=== PATIENT | male | born 1960 | race Caucasian/White ===

== ENCOUNTER 2018-06-20 20:18 | Inpatient (IN) | payer OTHER ==
[2018-06-20 21:41] LABS: Basophils % (A) 0 %; Eosinophils % (A) 1 %; HCT 34.5 % (39.0-53.0); HGB 9.7 gm/dL (13.0-17.5); Hypochromasia Marked; Lymphocytes # (A) 0.4 k/uL (1.0-4.8); Lymphocytes % (A) 5 %; MCH 20.9 pg (25.0-35.0); MCV 74.7 fL (80.0-100.0); Mean Platelet Volume 6.5; Microcytosis Slight; Monocytes # (A) 0.8 k/uL (0-1.0); Monocytes % (A) 10 %; Neutrophils # (A) 6.1 k/uL (1.3-7.7); Neutrophils % (A) 82 %; Platelet Count 250 k/uL (150-450); RBC 4.62 m/uL (4.30-5.90); RDW 13.8 % (11.5-15.5); WBC 7.5 k/uL (3.8-10.6)
[2018-06-20] MEDS ORDERED: MORPHINE SULFATE 4 MG/ML SYRINGE IVP STA (21:41)
[2018-06-20 21:50] LABS: ALT 34 U/L (21-72); AST 99 U/L (17-59); Albumin 3.6 g/dL (3.5-5.0); Alkaline Phosphatase 163 U/L (38-126); Anion Gap 10 mmol/L; Blood Urea Nitrogen 20 mg/dL (9-20); Calcium 8.9 mg/dL (8.4-10.2); Carbon Dioxide 26 mmol/L (22-30); Chloride 103 mmol/L (98-107); Glucose 111 mg/dL (74-99); Sodium 139 mmol/L (137-145); Total Bilirubin 1.6 mg/dL (0.2-1.3); Total Protein 6.7 g/dL (6.3-8.2)
--- NOTE | 2018-06-20 21:54 | XR ---
PROCEDURE: XR knee complete LT 3V DATE AND TIME: 06/20/2018 9:15 PM CLINICAL INDICATION: Pain TECHNIQUE: Department protocol. 3V COMPARISON: None FINDINGS: There is no fracture or malalignment. However, there is a joint effusion seen in the suprapatellar bursa. [id number] anterior compartment and moderate medial compartment osteoarthritis changes are appr eciated. IMPRESSION: Joint effusion. Osteoarthritis.
[2018-06-20 22:02] LABS: Potassium 4.2 mmol/L (3.5-5.1)
[2018-06-20] MEDS ORDERED: ACETAMINOPHEN TAB 500 MG TAB PO STA (22:20)
[2018-06-20] MEDS ORDERED: SODIUM CHLORIDE 0.9% 1,000 ML IV ONE (22:25)
[2018-06-20] MEDS ORDERED: VANCOMYCIN IV PER PHARMACY 1 EACH MISC MISCELLANE PRN (22:25)
--- NOTE | 2018-06-20 22:54 | ED ---
Extremity Problem HPI - General Source: patient Mode of arrival: wheelchair Limitations: no limitations <Marine Escalante - Last Filed: 06/21/18 01:36> <Devang Jacob - Last Filed: 06/21/18 02:34> - General Chief complaint: Extremity Problem,Nontraumatic Stated complaint: Knee Swelling Time Seen by Provider: 06/20/18 20:30 - History of Present Illness Initial comments: 57-year-old male patient presents to the emergency department today for evaluation of left knee pain and swelling. Patient states his been having pain to the knee for the last 4 days. Patient states that the pain suddenly increased today so he went to urgent care for evaluation. They sent him here for ultrasound to rule out DVT. Patient states he is unable to fully extend the leg but he is able to bend it. Patient denies any calf pain or tenderness. Denies any fevers or chills. Patient states he has been taking Tylenol and ibuprofen for pain but it is not helping. Patient denies any history of similar symptoms. Denies any injury to the knee. 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 Does not currently follow with a primary care physician. Patient denies any recent rash, shortness breath, chest pain, abdominal pain, nausea, vomiting, diarrhea, constipation, back pain, numbness, tingling, dizziness, weakness, hematuria, dysuria, urinary urgency, urinary frequency, headache, visual changes, or any other complaints. (Marine Escalante) - Related Data Home Medications Medication Instructions Recorded Confirmed Ferrous Sulfate [Iron] 325 mg PO DAILY 06/20/18 06/20/18 Allergies Allergy/AdvReac Type Severity Reaction Status Date / Time No Known Allergies Allergy Verified 06/20/18 20:25 Review of Systems ROS Other: All systems not noted in ROS Statement are negative. <Marine Escalante - Last Filed: 06/21/18 01:36> ROS Other: All systems not noted in ROS Statement are negative. <Devang Jacob - Last Filed: 06/21/18 02:34> ROS Statement: Those systems with pertinent positive or pertinent negative responses have been documented in the HPI. Past Medical History Past Medical History: No Reported History History of Any Multi-Drug Resistant Organisms: None Reported Past Surgical History: Orthopedic Surgery Past Psychological History: No Psychological Hx Reported Smoking Status: Never smoker Past Alcohol Use History: Occasional Past Drug Use History: None Reported <Marine Escalante M - Last Filed: 06/21/18 01:36> General Exam Limitations: no limitations General appearance: alert, in no apparent distress, other (This is a well- developed, well-nourished adult male patient in no acute distress. Vital signs upon presentation are temperature 98.9F, pulse 100, respirations 16, blood pressure 138/72, pulse ox 98% on room air.) Eye exam: Present: normal appearance, PERRL, EOMI. Absent: scleral icterus, conjunctival injection, periorbital swelling ENT exam: Present: normal exam, normal oropharynx, mucous membranes moist Respiratory exam: Present: normal lung sounds bilaterally. Absent: respiratory distress, wheezes, rales, rhonchi, stridor Cardiovascular Exam: Present: regular rate, normal rhythm, normal heart sounds. Absent: systolic murmur, diastolic murmur, rubs, gallop, clicks GI/Abdominal exam: Present: soft, normal bowel sounds. Absent: distended, tenderness, guarding, rebound, rigid Extremities exam: Present: tenderness (Left anterior knee tenderness), normal capillary refill, joint swelling (Left knee swelling and erythema), other (Left knee swelling, medial knee erythema). Absent: normal inspection, full ROM ( Patient unable to fully extend the left knee), pedal edema, calf tenderness Neurological exam: Present: alert, oriented X3, CN II-XII intact Psychiatric exam: Present: normal affect, normal mood Skin exam: Present: warm, dry, intact, normal color. Absent: rash <Marine Escalante M - Last Filed: 06/21/18 01:36> Vital Signs 06/20/18 06/20/18 06/20/18 20:23 22:09 22:27 Temperature 98.9 F 101.4 F H Pulse Rate 100 92 Pulse Rate [ Pulse Oximetery ] Respiratory 18 18 Rate Blood Pressure 138/72 140/83 Blood Pressure [Left Arm] O2 Sat by Pulse 98 99 Oximetry 06/21/18 06/21/18 06/21/18 00:33 01:13 01:20 Temperature 96.9 F L 98.8 F 99.0 F Pulse Rate 90 84 Pulse Rate [ 81 Pulse Oximetery ] Respiratory 18 16 16 Rate Blood Pressure 135/65 131/64 Blood Pressure 142/81 [Left Arm] O2 Sat by Pulse 97 96 97 Oximetry Procedures - Joint Aspiration/Injection Consent Obtained: verbal consent Time Out Performed: Yes Indications: R/O septic arthritis Side of Body: left Joint Aspirated: knee Skin Prep: Povidone-Iodine1% Local Anesthesia Used: Lidocaine 1% Needle Size Used: 20G Syringe Size Used: 20cc Fluid Obtained: turbid Patient Tolerated Procedure: well Complications: none <Devang Jacob - Last Filed: 06/21/18 02:34> Medical Decision Making - Lab Data Result diagrams: 06/20/18 21:30 06/20/18 21:30 - Radiology Data Radiology results: report reviewed, image reviewed <Marine Escalante - Last Filed: 06/21/18 01:36> - Lab Data Result diagrams: 06/20/18 21:30 06/20/18 21:30 <Devang Jacob - Last Filed: 06/21/18 02:34> - Medical Decision Making 57-year-old male patient with past medical history significant for age Ht presents to the emergency department today for evaluation of left knee pain and swelling. Physical examination did reveal small area of cellulitis to the medial aspect of the knee. Left is significantly more swollen and hot to touch than the right. Patient had good neurovascular status, distal pulses are intact. X-ray of the left knee did show evidence of effusion but no osseous abnormalities. I visited with my attending Dr. Austin to perform left knee joint aspiration, we did obtain only 2 mL of synovial fluid that did appear cloudy, we did send this for culture but did not have enough fluid for cell count or synovial crystal evaluation. Patient did have temperature in the emergency department of 101.4F, we did start vancomycin for septic arthritis. Patient will be admitted to the hospital for observation and evaluation by orthopedic specialty. Dr. Diaz accepted admission. (Marine Escalante) I saw this patient in conjunction with the physician assistant professor of education. I performed independent history and physical exam. Agree with case management. (Devang Jacob) - Lab Data Lab Results 06/20/18 06/20/18 Range/Units 21:30 21:30 WBC 7.5 (3.8-10.6) k/uL RBC 4.62 (4.30-5.90) m/uL Hgb 9.7 L (13.0-17.5) gm/dL Hct 34.5 L (39.0-53.0) % MCV 74.7 L (80.0-100.0) fL MCH 20.9 L (25.0-35.0) pg MCHC 28.0 L (31.0-37.0) g/dL RDW 13.8 (11.5-15.5) % Plt Count 250 (150-450) k/uL Neutrophils % 82 % Lymphocytes % 5 % Monocytes % 10 % Eosinophils % 1 % Basophils % 0 % Neutrophils # 6.1 (1.3-7.7) k/uL Lymphocytes # 0.4 L (1.0-4.8) k/uL Monocytes # 0.8 (0-1.0) k/uL Eosinophils # 0.0 (0-0.7) k/uL Basophils # 0.0 (0-0.2) k/uL Hypochromasia Marked Microcytosis Slight Sodium 139 (137-145) mmol/L Potassium 4.2 (3.5-5.1) mmol/L Chloride 103 (98-107) mmol/L Carbon Dioxide 26 (22-30) mmol/L Anion Gap 10 mmol/L BUN 20 (9-20) mg/dL Creatinine 0.59 L (0.66-1.25) mg/dL Est GFR (CKD-EPI)AfAm >90 (>60 ml/min/1.73 sqM) Est GFR (CKD-EPI)NonAf >90 (>60 ml/min/1.73 sqM) Glucose 111 H (74-99) mg/dL Calcium 8.9 (8.4-10.2) mg/dL Total Bilirubin 1.6 H (0.2-1.3) mg/dL AST 99 H (17-59) U/L ALT 34 (21-72) U/L Alkaline Phosphatase 163 H (38-126) U/L Total Protein 6.7 (6.3-8.2) g/dL Albumin 3.6 (3.5-5.0) g/dL - Radiology Data Three-view x-ray of the left knee is obtained. There is no fracture or malalignment. There is joint effusion seen in the suprapatellar bursa. Mild to moderate anterior compartment moderate medial compartment osteoarthritis changes are appreciated. Impression by Dr. Isra Queen shows joint effusion and osteoarthritis. (Marine Escalante) Disposition Decision to Admit Reason: Admit from EC Decision Date: 06/21/18 Decision Time: 00:41 <Marine Escalante - Last Filed: 06/21/18 01:36> <Devang Jacob - Last Filed: 06/21/18 02:34> Clinical Impression: Septic arthritis of knee, left Disposition: ADMITTED IP TO THIS HOSP Condition: Serious
[2018-06-20] MEDS ORDERED: VANCOMYCIN 1,750 MG in SODIUM CHLORIDE 0.9% 500 ML IVPB ONE (23:00)
[2018-06-20] MEDS ORDERED: LIDOCAINE 1% INJ 10MG/ML (20 ML MDV) SQ ONE (23:30)
[2018-06-21] MEDS ORDERED: NALOXONE 0.4 MG/ML 1 ML VIAL IV PRN (00:38)
[2018-06-21] MEDS: SODIUM CHLORIDE 0.9% 1,000 ML IV SCH (01:22)
--- NOTE | 2018-06-21 01:23 | P.HPIM ---
History of Present Illness H&P Date: 06/21/18 Chief Complaint: Left knee pain 57-year-old male patient presents to the emergency department via private vehicle today for evaluation of left knee pain and swelling. Patient complains his left knee over the last 4 days, that was initially mild and begun spontaneously at approximately 3 AM in the morning in the left medial patellar area, the patient denies any history of trauma, denies any redness, or subjective fevers chills or night sweats at home. The patient has been taking [id number] Tylenol for his pain and attempted to use copper fit knee brace which seems to have worsened the swelling. Patient states that the pain suddenly increased today so he went to urgent care for evaluation. They sent him here for ultrasound to rule out DVT. Patient states he is unable to fully extend the leg but he is able to bend it. Patient denies any calf pain or tenderness. Denies any fevers or chills. Patient states he has been taking Tylenol and ibuprofen for pain but it is not helping. Patient denies any history of similar symptoms. Denies any injury to the knee. 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 Does not currently follow with a primary care physician. Patient denies any recent rash, shortness breath, chest pain, abdominal pain, nausea, vomiting, diarrhea, constipation, back pain, numbness, tingling, dizziness, weakness, hematuria, dysuria, urinary urgency, urinary frequency, headache, visual changes, or any other complaints. The patient denies any other arthralgias. In the ER the patient had a conference of workup his labs are pretty unremarkable, no leukocytosis noted but was noted to be febrile [id number] Review of Systems Pertinent positives per HPI, all other review of systems are otherwise negative Past Medical History Past Medical History: No Reported History History of Any Multi-Drug Resistant Organisms: None Reported Past Surgical History: Orthopedic Surgery Past Psychological History: No Psychological Hx Reported Smoking Status: Never smoker Past Alcohol Use History: Occasional Past Drug Use History: None Reported Medications and Allergies Home Medications Medication Instructions Recorded Confirmed Type Ferrous Sulfate [Iron] 325 mg PO DAILY 06/20/18 06/20/18 History Allergies Allergy/AdvReac Type Severity Reaction Status Date / Time No Known Allergies Allergy Verified 06/20/18 20:25 Physical Exam Vitals: Vital Signs Temp Pulse Resp BP Pulse Ox 06/21/18 00:33 96.9 F L 90 18 135/65 97 06/20/18 22:27 92 99 06/20/18 22:09 101.4 F H 18 140/83 06/20/18 20:23 98.9 F 100 18 138/72 98 Intake and Output 06/20/18 06/20/18 06/21/18 14:59 22:59 06:59 Other: Weight 92.986 kg Constitutional: No acute distress, conversant, pleasant Eyes: Anicteric sclerae, moist conjunctiva, no lid-lag, PERRLA ENMT: NC/AT,Oropharynx clear, no erythema, exudates Neck:Supple, FROM, no masses, or JVD, No carotid bruits; No thyromegaly Lungs: Clear to auscultation, Clear to percussion, Normal respiratory effort, no accessory muscle use Cardiovascular: Heart regular in rate and rhythm, No murmurs, gallops, or rubs no peripheral edema Abdominal: Soft Nontender, nom distended, no guarding, no rebound or rigidity, Normoactive bowel sounds No hepatomegaly, No splenomegaly, No palpable mass No abdominal wall hernia noted Skin: Normal temperature, tone, texture, turgor, No induration No subcutaneous nodules, No rash, lesions, No ulcers Extremities:Present: tenderness (Left anterior knee tenderness), normal capillary refill, joint swelling (Left knee swelling and erythema), other (Left knee swelling, medial knee erythema). Absent: normal inspection, full ROM ( Patient unable to fully extend the left knee), pedal edema, calf tenderness Psychiatric: Alert and oriented to person, place and time, Appropriate affect Intact judgement Neuro: Muscles Strength 5/5 in all 4 extremities, Sensation to light touch grossly present throughout, Cranial nerves II-XII grossly intact. No focal sensory deficits Results CBC & Chem 7: 06/20/18 21:30 06/20/18 21:30 Labs: Abnormal Lab Results - Last 24 Hours (Table) 06/20/18 06/20/18 Range/Units 21:30 21:30 Hgb 9.7 L (13.0-17.5) gm/dL Hct 34.5 L (39.0-53.0) % MCV 74.7 L (80.0-100.0) fL MCH 20.9 L (25.0-35.0) pg MCHC 28.0 L (31.0-37.0) g/dL Lymphocytes # 0.4 L (1.0-4.8) k/uL Creatinine 0.59 L (0.66-1.25) mg/dL Glucose 111 H (74-99) mg/dL Total Bilirubin 1.6 H (0.2-1.3) mg/dL AST 99 H (17-59) U/L Alkaline Phosphatase 163 H (38-126) U/L Assessment and Plan (1) Left knee pain Current Visit: Yes Status: Acute Code(s): M25.562 - PAIN IN LEFT KNEE SNOMED Code(s): 37075237 (2) Fever Current Visit: Yes Status: Acute Code(s): R50.9 - FEVER, UNSPECIFIED SNOMED Code(s): 488563697 (3) Patellar bursitis of left knee Current Visit: Yes Status: Acute Code(s): M70.52 - OTHER BURSITIS OF KNEE, LEFT KNEE SNOMED Code(s): 0422466404664203 (4) Iron deficiency anemia Current Visit: Yes Status: Acute Code(s): D50.9 - IRON DEFICIENCY ANEMIA, UNSPECIFIED SNOMED Code(s): 42486508 (5) Osteoarthritis of left knee Current Visit: Yes Status: Acute Code(s): M17.12 - UNILATERAL PRIMARY OSTEOARTHRITIS, LEFT KNEE SNOMED Code(s): 286872930929840 Plan: The patient is patient observation anticipate a less than 2 midnight stay after presenting with left knee pain likely has patellar bursitis there is a concern for septic arthritis/bursitis given the patient being febrile in the ER, the patient has no leukocytosis or left shift, he ED physician attempted to aspirate the joint to obtain synovial fluid analysis but did not get much fluid , labs are pending. Started on empiric IV antibiotics with vancomycin and Rocephin, obtain left lower extremity venous Doppler to rule out DVT. orthopedic services been consulted for further recommendations. Continue with supportive management, Tylenol for fever, Zofran when necessary nausea and IV fluids. I will place patient on DVT prophylaxis and continue to follow his clinical course CODE STATUS full code Discussed plan of care with : Patient Anticipated discharge in 1-2 days
[2018-06-21 02:17] VITALS: BMI 26.3
[2018-06-21] MEDS: MORPHINE SULFATE 4 MG/ML SYRINGE IV PRN ×5 (02:20→21:52)
[2018-06-21] MEDS: VANCOMYCIN 1,500 MG in SODIUM CHLORIDE 0.9% 250 ML IVPB SCH ×3 (07:27→22:55)
[2018-06-21] MEDS ORDERED: LIDOCAINE 1% INJ 10MG/ML (20 ML MDV) SQ ONE (08:30)
--- NOTE | 2018-06-21 09:06 | US ---
EXAMINATION TYPE: US venous doppler duplex LE LT DATE OF EXAM: 06/21/2018 8:16 AM COMPARISON: NONE CLINICAL HISTORY: LEft leg pain. Leg started hurting about 4 days ago in middle of the night. No inj ury. Swollen leg. No redness. Pain. SIDE PERFORMED: Left TECHNIQUE: The lower extremity deep venous system is examined utilizing real time linear array sonog arely with graded compression, doppler sonography and color-flow sonography. VESSELS IMAGED: External Iliac Vein (EIV) Common Femoral Vein Deep Femoral Vein Greater Saphenous Vein * Femoral Vein Popliteal Vein Small Saphenous Vein * Proximal Calf Veins (* superficial vessels) There is normal flow, compressibility, vascular waveforms. Left Leg: Negative for DVT. Posterior knee, fluid collection seen with some internal echoes inferio rly= 5.4 x 3.3 x 1.7 cm IMPRESSION: No evident deep venous thrombosis at or above the left knee. 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
[2018-06-21] MEDS: ENOXAPARIN 40 MG/0.4 ML SYRINGE SQ SCH (09:49)
[2018-06-21 12:16] LABS: Appearance,BF Cloudy; Color,BF Yellow; Nucleated Cells, Body Fluid 6200 /uL; RBC, Body Fluid 19300 /uL
[2018-06-21 12:22] LABS: Mononuclear WBC,Body Fluid 17 %; Polynuclear WBC,Body Fluid 83 %; Total Cells Counted,Body Fluid 100
--- NOTE | 2018-06-21 13:26 | P.CNOR ---
History of Present Illness - HPI Consult date: 06/21/18 History of present illness: This is a 57-year-old male admitted for left knee pain 4 days. Patient presented to the emergency room because his pain significantly worsened yesterday. Patient denies any injury. Patient denies any history of left knee pain or gout. Patient states that he had a fever yesterday in the hospital, but otherwise he has felt fine. 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 Patient denies any numbness, weakness, tingling, abdominal pain, shortness of breath or chest pain. Review of Systems See HPI. Past Medical History Past Medical History: No Reported History History of Any Multi-Drug Resistant Organisms: None Reported Past Surgical History: Orthopedic Surgery Past Anesthesia/Blood Transfusion Reactions: No Reported Reaction Past Psychological History: No Psychological Hx Reported Smoking Status: Never smoker Past Alcohol Use History: Occasional Past Drug Use History: None Reported - Past Family History Father Additional Family Medical History / Comment(s): Nessa Garigs disease Brother(s) History Unknown: Yes Additional Family Medical History / Comment(s): hemorrhagic Telangietasia Medications and Allergies Home Medications Medication Instructions Recorded Confirmed Type Ferrous Sulfate [Iron] 325 mg PO DAILY 06/20/18 06/20/18 History Allergies Allergy/AdvReac Type Severity Reaction Status Date / Time No Known Allergies Allergy Verified 06/20/18 20:25 Physical Examination On exam patient is lying comfortably in bed in no acute distress. There is mild effusion on exam of the left knee. There is swelling and tenderness palpation over the distal quadriceps tendon. There is no erythema. Skin is intact. There is also swelling over the left patella. No fluctuance. Calf is soft and nontender to palpation. Patient has limited range of motion of the left knee due to pain and swelling. Sensation is intact. Neurovascular status and circulatory status are intact. Results X-rays of the left knee are negative for any fracture or dislocation. There is a joint effusion noted. A venous Doppler ultrasound of the left lower extremity is negative for DVT. 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 - Labs Labs: Abnormal Lab Results - Last 24 Hours (Table) 06/20/18 06/20/18 Range/Units 21:30 21:30 Hgb 9.7 L (13.0-17.5) gm/dL Hct 34.5 L (39.0-53.0) % MCV 74.7 L (80.0-100.0) fL MCH 20.9 L (25.0-35.0) pg MCHC 28.0 L (31.0-37.0) g/dL Lymphocytes # 0.4 L (1.0-4.8) k/uL Creatinine 0.59 L (0.66-1.25) mg/dL Glucose 111 H (74-99) mg/dL Total Bilirubin 1.6 H (0.2-1.3) mg/dL AST 99 H (17-59) U/L Alkaline Phosphatase 163 H (38-126) U/L H & H 06/20/18 Range/Units 21:30 Hgb 9.7 L (13.0-17.5) gm/dL Hct 34.5 L (39.0-53.0) % Result Diagrams: 06/20/18 21:30 06/20/18 21:30 Assessment and Plan (1) Effusion, left knee Current Visit: Yes Status: Acute Code(s): M25.462 - EFFUSION, LEFT KNEE SNOMED Code(s): 855735436 (2) Left knee pain Current Visit: Yes Status: Acute Code(s): M25.562 - PAIN IN LEFT KNEE SNOMED Code(s): 58964197 (3) Osteoarthritis of left knee Current Visit: Yes Status: Acute Code(s): M17.12 - UNILATERAL PRIMARY OSTEOARTHRITIS, LEFT KNEE SNOMED Code(s): 966465197485421 (4) Patellar bursitis of left knee Current Visit: Yes Status: Acute Code(s): M70.52 - OTHER BURSITIS OF KNEE, LEFT KNEE SNOMED Code(s): 1573223822644568 Plan: 1. Left knee is aspirated under sterile conditions, 1% lidocaine was used to anesthetize the area. 2 mL of blood tinged cloudy fluid is obtained. Fluid is sent to the lab. Patient tolerated the procedure well. 2. Compressive Kobe wrap to the left knee along with ice. 3. Appreciate input from medicine. 4. Further recommendations pending synovial fluid analysis and MRI. No surgical intervention planned. Will continue to follow the patient closely.
[2018-06-21] MEDS: ACETAMINOPHEN TAB 325 MG TAB PO PRN (16:04)
--- NOTE | 2018-06-21 17:42 | MR ---
EXAMINATION TYPE: MR knee LT wo/w con DATE OF EXAM: 06/21/2018 COMPARISON: None HISTORY: Pain and swelling on top of knee, rule out infection TECHNIQUE: Multiplanar, multisequence images of the knee is performed with 9.5 mL intravenous Gadavis t gadolinium contrast. FINDINGS: There is narrowing of the medial joint space. There is increased signal in the medial tibial condyle on the proton density images. There are small areas of increased signal in the subchondral medial fem oral condyle. The collateral ligaments appear intact. Anterior and posterior cruciate ligaments are i ntact. There is extensive increased signal in the posterior horn medial meniscus. There is horizontal defect through the anterior horn medial meniscus. The lateral meniscus appears fairly normal. The contrast images show diffuse synovial enhancement. There is popliteal cyst also with synovial enh ancement. There is subcutaneous edema around the knee and more anteriorly. Popliteal cyst measures 4. 5 x 1.2 cm. IMPRESSION: There is complex tear of the posterior horn medial meniscus. There is a horizontal tear anterior horn medial meniscus. There is edema on the medial aspect of the knee joint space and involving mainly th e tibial condyle and consistent with bone bruise. No fracture line seen. Knee joint effusion with extensive synovial enhancement consistent with inflammatory process. This co uld be septic arthritis. Subcutaneous edema consistent with cellulitis.
[2018-06-22] MEDS: ACETAMINOPHEN TAB 325 MG TAB PO PRN ×3 (00:07→21:00)
[2018-06-22] MEDS: SODIUM CHLORIDE 0.9% 1,000 ML IV SCH ×3 (00:08→21:43)
[2018-06-22] MEDS: MORPHINE SULFATE 4 MG/ML SYRINGE IV PRN ×3 (05:22→21:00)
[2018-06-22] MEDS ORDERED: VANCOMYCIN TROUGH DUE 1 EACH MISC MISCELLANE ONE (06:00)
[2018-06-22 06:30] LABS: Basophils % (A) 0 %; Eosinophils % (A) 1 %; Hypochromasia Marked; Lymphocytes # (A) 0.3 k/uL (1.0-4.8); Lymphocytes % (A) 6 %; MCHC 27.8 g/dL (31.0-37.0); MCV 71.9 fL (80.0-100.0); Mean Platelet Volume 6.8; Microcytosis Slight; Monocytes # (A) 0.5 k/uL (0-1.0); Monocytes % (A) 9 %; Neutrophils # (A) 4.5 k/uL (1.3-7.7); Neutrophils % (A) 83 %; Platelet Count 197 k/uL (150-450); RBC 4.03 m/uL (4.30-5.90); WBC 5.5 k/uL (3.8-10.6)
[2018-06-22 06:34] LABS: HGB 8.1 gm/dL (13.0-17.5)
[2018-06-22 07:14] LABS: Anion Gap 10 mmol/L; Blood Urea Nitrogen 16 mg/dL (9-20); Calcium 8.4 mg/dL (8.4-10.2); Carbon Dioxide 24 mmol/L (22-30); Chloride 103 mmol/L (98-107); Glucose 113 mg/dL (74-99); Potassium 3.9 mmol/L (3.5-5.1); Sodium 137 mmol/L (137-145)
[2018-06-22] MEDS: VANCOMYCIN 1,500 MG in SODIUM CHLORIDE 0.9% 250 ML IVPB SCH (08:20)
[2018-06-22] MEDS: ENOXAPARIN 40 MG/0.4 ML SYRINGE SQ SCH (08:25)
--- NOTE | 2018-06-22 10:06 | P.PN ---
Subjective Progress Note Date: 06/22/18 This is a 57-year-old male who was admitted for left knee pain to rule out septic arthritis. Patient states that his pain has not improved at all today. Patient reports pain with any movement. Patient denies any fever/chills, numbness, weakness, tingling, abdominal pain, shortness of breath or chest pain. Objective - Vital Signs Vital signs: Vital Signs Temp 99 F 06/22/18 07:00 Pulse 93 06/22/18 07:00 Resp 16 06/22/18 07:00 BP 138/80 06/22/18 07:00 Pulse Ox 97 06/22/18 07:00 Intake & Output 06/21/18 06/22/18 06/22/18 18:59 06:59 18:59 Intake Total 1250 1330 180 Output Total 950 Balance 1250 380 180 Intake: Intake, IV Titration 850 370 Amount Sodium Chloride 0.9% 1, 600 320 000 ml @ 20 mls/hr IV . Q24H ANA Rx#:[id number] Vancomycin 1,500 mg In 250 Sodium Chloride 0.9% 250 ml @ 125 mls/hr IVPB Q8H ANA Rx#:[id number] cefTRIAXone 1,000 mg In 50 Sodium Chloride 0.9% 50 ml @ 100 mls/hr IVPB Q24H ANA Rx#:[id number] Oral 400 960 180 Output: Urine 950 - Exam On exam patient is lying comfortably in bed in no acute distress. Patient is alert and oriented 3. Swelling about the left knee. There is no erythema. Patient has pain with any range of movement of the left lower extremity. Calf is soft and nontender to palpation. Sensation is intact. Skin is intact. Neurovascular status and circulatory status are intact. - Labs CBC & Chem 7: 06/22/18 06:05 06/22/18 06:05 Labs: Abnormal Lab Results - Last 24 Hours (Table) 06/22/18 06/22/18 Range/Units 06:05 06:05 RBC 4.03 L (4.30-5.90) m/uL Hgb 8.1 L D (13.0-17.5) gm/dL Hct 29.0 L (39.0-53.0) % MCV 71.9 L (80.0-100.0) fL MCH 20.0 L (25.0-35.0) pg MCHC 27.8 L (31.0-37.0) g/dL Lymphocytes # 0.3 L (1.0-4.8) k/uL Creatinine 0.50 L (0.66-1.25) mg/dL Glucose 113 H (74-99) mg/dL Microbiology - Last 24 Hours (Table) 06/21/18 09:45 Gram Stain - Preliminary Knee - Left Body Fluid Culture - Preliminary 06/20/18 21:30 Blood Culture - Preliminary Blood No Growth after 24 hours 06/21/18 00:33 Gram Stain - Preliminary Knee - Left Body Fluid Culture - Preliminary Assessment and Plan (1) Effusion, left knee Current Visit: Yes Status: Acute Code(s): M25.462 - EFFUSION, LEFT KNEE SNOMED Code(s): 724529391 (2) Left knee pain Current Visit: Yes Status: Acute Code(s): M25.562 - PAIN IN LEFT KNEE SNOMED Code(s): 00986921 (3) Osteoarthritis of left knee Current Visit: Yes Status: Acute Code(s): M17.12 - UNILATERAL PRIMARY OSTEOARTHRITIS, LEFT KNEE SNOMED Code(s): 884992317965981 (4) Patellar bursitis of left knee Current Visit: Yes Status: Acute Code(s): M70.52 - OTHER BURSITIS OF KNEE, LEFT KNEE SNOMED Code(s): 5962071221263439 (5) Septic arthritis of knee, left Current Visit: Yes Status: Acute Code(s): M00.9 - PYOGENIC ARTHRITIS, UNSPECIFIED SNOMED Code(s): 844937807 Plan: An MRI of the left knee dated 06/21/2018 shows: There is a complex tear posterior horn medial meniscus. There is a horizontal tear anterior horn medial meniscus. There is edema on the medial aspect of the knee joint space and involving mainly the tibial condyle and consistent with bone bruise. No fracture line seen. Knee joint effusion with extensive synovial enhancement consistent with inflammatory process. This could be septic arthritis. Subcutaneous edema consistent with cellulitis. 1. Preliminary Gram stain of left knee aspirate shows rare gram-positive cocci. Cultures are pending. 2. Continue ice and Kobe wrap to the left knee. 3. NPO after midnight. 4. Appreciate input from infectious disease. 5. Arthroscopic irrigation and debridement scheduled for 06/23/2018 pending medical clearance and consent.
--- NOTE | 2018-06-22 13:20 | P.PN ---
Subjective Progress Note Date: 06/22/18 The patient was seen and examined at the bedside. He noted that the pain is unchanged from the day prior and that he has intermittent sweats and 2 episodes of fever overnight. He otherwise denied dysuria, cough, chest pain, SOB, nausea , vomiting, or diarrhea. Objective - Vital Signs Vital signs: Vital Signs Temp 99 F 06/22/18 07:00 Pulse 93 06/22/18 07:00 Resp 16 06/22/18 07:00 BP 138/80 06/22/18 07:00 Pulse Ox 97 06/22/18 07:00 Intake & Output 06/21/18 06/22/18 06/22/18 18:59 06:59 18:59 Intake Total 1250 1330 180 Output Total 950 Balance 1250 380 180 Intake: Intake, IV Titration 850 370 Amount Sodium Chloride 0.9% 1, 600 320 000 ml @ 20 mls/hr IV . Q24H ANA Rx#:[id number] Vancomycin 1,500 mg In 250 Sodium Chloride 0.9% 250 ml @ 125 mls/hr IVPB Q8H ANA Rx#:[id number] cefTRIAXone 1,000 mg In 50 Sodium Chloride 0.9% 50 ml @ 100 mls/hr IVPB Q24H ANA Rx#:[id number] Oral 400 960 180 Output: Urine 950 - Exam General: Non-toxic, in no acute distress HEENT: NC/AT, anicteric sclerae, moist conjunctiva, no lid-lag, PERRLA, oropharynx clear, no erythema, exudates Cardiovascular: S1/S2 wnl, no murmurs, rubs, or gallops Lungs: Clear to auscultation, normal respiratory effort, no accessory muscle use Abdominal: Soft, nontender, non-distended, no guarding, rebound, or rigidity, normoactive bowel sounds Skin: Warm, dry, small telangiectasis of oral mucosa, lips, and on hands josi Extremities: L knee w/ KIM bandage, w/ edema and tenderness Psychiatric: Alert and oriented to person, place and time, appropriate affect, Intact judgment Neuro: CN II-XII grossly intact, no focal motor deficits - Labs CBC & Chem 7: 06/22/18 06:05 06/22/18 06:05 Labs: Abnormal Lab Results - Last 24 Hours (Table) 06/22/18 06/22/18 Range/Units 06:05 06:05 RBC 4.03 L (4.30-5.90) m/uL Hgb 8.1 L D (13.0-17.5) gm/dL Hct 29.0 L (39.0-53.0) % MCV 71.9 L (80.0-100.0) fL MCH 20.0 L (25.0-35.0) pg MCHC 27.8 L (31.0-37.0) g/dL Lymphocytes # 0.3 L (1.0-4.8) k/uL Creatinine 0.50 L (0.66-1.25) mg/dL Glucose 113 H (74-99) mg/dL Microbiology - Last 24 Hours (Table) 06/21/18 09:45 Gram Stain - Preliminary Knee - Left Body Fluid Culture - Preliminary 06/20/18 21:30 Blood Culture - Preliminary Blood No Growth after 24 hours 06/21/18 00:33 Gram Stain - Preliminary Knee - Left Body Fluid Culture - Preliminary Assessment and Plan Plan: L knee pain and swelling, likely septic arthritis - Ortho recs appreciated - Knee MRI: Complex tear of post horn of medial meniscus, horizontal tear ant horn medial meniscus, edema at medial aspect consistent w/ bone bruise, w/ synovial enhancement consistent w/ possible septic arthritis. 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
[2018-06-22] MEDS: VANCOMYCIN 1,750 MG in SODIUM CHLORIDE 0.9% 500 ML IVPB SCH ×2 (15:09→23:28)
[2018-06-22] MEDS: HEPARIN SODIUM,PORCINE 5,000 UNIT/ML 1 ML VIAL SQ SCH (21:01)
--- NOTE | 2018-06-22 21:57 | P.CONS ---
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 He does not have history of prior difficulty with left knee and does not have a known history of gout or other significant joint troubles. 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 The patient noticed that the knee became considerably more painful. It had difficulty with ambulation in counseling presented to the emergency center. Imaging revealed evidence of swelling. He was seen by orthopedics aspiration was obtained and MRI has also been obtained. Evidence of significant synovial swelling to the knee was noted and concerns to a septic arthritis. Apparently will be going to the operating room in the morning for surgical intervention. Patient does not recall significant fevers chills or rigors. Review of Systems HEENT:Denies headache or acute visual change. Denies sinus or mouth discomforts. Denies neck stiffness or pain. Denies significant oral cavity pain. Denies difficulty on swallowing. Lungs: Denies significant shortness of breath, cough, sputum production, or hemoptysis. Cardiovascular: Denies significant shortness of breath, chest pain, chest wall pain, orthopnea, dyspnea on exertion, syncope Gastrointestinal:Denies nausea, vomiting, diarrhea, constipation, hematemesis, melena, hematochezia. No no significant change of bowel habit noticed. Musculoskeletal: As per the HPI increasing pain and swelling to the left knee no other new acute joint difficulties. Skin: Denies new rash or lesions. No new ulcers or wounds are related.. Neuro: Denies headache or visual change. Denies any new onset weakness or difficulty with ambulation. Denies falls or seizures. Psychiatric:Denies anxiety or depression. Endocrine: Denies significant fatigue, denies significant weight loss or weight gain. Past Medical History Past Medical History: No Reported History History of Any Multi-Drug Resistant Organisms: None Reported Past Surgical History: Orthopedic Surgery Past Anesthesia/Blood Transfusion Reactions: No Reported Reaction Past Psychological History: No Psychological Hx Reported Additional Psychological History / Comment(s): lives independently. Adult son can help take care of him after his discharge. 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 No experience. No international travel. No animal exposures. Lifelong nonsmoker. Denies significant current alcohol or recreational drug use Smoking Status: Never smoker Past Alcohol Use History: Occasional Past Drug Use History: None Reported - Past Family History Father Additional Family Medical History / Comment(s): Nessa Garigs disease Brother(s) History Unknown: Yes Additional Family Medical History / Comment(s): hemorrhagic Telangietasia Medications and Allergies Home Medications and Allergies Comment(s): Current Medications Acetaminophen (Tylenol Tab) 650 mg PO Q6HR PRN PRN Reason: Mild Pain or Fever > 100.5 Last Admin: 06/22/18 21:00 Dose: 650 mg Heparin Sodium (Porcine) (Heparin) 5,000 unit SQ Q12HR [facility] Last Admin: 06/22/18 21:01 Dose: 5,000 unit Sodium Chloride (Saline 0.9%) 1,000 mls @ 20 mls/hr IV .Q24H [facility] Last Admin: 06/22/18 00:08 Dose: 20 mls/hr Ceftriaxone Sodium 1,000 mg/ (Sodium Chloride) 50 mls @ 100 mls/hr IVPB Q24H [facility] Last Admin: 06/22/18 21:01 Dose: 100 mls/hr Sodium Chloride (Saline 0.9%) 1,000 mls @ 100 mls/hr IV .Q10H [facility] Last Admin: 06/22/18 21:43 Dose: Not Given Vancomycin HCl 1,750 mg/ (Sodium Chloride) 500 mls @ 167 mls/hr IVPB Q8H [facility] Last Admin: 06/22/18 15:09 Dose: 167 mls/hr Miscellaneous Information (Vancomycin Trough Due) 0 each MISCELLANE DIRECTED ONE Stop: 06/23/18 23:01 Morphine Sulfate (Morphine Sulfate (Inj)) 4 mg IV Q4HR PRN PRN Reason: Severe Pain Last Admin: 06/22/18 21:00 Dose: 4 mg Naloxone HCl (Narcan) 0.2 mg IV Q2M PRN PRN Reason: Opioid Reversal Home Medications Medication Instructions Recorded Confirmed Type Ferrous Sulfate [Iron] 325 mg PO DAILY 06/20/18 06/20/18 History Allergies Allergy/AdvReac Type Severity Reaction Status Date / Time No Known Allergies Allergy Verified 06/20/18 20:25 Physical Exam Vitals: Vital Signs Temp Pulse Resp BP Pulse Ox 06/22/18 14:53 100.5 F H 91 16 142/84 97 06/22/18 07:00 99 F 93 16 138/80 97 06/22/18 06:10 99.3 F 92 18 136/83 96 06/22/18 02:23 99.5 F 06/21/18 23:00 100.6 F H 95 14 145/80 95 Intake and Output 06/22/18 06/22/18 06/22/18 06:59 14:59 22:59 Intake Total 1330 1252 Output Total 950 200 Balance 380 1052 Intake: Intake, IV Titration 370 850 Amount Sodium Chloride 0.9% 1, 600 000 ml @ 100 mls/hr IV . Q10H ANA Rx#:[id number] Sodium Chloride 0.9% 1, 320 000 ml @ 20 mls/hr IV . Q24H ANA Rx#:[id number] Vancomycin 1,500 mg In 250 Sodium Chloride 0.9% 250 ml @ 125 mls/hr IVPB Q8H ANA Rx#:[id number] cefTRIAXone 1,000 mg In 50 Sodium Chloride 0.9% 50 ml @ 100 mls/hr IVPB Q24H ANA Rx#:[id number] Oral 960 402 Output: Urine 950 200 57-year-old male of inappropriate build is not in bryan distress HEENT: Anicteric conjunctiva are pink and moist nasal mucosa grossly intact without significant lesions, there is no thrush. Dentition is somewhat poor for age Neck: The neck is supple without significant lymphadenopathy or thyromegaly. Lungs: Good bilateral air entry without significant crackles or wheezing. There is no significant bronchial sounds. There is no egophony or dullness. Heart: Regular rate and rhythm with an audible S1-S2, no S3 no S4. There is no significant murmur click or rub, PMI was nondisplaced. Abdomen: Positive bowel sounds soft and nontender without palpable masses or organomegaly. There was no guarding or rebound. Extremities: The upper extremities have excellent pulses they are symmetric, no significant petechiae or telangiectasia. The right arm shows evidence of the prior surgical intervention for his fracture, evidence of interossei muscle wasting especially between the thumb and index finger. No splinter hemorrhages were noted. Lower extremities reveal evidence of no significant chronic edema. No significant open wounds are seen. The left knee has evidence of the extensive swelling which is somewhat tender and limited range of motion. It is warm to touch. There is no ascending erythema. There is no severe lymphadenopathy into the left inguinal area. No other abnormal lymph nodes are seen. Neuro: Awake alert oriented to person place and time. There are no acute new gross focal sensory motor deficits. Results CBC & Chem 7: 06/22/18 06:05 06/22/18 06:05 Labs: Abnormal Lab Results - Last 24 Hours (Table) 06/22/18 06/22/18 Range/Units 06:05 06:05 RBC 4.03 L (4.30-5.90) m/uL Hgb 8.1 L D (13.0-17.5) gm/dL Hct 29.0 L (39.0-53.0) % MCV 71.9 L (80.0-100.0) fL MCH 20.0 L (25.0-35.0) pg MCHC 27.8 L (31.0-37.0) g/dL Lymphocytes # 0.3 L (1.0-4.8) k/uL Creatinine 0.50 L (0.66-1.25) mg/dL Glucose 113 H (74-99) mg/dL Microbiology - Last 24 Hours (Table) 06/21/18 19:10 Blood Culture - Preliminary Blood No Growth after 24 hours 06/21/18 18:21 Blood Culture - Preliminary Blood No Growth after 24 hours 06/21/18 09:45 Gram Stain - Preliminary Knee - Left Body Fluid Culture - Preliminary 06/20/18 21:30 Blood Culture - Preliminary Blood No Growth after 24 hours 06/21/18 00:33 Gram Stain - Preliminary Knee - Left Body Fluid Culture - Preliminary Laboratory Results WBC 5.5 k/uL (3.8-10.6) 06/22/18 06:05 RBC 4.03 m/uL (4.30-5.90) L 06/22/18 06:05 Hgb 8.1 gm/dL (13.0-17.5) L D 06/22/18 06:05 Hct 29.0 % (39.0-53.0) L 06/22/18 06:05 MCV 71.9 fL (80.0-100.0) L 06/22/18 06:05 MCH 20.0 pg (25.0-35.0) L 06/22/18 06:05 MCHC 27.8 g/dL (31.0-37.0) L 06/22/18 06:05 RDW 14.0 % (11.5-15.5) 06/22/18 06:05 Plt Count 197 k/uL (150-450) 06/22/18 06:05 Neutrophils % 83 % 06/22/18 06:05 Lymphocytes % 6 % 06/22/18 06:05 Monocytes % 9 % 06/22/18 06:05 Eosinophils % 1 % 06/22/18 06:05 Basophils % 0 % 06/22/18 06:05 Neutrophils # 4.5 k/uL (1.3-7.7) 06/22/18 06:05 Lymphocytes # 0.3 k/uL (1.0-4.8) L 06/22/18 06:05 Monocytes # 0.5 k/uL (0-1.0) 06/22/18 06:05 Eosinophils # 0.0 k/uL (0-0.7) 06/22/18 06:05 Basophils # 0.0 k/uL (0-0.2) 06/22/18 06:05 Hypochromasia Marked 06/22/18 06:05 Microcytosis Slight 06/22/18 06:05 Sodium 137 mmol/L (137-145) 06/22/18 06:05 Potassium 3.9 mmol/L (3.5-5.1) 06/22/18 06:05 Chloride 103 mmol/L (98-107) 06/22/18 06:05 Carbon Dioxide 24 mmol/L (22-30) 06/22/18 06:05 Anion Gap 10 mmol/L 06/22/18 06:05 BUN 16 mg/dL (9-20) 06/22/18 06:05 Creatinine 0.50 mg/dL (0.66-1.25) L 06/22/18 06:05 Est GFR (CKD-EPI)AfAm >90 (>60 ml/min/1.73 sqM) 06/22/18 06:05 Est GFR (CKD-EPI)NonAf >90 (>60 ml/min/1.73 sqM) 06/22/18 06:05 Glucose 113 mg/dL (74-99) H 06/22/18 06:05 Calcium 8.4 mg/dL (8.4-10.2) 06/22/18 06:05 Total Bilirubin 1.6 mg/dL (0.2-1.3) H 06/20/18 21:30 AST 99 U/L (17-59) H 06/20/18 21:30 ALT 34 U/L (21-72) 06/20/18 21:30 Alkaline Phosphatase 163 U/L (38-126) H 06/20/18 21:30 Total Protein 6.7 g/dL (6.3-8.2) 06/20/18 21:30 Albumin 3.6 g/dL (3.5-5.0) 06/20/18 21:30 Fluid Source Synovial 06/21/18 09:45 Fluid Color Yellow 06/21/18 09:45 Fluid Appearance Cloudy 06/21/18 09:45 Fluid RBC 05617 /uL 06/21/18 09:45 Fluid Nucleated Cells 6200 /uL 06/21/18 09:45 Fluid Polynuclear WBCs 83 % 06/21/18 09:45 Fluid Mononuclear WBCs 17 % 06/21/18 09:45 Synovial Source Left Knee 06/21/18 09:45 Synovial Crystals 06/21/18 09:45 Vancomycin Trough 6.8 ug/mL 06/22/18 06:05 Blood Type A Positive 06/22/18 19:56 Blood Type Recheck CABO Indicated 06/22/18 19:56 Antibody Screen NEGATIVE 06/22/18 19:56 Spec Expiration Date 06/25/2018 - 0874 06/22/18 19:56 Microbiology 06/21/18 19:10 Blood Blood Culture - Preliminary No Growth after 24 hours 06/21/18 18:21 Blood Blood Culture - Preliminary No Growth after 24 hours 06/21/18 09:45 Knee - Left Gram Stain - Preliminary 06/21/18 09:45 Knee - Left Body Fluid Culture - Preliminary 06/20/18 21:30 Blood Blood Culture - Preliminary No Growth after 24 hours 06/21/18 00:33 Knee - Left Gram Stain - Preliminary 06/21/18 00:33 Knee - Left Body Fluid Culture - Preliminary Assessment and Plan (1) Septic arthritis of knee, left Narrative/Plan: Pleasant 57-year-old male presents to hospital with increasing pain and swelling to his left knee. 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 No specific recent falls or penetrating injuries have occurred to the knee. The patient has been seeing orthopedics and aspiration showing evidence of the fluid from the knee with gram-positive cocci. Antibiotic therapy with vancomycin is being utilized currently and is appropriate we'll add in Ancef also pending further culture results. Plans for operative care in the morning have been noted. Multivitamin with zinc is added to the regimen to help with healing Will likely need an outpatient course of intravenous antibiotic therapy after discharge for a septic arthritis, final plans can be made once further culture results are available. Social work consult. Current Visit: Yes Status: Acute Code(s): M00.9 - PYOGENIC ARTHRITIS, UNSPECIFIED SNOMED Code(s): 662517753
[2018-06-23] MEDS: ceFAZolin IN SWFI 2 GM/20 ML SYRINGE IVP SCH ×4 (01:31→23:05)
[2018-06-23] MEDS: MORPHINE SULFATE 4 MG/ML SYRINGE IV PRN (02:30)
[2018-06-23] MEDS ORDERED: LACTATED RINGERS 1,000 ML IV ONE (07:35)
[2018-06-23] MEDS ORDERED: ACETAMINOPHEN TAB 325 MG TAB PO ONE (07:36)
[2018-06-23] MEDS ORDERED: ONDANSETRON 4 MG/2 ML VIAL IVP ONE (07:36)
[2018-06-23] MEDS ORDERED: DEXAMETHASONE SOD PHOSPHATE 10 MG/ML 1 ML VIAL IV ONE (07:37)
[2018-06-23 08:11] LABS: Anion Gap 10 mmol/L; Blood Urea Nitrogen 16 mg/dL (9-20); Calcium 8.1 mg/dL (8.4-10.2); Carbon Dioxide 25 mmol/L (22-30); Chloride 104 mmol/L (98-107); Glucose 104 mg/dL (74-99); Sodium 139 mmol/L (137-145)
[2018-06-23 08:19] LABS: Potassium 4.7 mmol/L (3.5-5.1)
[2018-06-23] MEDS ORDERED: LABETALOL 5 MG/ML VIAL MDV ONE (08:22)
[2018-06-23] MEDS ORDERED: SUCCINYLCHOLINE CHLORIDE 100 MG/5 ML SYR IV ONE (08:22)
[2018-06-23] MEDS ORDERED: fentaNYL (PF) 50 MCG/ML 2 ML AMP ONE (08:22)
[2018-06-23] MEDS ORDERED: LIDOCAINE 1% INJ 10MG/ML (20 ML MDV) ONE (08:22)
[2018-06-23] MEDS ORDERED: PROPOFOL 10 MG/ML 20 ML VIAL IV ONE (08:22)
[2018-06-23] MEDS ORDERED: MIDAZOLAM 2 MG/2 ML VIAL ONE (08:22)
[2018-06-23] MEDS ORDERED: HYDROmorphone (PF) 1 MG/ML ONE (08:22)
[2018-06-23] MEDS ORDERED: CEFAZOLIN IRRIGATION ONE (08:42)
[2018-06-23] MEDS ORDERED: SODIUM CHLORIDE 0.9% IRRIGATION ONE (08:42)
--- NOTE | 2018-06-23 08:55 | P.OP ---
Date of Procedure: 06/23/18 Preoperative Diagnosis: Septic arthritis left knee Postoperative Diagnosis: Septic arthritis left knee Procedure(s) Performed: Arthroscopic irrigation and debridement left knee Anesthesia: GLENN Surgeon: Eligio Rollins Twister Tender #1: Tameka Aldridge Estimated Blood Loss (ml): 5 Pathology: other (cultures x 1) Condition: stable Disposition: PACU Indications for Procedure: This is a 57-year-old gentleman that presented to Hospital with new onset pain and swelling in his left knee. An aspiration of his left knee revealed gram- positive bacteria. After discussing the surgical nonsurgical treatment options with him at length, I recommended arthroscopic irrigation debridement of his left knee, and informed consent was obtained. Operative Findings: The operative findings are consistent with septic arthritis of the left knee Description of Procedure: Patient was seen and evaluated in the preoperative area, the operative site was marked with a skin marker. The patient was then brought to the operating room. A general anesthetic was administered by the anesthesia department. Tourniquet was placed on the left upper thigh and the left lower extremity was then prepped and draped in usual sterile fashion. A universal timeout was then performed confirming the patient's name, surgical site, ALLERGIES, and consent. The limb was then exsanguinated and tourniquet insufflated to 250 mmHg. Standard inferior medial and inferior lateral portals were established in the knee. The trochar was inserted in the inferolateral portal. Examination began at the patellofemoral joint. There is noted to be a large amount of synovitis. Examination of the rest the knee revealed evidence of septic arthritis. Next, using an arthroscopic shaver thorough irrigation debridement was performed.. A partial synovectomy is performed the medial femoral, lateral femoral, patellofemoral compartments. Knee was then copiously irrigated, instruments removed, incisions were closed with 4-0 nylon. A sterile dressing was then applied, and the tourniquet was released. Patient was then transferred to recovery room in stable condition. The resident programs assistant IDRIS Rios was required due the complexity of surgery the need for skilled sales assistant entertainment and media.
[2018-06-23] MEDS ORDERED: HYDROmorphone 1 MG/ML 1 ML SYRINGE IVP ONE ×2 (09:50→09:58)
[2018-06-23] MEDS ORDERED: HYDROmorphone 0.5 MG/0.5 ML SYRINGE IVP ONE (09:50)
[2018-06-23] MEDS: SODIUM CHLORIDE 0.9% 1,000 ML IV SCH ×4 (10:12→22:33)
[2018-06-23] MEDS ORDERED: SODIUM CHLORIDE 0.9% 1,000 ML IV ONE (10:25)
[2018-06-23] MEDS: VANCOMYCIN 1,750 MG in SODIUM CHLORIDE 0.9% 500 ML IVPB SCH ×2 (11:16→21:07)
[2018-06-23] MEDS: HEPARIN SODIUM,PORCINE 5,000 UNIT/ML 1 ML VIAL SQ SCH (13:51)
[2018-06-23] MEDS: MULTIVITAMINS, THERA 1 EACH TAB PO SCH (14:04)
--- NOTE | 2018-06-23 19:12 | P.PN ---
Subjective Progress Note Date: 06/23/18 The patient seen and examined at the bedside. Notes that after undergoing the arthroscopy, his pain has improved significantly. Otherwise denied fever, chills , nausea, vomiting, diarrhea, chest pain, or SOB. Patient had an episode of epistaxis overnight w/ resolved spontaneously. Objective - Vital Signs Vital signs: Vital Signs Temp 98.1 F 06/23/18 15:24 Pulse 77 06/23/18 15:24 Resp 17 06/23/18 15:24 BP 139/79 06/23/18 15:24 Pulse Ox 99 06/23/18 15:24 Intake & Output 06/23/18 06/23/18 06/24/18 06:59 18:59 06:59 Intake Total 800 1965 Output Total 150 201 Balance 650 1764 Intake: IV 1001 Intake, IV Titration 800 484 Amount Sodium Chloride 0.9% 1, 300 000 ml @ 100 mls/hr IV . Q10H ANA Rx#:[id number] Sodium Chloride 0.9% 1, 140 000 ml @ 70 mls/hr IV . [id number] ANA Rx#:[id number] Vancomycin 1,750 mg In 500 Sodium Chloride 0.9% 500 ml @ 167 mls/hr IVPB Q8H ANA Rx#:[id number] Vancomycin 1,750 mg In 344 Sodium Chloride 0.9% 500 ml @ 167 mls/hr IVPB Q8H ANA Rx#:[id number] Oral 480 Output: Urine 150 200 Estimated Blood Loss 1 Other: # Voids 1 - Exam General: Non-toxic, in no acute distress HEENT: NC/AT, anicteric sclerae, moist conjunctiva, no lid-lag, PERRLA, oropharynx clear, no erythema, exudates Cardiovascular: S1/S2 wnl, no murmurs, rubs, or gallops Lungs: Clear to auscultation, normal respiratory effort, no accessory muscle use Abdominal: Soft, nontender, non-distended, no guarding, rebound, or rigidity, normoactive bowel sounds Skin: Warm, dry, small telangiectasis of oral mucosa, lips, and on hands josi Extremities: L knee w/ KIM bandage, w/ ice pack in place Psychiatric: Alert and oriented to person, place and time, appropriate affect, Intact judgment Neuro: CN II-XII grossly intact, no focal motor deficits - Labs CBC & Chem 7: 06/22/18 06:05 06/23/18 06:27 Labs: Abnormal Lab Results - Last 24 Hours (Table) 06/23/18 Range/Units 06:27 Creatinine 0.46 L (0.66-1.25) mg/dL Glucose 104 H (74-99) mg/dL Calcium 8.1 L (8.4-10.2) mg/dL Microbiology - Last 24 Hours (Table) 06/23/18 09:02 Wound Culture - Preliminary Knee - Left 06/23/18 09:02 Anaerobic Culture - Preliminary Knee - Left 06/21/18 09:45 Gram Stain - Preliminary Knee - Left Body Fluid Culture - Preliminary Presumptive Staph aureus 06/21/18 00:33 Gram Stain - Preliminary Knee - Left Body Fluid Culture - Preliminary Presumptive Staph aureus 06/20/18 21:30 Blood Culture - Preliminary Blood No Growth after 48 hours 06/21/18 19:10 Blood Culture - Preliminary Blood No Growth after 24 hours 06/21/18 18:21 Blood Culture - Preliminary Blood No Growth after 24 hours Assessment and Plan Plan: L knee pain and swelling, likely septic arthritis - S/p arthroscopic irrigation and debridement - Knee MRI: Complex tear of post horn of medial meniscus, horizontal tear ant horn medial meniscus, edema at medial aspect consistent w/ bone bruise, w/ synovial enhancement consistent w/ possible septic arthritis. 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
[2018-06-23] MEDS: ACETAMINOPHEN TAB 325 MG TAB PO PRN (22:19)
--- NOTE | 2018-06-23 23:48 | P.PN ---
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 He does not have history of prior difficulty with left knee and does not have a known history of gout or other significant joint troubles. 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 The patient noticed that the knee became considerably more painful. It had difficulty with ambulation in counseling presented to the emergency center. Imaging revealed evidence of swelling. He was seen by orthopedics aspiration was obtained and MRI has also been obtained. Evidence of significant synovial swelling to the knee was noted and concerns to a septic arthritis. Apparently will be going to the operating room in the morning for surgical intervention. Patient does not recall significant fevers chills or rigors. 06/23/2018 the patient is now status post the arthroscopic evaluation and debridement of the left knee. Aspirate from the knee is starting to show evidence of a staphylococcal infection. Patient is aware of his diagnosis of septic arthritis. Objective - Vital Signs Vital signs: Vital Signs Temp 98.1 F 06/23/18 15:24 Pulse 77 06/23/18 15:24 Resp 17 06/23/18 15:24 BP 139/79 06/23/18 15:24 Pulse Ox 99 06/23/18 15:24 Intake & Output 06/23/18 06/23/18 06/24/18 06:59 18:59 06:59 Intake Total 800 1965 Output Total 150 201 Balance 650 1764 Intake: IV 1001 Intake, IV Titration 800 484 Amount Sodium Chloride 0.9% 1, 300 000 ml @ 100 mls/hr IV . Q10H ANA Rx#:[id number] Sodium Chloride 0.9% 1, 140 000 ml @ 70 mls/hr IV . [id number] ANA Rx#:[id number] Vancomycin 1,750 mg In 500 Sodium Chloride 0.9% 500 ml @ 167 mls/hr IVPB Q8H ANA Rx#:[id number] Vancomycin 1,750 mg In 344 Sodium Chloride 0.9% 500 ml @ 167 mls/hr IVPB Q8H ANA Rx#:[id number] Oral 480 Output: Urine 150 200 Estimated Blood Loss 1 Other: # Voids 1 1 - Exam 57-year-old male of appropriate build is not in bryan distress HEENT: Anicteric conjunctiva are pink and moist nasal mucosa grossly intact without significant lesions, there is no thrush. Dentition is somewhat poor for age Neck: The neck is supple without significant lymphadenopathy or thyromegaly. Lungs: Good bilateral air entry without significant crackles or wheezing. There is no significant bronchial sounds. There is no egophony or dullness. Heart: Regular rate and rhythm with an audible S1-S2, no S3 no S4. There is no significant murmur click or rub, PMI was nondisplaced. Abdomen: Positive bowel sounds soft and nontender without palpable masses or organomegaly. There was no guarding or rebound. Extremities: The upper extremities have excellent pulses they are symmetric, no significant petechiae or telangiectasia. The right arm shows evidence of the prior surgical intervention for his fracture, evidence of interossei muscle wasting especially between the thumb and index finger. No splinter hemorrhages were noted. Lower extremities reveal evidence of no significant chronic edema. No significant open wounds are seen. The left knee has evidence of the surgical dressing in place. There is no ascending erythema. There is no severe lymphadenopathy into the left inguinal area. No other abnormal lymph nodes are seen. Neuro: Awake alert oriented to person place and time. There are no acute new gross focal sensory motor deficits. - Labs CBC & Chem 7: 06/22/18 06:05 06/23/18 06:27 Labs: Abnormal Lab Results - Last 24 Hours (Table) 06/23/18 Range/Units 06:27 Creatinine 0.46 L (0.66-1.25) mg/dL Glucose 104 H (74-99) mg/dL Calcium 8.1 L (8.4-10.2) mg/dL Microbiology - Last 24 Hours (Table) 06/20/18 21:30 Blood Culture - Preliminary Blood No Growth after 72 hours 06/21/18 19:10 Blood Culture - Preliminary Blood No Growth after 48 hours 06/21/18 18:21 Blood Culture - Preliminary Blood No Growth after 48 hours 06/23/18 09:02 Wound Culture - Preliminary Knee - Left 06/23/18 09:02 Anaerobic Culture - Preliminary Knee - Left 06/21/18 09:45 Gram Stain - Preliminary Knee - Left Body Fluid Culture - Preliminary Presumptive Staph aureus 06/21/18 00:33 Gram Stain - Preliminary Knee - Left Body Fluid Culture - Preliminary Presumptive Staph aureus Laboratory Results WBC 5.5 k/uL (3.8-10.6) 06/22/18 06:05 RBC 4.03 m/uL (4.30-5.90) L 06/22/18 06:05 Hgb 8.1 gm/dL (13.0-17.5) L D 06/22/18 06:05 Hct 29.0 % (39.0-53.0) L 06/22/18 06:05 MCV 71.9 fL (80.0-100.0) L 06/22/18 06:05 MCH 20.0 pg (25.0-35.0) L 06/22/18 06:05 MCHC 27.8 g/dL (31.0-37.0) L 06/22/18 06:05 RDW 14.0 % (11.5-15.5) 06/22/18 06:05 Plt Count 197 k/uL (150-450) 06/22/18 06:05 Neutrophils % 83 % 06/22/18 06:05 Lymphocytes % 6 % 06/22/18 06:05 Monocytes % 9 % 06/22/18 06:05 Eosinophils % 1 % 06/22/18 06:05 Basophils % 0 % 06/22/18 06:05 Neutrophils # 4.5 k/uL (1.3-7.7) 06/22/18 06:05 Lymphocytes # 0.3 k/uL (1.0-4.8) L 06/22/18 06:05 Monocytes # 0.5 k/uL (0-1.0) 06/22/18 06:05 Eosinophils # 0.0 k/uL (0-0.7) 06/22/18 06:05 Basophils # 0.0 k/uL (0-0.2) 06/22/18 06:05 Hypochromasia Marked 06/22/18 06:05 Microcytosis Slight 06/22/18 06:05 Sodium 139 mmol/L (137-145) 06/23/18 06:27 Potassium 4.7 mmol/L (3.5-5.1) 06/23/18 06:27 Chloride 104 mmol/L (98-107) 06/23/18 06:27 Carbon Dioxide 25 mmol/L (22-30) 06/23/18 06:27 Anion Gap 10 mmol/L 06/23/18 06:27 BUN 16 mg/dL (9-20) 06/23/18 06:27 Creatinine 0.46 mg/dL (0.66-1.25) L 06/23/18 06:27 Est GFR (CKD-EPI)AfAm >90 (>60 ml/min/1.73 sqM) 06/23/18 06:27 Est GFR (CKD-EPI)NonAf >90 (>60 ml/min/1.73 sqM) 06/23/18 06:27 Glucose 104 mg/dL (74-99) H 06/23/18 06:27 Calcium 8.1 mg/dL (8.4-10.2) L 06/23/18 06:27 Total Bilirubin 1.6 mg/dL (0.2-1.3) H 06/20/18 21:30 AST 99 U/L (17-59) H 06/20/18 21:30 ALT 34 U/L (21-72) 06/20/18 21:30 Alkaline Phosphatase 163 U/L (38-126) H 06/20/18 21:30 Total Protein 6.7 g/dL (6.3-8.2) 06/20/18 21:30 Albumin 3.6 g/dL (3.5-5.0) 06/20/18 21:30 Fluid Source Synovial 06/21/18 09:45 Fluid Color Yellow 06/21/18 09:45 Fluid Appearance Cloudy 06/21/18 09:45 Fluid RBC 93188 /uL 06/21/18 09:45 Fluid Nucleated Cells 6200 /uL 06/21/18 09:45 Fluid Polynuclear WBCs 83 % 06/21/18 09:45 Fluid Mononuclear WBCs 17 % 06/21/18 09:45 Synovial Source Left Knee 06/21/18 09:45 Synovial Crystals 06/21/18 09:45 Vancomycin Trough 7.9 ug/mL 06/22/18 23:34 Blood Type A Positive 06/22/18 19:56 Blood Type Confirm A Positive 06/22/18 23:34 Blood Type Recheck CABO Indicated 06/22/18 19:56 Antibody Screen NEGATIVE 06/22/18 19:56 Spec Expiration Date 06/25/2018 - 2356 06/22/18 19:56 Microbiology 06/20/18 21:30 Blood Blood Culture - Preliminary No Growth after 72 hours 06/21/18 19:10 Blood Blood Culture - Preliminary No Growth after 48 hours 06/21/18 18:21 Blood Blood Culture - Preliminary No Growth after 48 hours 06/23/18 09:02 Knee - Left Wound Culture - Preliminary 06/23/18 09:02 Knee - Left Anaerobic Culture - Preliminary 06/21/18 09:45 Knee - Left Gram Stain - Preliminary 06/21/18 09:45 Knee - Left Body Fluid Culture - Preliminary Presumptive Staph aureus 06/21/18 00:33 Knee - Left Gram Stain - Preliminary 06/21/18 00:33 Knee - Left Body Fluid Culture - Preliminary Presumptive Staph aureus Assessment and Plan (1) Septic arthritis of knee, left Narrative/Plan: Pleasant 57-year-old male presents to hospital with increasing pain and swelling to his left knee. 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 No specific recent falls or penetrating injuries have occurred to the knee. The patient has been seeing orthopedics and aspiration showing evidence of the fluid from the knee with gram-positive cocci. Antibiotic therapy with vancomycin is being utilized currently and is appropriate we'll add in Ancef also pending further culture results. Plans for operative care in the morning have been noted. Multivitamin with zinc is added to the regimen to help with healing Will likely need an outpatient course of intravenous antibiotic therapy after discharge for a septic arthritis, final plans can be made once further culture results are available. Social work consult. 06/23/2018 reveals herber gentleman status post knee arthroscopic debridement of his left knee. Cultures revealing evidence of staph aureus only final culture results. If the stent is likely the patient will require IV access placement and outpatient intravenous antibiotic therapy via the [facility] for 42 days regarding his septic arthritis. Pain control is adequate at this point in time continue multivitamin with zinc. Ambulation is as per the orthopedic service. Current Visit: Yes Status: Acute Code(s): M00.9 - PYOGENIC ARTHRITIS, UNSPECIFIED SNOMED Code(s): 624402117
[2018-06-24] MEDS ORDERED: VANCOMYCIN TROUGH DUE 1 EACH MISC MISCELLANE ONE (02:00)
[2018-06-24] MEDS: VANCOMYCIN 1,750 MG in SODIUM CHLORIDE 0.9% 500 ML IVPB SCH ×3 (02:52→19:02)
[2018-06-24] MEDS: SODIUM CHLORIDE 0.9% 1,000 ML IV SCH ×3 (02:54→14:52)
[2018-06-24] MEDS: ACETAMINOPHEN TAB 325 MG TAB PO PRN ×2 (04:09→14:51)
[2018-06-24 07:15] LABS: HCT 25.6 % (39.0-53.0); HGB 7.7 gm/dL (13.0-17.5); Hypochromasia Marked; MCH 21.6 pg (25.0-35.0); MCHC 30.2 g/dL (31.0-37.0); MCV 71.4 fL (80.0-100.0); Mean Platelet Volume 6.5; Microcytosis Slight; Platelet Count 229 k/uL (150-450); RBC 3.59 m/uL (4.30-5.90); RDW 13.8 % (11.5-15.5); WBC 5.2 k/uL (3.8-10.6)
[2018-06-24 07:48] LABS: Anion Gap 5 mmol/L; Blood Urea Nitrogen 15 mg/dL (9-20); Calcium 8.5 mg/dL (8.4-10.2); Carbon Dioxide 30 mmol/L (22-30); Chloride 105 mmol/L (98-107); Glucose 127 mg/dL (74-99); Potassium 4.1 mmol/L (3.5-5.1); Sodium 140 mmol/L (137-145)
[2018-06-24 08:06] LABS: C Reactive Protein 175.4 mg/L (<10.0)
[2018-06-24 11:12] LABS: Erythrocyte Sedimentation Rate 79 mm/hr (0-15)
[2018-06-24] MEDS: MULTIVITAMINS, THERA 1 EACH TAB PO SCH (11:16)
--- NOTE | 2018-06-24 13:18 | P.PN ---
Progress Note - Text Progress Note Date: 06/24/18 Patient is a pleasant 57-year-old male who is examined at bedside after undergoing left knee irrigation and debridement performed by Dr. Eligio Rollins yesterday, 06/23/2018. Postoperatively he has had significant improvement of his symptoms. He is not currently. Sitting pain in the left knee. He does continue to have some swelling of the knee. His pain has been controlled with ice. He has been able to ambulate without significant difficulty. He is not taking any narcotic pain medications. He is currently being seen and examined by Dr. Ulrich in infectious disease. Patient will most likely need PICC line placement with outpatient antibiotic therapy. Physical Exam: Patient is awake, alert, and oriented 3 Vital signs stable Good chest excursion with deep inspiration and expiration Abdomen soft nontender No signs or symptoms of DVT; no calf pain Dressing over the left knee is clean, dry, intact No active drainage or evidence of infection over the left knee Ice pack currently attacked her left knee Active range of motion left lower extremity including dorsiflexion and plantar flexion without significant difficulty Neurovascularly intact left lower extremity No significant pain with palpation over the left knee Pertinent studies: Preliminary Gram stain and culture of the left knee resulted on 06/23/2018: Presumptive staph aureus Anaerobic wound culture resulted on 06/23/2018: Culture and progress Assessment: Status post arthroscopic irrigation and debridement of left knee Septic arthritis left knee Left knee pain As her arthritis left knee History of hemorrhagic telangiectasia Plan: 1. Patient has had significant improvement of his left knee pain postoperatively after undergoing arthroscopic irrigation debridement of the left knee for septic joint arthritis yesterday, 06/23/2018. We'll continue conservative treatment at this time. Patient may continue to ambulate on the left lower extremity to tolerance. He is encouraged to continue with elevation and ice over the left knee for comfort support as needed. Patient is clear for discharge from an orthopedic standpoint. He will continue be followed by Dr. Ulrich in infectious disease who is most likely landing for PICC line placement for outpatient antibiotics prior to discharge. 2. Patient will continue to be followed by medicine; continue with IV antibiotics as prescribed 3. Patient will continue be followed by Dr. Ulrich in infectious disease who will most likely plan for PICC line placement prior to discharge 4. We'll continue follow patient closely 5. Patient will plan to follow-up with Dr. Eligio Rollins in the outpatient setting for further treatment and evaluation approximate 7-10 days
--- NOTE | 2018-06-24 13:26 | P.PN ---
Subjective Progress Note Date: 06/24/18 57 yo M with past medical history of Bmutf-Zufha-Uxeqt syndrome presented to the ED w/ c/o gradually worsening L knee pain and swelling for 4 days, which started spontaneously. Patient denied any history of trauma, fever, chills, or night sweats. The patient further denied any rashes, dysuria, chest pain, shortness of breath, abdominal pain, diarrhea, hematuria, urinary urgency, headache, visual changes, or any other complaints. The patient was admitted to the inpatient unit for further management of suspected septic arthritis in the setting of fever of 101.4. Multiple arthrocentesis or attempted in the ED but were unsuccessful. The patient was started on IV antibiotics and the following morning had a successful arthrocentesis by orthopedic surgery service. The patient underwent a left knee MRI which showed complex tear of the posterior horn of medial meniscus and a horizontal tear of the anterior horn of medial meniscus with edema on the medial aspect of the knee joint space consistent with old bruise. It also showed knee joint effusion and extensive synovial enhancement suspicious for septic arthritis. The patient underwent an arthroscopic irrigation the following morning. Aspirate from the knee grew staphylococcal aureus. Infectious disease was consulted and recommended 42 days of outpatient IV antibiotics. Patient was seen and examined at the bedside. He was seated in chair comfortably. He notes that his left knee pain has improved significantly though he continues to have difficulty with ambulation. He otherwise denied any fever, chills, nausea, vomiting, chest pain, or shortness of breath. Objective - Vital Signs Vital signs: Vital Signs Temp 98.8 F 06/24/18 00:11 Pulse 68 06/24/18 00:11 Resp 16 06/24/18 00:11 BP 126/73 06/24/18 00:11 Pulse Ox 97 06/24/18 00:11 Intake & Output 06/23/18 06/24/18 06/24/18 18:59 06:59 18:59 Intake Total 1965 240 Output Total 201 200 Balance 1764 -200 240 Intake: IV 1001 Intake, IV Titration 484 Amount Sodium Chloride 0.9% 1, 140 000 ml @ 70 mls/hr IV . [id number] ANA Rx#:[id number] Vancomycin 1,750 mg In 344 Sodium Chloride 0.9% 500 ml @ 167 mls/hr IVPB Q8H ANA Rx#:[id number] Oral 480 240 Output: Urine 200 200 Estimated Blood Loss 1 Other: # Voids 1 - Exam General: Non-toxic, in no acute distress HEENT: NC/AT, anicteric sclerae, moist conjunctiva, no lid-lag, PERRLA, oropharynx clear, no erythema, exudates Cardiovascular: S1/S2 wnl, no murmurs, rubs, or gallops Lungs: Clear to auscultation, normal respiratory effort, no accessory muscle use Abdominal: Soft, nontender, non-distended, no guarding, rebound, or rigidity, normoactive bowel sounds Skin: Warm, dry, small telangiectasis of oral mucosa, lips, and on hands josi Extremities: L knee w/ KIM bandage, clean and dry dressing Psychiatric: Alert and oriented to person, place and time, appropriate affect, Intact judgment Neuro: CN II-XII grossly intact, no focal motor deficits - Labs CBC & Chem 7: 06/24/18 06:39 06/24/18 06:39 Labs: Abnormal Lab Results - Last 24 Hours (Table) 06/24/18 06/24/18 06/24/18 Range/Units 06:39 06:39 06:39 RBC 3.59 L (4.30-5.90) m/uL Hgb 7.7 L (13.0-17.5) gm/dL Hct 25.6 L (39.0-53.0) % MCV 71.4 L (80.0-100.0) fL MCH 21.6 L (25.0-35.0) pg MCHC 30.2 L (31.0-37.0) g/dL ESR 79 H (0-15) mm/hr Creatinine 0.51 L (0.66-1.25) mg/dL Glucose 127 H (74-99) mg/dL C-Reactive Protein 175.4 H (<10.0) mg/L Prealbumin <5.0 L (18.0-42.0) mg/dL Microbiology - Last 24 Hours (Table) 06/23/18 09:02 Gram Stain - Preliminary Knee - Left Wound Culture - Preliminary Presumptive Staph aureus 06/20/18 21:30 Blood Culture - Preliminary Blood No Growth after 72 hours 06/21/18 19:10 Blood Culture - Preliminary Blood No Growth after 48 hours 06/21/18 18:21 Blood Culture - Preliminary Blood No Growth after 48 hours 06/23/18 09:02 Anaerobic Culture - Preliminary Knee - Left 06/21/18 09:45 Gram Stain - Preliminary Knee - Left Body Fluid Culture - Preliminary Presumptive Staph aureus 06/21/18 00:33 Gram Stain - Preliminary Knee - Left Body Fluid Culture - Preliminary Presumptive Staph aureus Assessment and Plan Plan: L knee septic arthritis - S/p arthroscopic irrigation and debridement - Knee MRI: Complex tear of post horn of medial meniscus, horizontal tear ant horn medial meniscus, edema at medial aspect consistent w/ bone bruise, w/ synovial enhancement consistent w/ possible septic arthritis. - C/w Vancomycin 1750 mg q8h for now. Cultures positive for staph aureus - ID and Ortho recs appreciated - Pt will need outpatient IV abxs Hereditary Hemorrhagic Telangiectasias (Bgyfu-Inras-Ngncm Syndrome) - Patient was diagnosed by outpatient physician - Pt has the characteristic small telangiectasias of oral mucosa, lips, and on hands - He has chronic multiple episodes of epistaxis and mild blood loss anemia for which he takes Iron supplementation as outpatient - Will hold Heparin for now due to Epistaxis Microcytic anemia - Likely due to chronic bleeding from HHT - Will resume Ferrous sulfate PO DVT//GI proph - IPCDs - No indication for GI prophy.
[2018-06-24] MEDS: KETOROLAC 30 MG/ML 1 ML VIAL IVP SCH ×2 (18:20→23:35)
[2018-06-24 19:45] VITALS: RESP 16
--- NOTE | 2018-06-25 00:59 | P.PN ---
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 He does not have history of prior difficulty with left knee and does not have a known history of gout or other significant joint troubles. 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 The patient noticed that the knee became considerably more painful. It had difficulty with ambulation in counseling presented to the emergency center. Imaging revealed evidence of swelling. He was seen by orthopedics aspiration was obtained and MRI has also been obtained. Evidence of significant synovial swelling to the knee was noted and concerns to a septic arthritis. Apparently will be going to the operating room in the morning for surgical intervention. Patient does not recall significant fevers chills or rigors. 06/23/2018 the patient is now status post the arthroscopic evaluation and debridement of the left knee. Aspirate from the knee is starting to show evidence of a staphylococcal infection. Patient is aware of his diagnosis of septic arthritis. 06/24/2018 the patient is having further improvement of his status. He's been able to get up with therapist and ambulate. Pain is improving. Objective - Vital Signs Vital signs: Vital Signs Temp 98.4 F 06/24/18 23:26 Pulse 67 06/24/18 23:26 Resp 16 06/24/18 23:26 BP 145/84 06/24/18 23:26 Pulse Ox 97 06/24/18 23:26 Intake & Output 06/24/18 06/24/18 06/25/18 06:59 18:59 06:59 Intake Total 2920 Output Total 200 Balance -200 2920 Intake: Intake, IV Titration 1060 Amount Sodium Chloride 0.9% 1, 560 000 ml @ 70 mls/hr IV . [id number] ANA Rx#:[id number] Vancomycin 1,750 mg In 500 Sodium Chloride 0.9% 500 ml @ 167 mls/hr IVPB Q8H ANA Rx#:[id number] Oral 1860 Output: Urine 200 Other: # Voids 1 - Exam 57-year-old male of appropriate build is not in bryan distress HEENT: Anicteric conjunctiva are pink and moist nasal mucosa grossly intact without significant lesions, there is no thrush. Dentition is somewhat poor for age Neck: The neck is supple without significant lymphadenopathy or thyromegaly. Lungs: Good bilateral air entry without significant crackles or wheezing. There is no significant bronchial sounds. There is no egophony or dullness. Heart: Regular rate and rhythm with an audible S1-S2, no S3 no S4. There is no significant murmur click or rub, PMI was nondisplaced. Abdomen: Positive bowel sounds soft and nontender without palpable masses or organomegaly. There was no guarding or rebound. Extremities: The upper extremities have excellent pulses they are symmetric, no significant petechiae or telangiectasia. The right arm shows evidence of the prior surgical intervention for his fracture, evidence of interossei muscle wasting especially between the thumb and index finger. No splinter hemorrhages were noted. Lower extremities reveal evidence of no significant chronic edema. No significant open wounds are seen. The left knee has evidence of the surgical dressing in place. There is no ascending erythema. There is no severe lymphadenopathy into the left inguinal area. No other abnormal lymph nodes are seen. Neuro: Awake alert oriented to person place and time. There are no acute new gross focal sensory motor deficits. - Labs CBC & Chem 7: 06/24/18 06:39 06/24/18 06:39 Labs: Abnormal Lab Results - Last 24 Hours (Table) 06/24/18 06/24/18 06/24/18 Range/Units 06:39 06:39 06:39 RBC 3.59 L (4.30-5.90) m/uL Hgb 7.7 L (13.0-17.5) gm/dL Hct 25.6 L (39.0-53.0) % MCV 71.4 L (80.0-100.0) fL MCH 21.6 L (25.0-35.0) pg MCHC 30.2 L (31.0-37.0) g/dL ESR 79 H (0-15) mm/hr Creatinine 0.51 L (0.66-1.25) mg/dL Glucose 127 H (74-99) mg/dL C-Reactive Protein 175.4 H (<10.0) mg/L Prealbumin <5.0 L (18.0-42.0) mg/dL Microbiology - Last 24 Hours (Table) 06/20/18 21:30 Blood Culture - Preliminary Blood No Growth after 96 hours 06/21/18 19:10 Blood Culture - Preliminary Blood No Growth after 72 hours 06/21/18 18:21 Blood Culture - Preliminary Blood No Growth after 72 hours 06/21/18 09:45 Gram Stain - Final Knee - Left Body Fluid Culture - Final Staph aureus 06/21/18 00:33 Gram Stain - Final Knee - Left Body Fluid Culture - Final Staph aureus 06/23/18 09:02 Gram Stain - Preliminary Knee - Left Wound Culture - Preliminary Presumptive Staph aureus Laboratory Results WBC 5.2 k/uL (3.8-10.6) 06/24/18 06:39 RBC 3.59 m/uL (4.30-5.90) L 06/24/18 06:39 Hgb 7.7 gm/dL (13.0-17.5) L 06/24/18 06:39 Hct 25.6 % (39.0-53.0) L 06/24/18 06:39 MCV 71.4 fL (80.0-100.0) L 06/24/18 06:39 MCH 21.6 pg (25.0-35.0) L 06/24/18 06:39 MCHC 30.2 g/dL (31.0-37.0) L 06/24/18 06:39 RDW 13.8 % (11.5-15.5) 06/24/18 06:39 Plt Count 229 k/uL (150-450) 06/24/18 06:39 Neutrophils % 83 % 06/22/18 06:05 Lymphocytes % 6 % 06/22/18 06:05 Monocytes % 9 % 06/22/18 06:05 Eosinophils % 1 % 06/22/18 06:05 Basophils % 0 % 06/22/18 06:05 Neutrophils # 4.5 k/uL (1.3-7.7) 06/22/18 06:05 Lymphocytes # 0.3 k/uL (1.0-4.8) L 06/22/18 06:05 Monocytes # 0.5 k/uL (0-1.0) 06/22/18 06:05 Eosinophils # 0.0 k/uL (0-0.7) 06/22/18 06:05 Basophils # 0.0 k/uL (0-0.2) 06/22/18 06:05 Hypochromasia Marked 06/24/18 06:39 Microcytosis Slight 06/24/18 06:39 ESR 79 mm/hr (0-15) H 06/24/18 06:39 Sodium 140 mmol/L (137-145) 06/24/18 06:39 Potassium 4.1 mmol/L (3.5-5.1) 06/24/18 06:39 Chloride 105 mmol/L (98-107) 06/24/18 06:39 Carbon Dioxide 30 mmol/L (22-30) 06/24/18 06:39 Anion Gap 5 mmol/L 06/24/18 06:39 BUN 15 mg/dL (9-20) 06/24/18 06:39 Creatinine 0.51 mg/dL (0.66-1.25) L 06/24/18 06:39 Est GFR (CKD-EPI)AfAm >90 (>60 ml/min/1.73 sqM) 06/24/18 06:39 Est GFR (CKD-EPI)NonAf >90 (>60 ml/min/1.73 sqM) 06/24/18 06:39 Glucose 127 mg/dL (74-99) H 06/24/18 06:39 Calcium 8.5 mg/dL (8.4-10.2) 06/24/18 06:39 Total Bilirubin 1.6 mg/dL (0.2-1.3) H 06/20/18 21:30 AST 99 U/L (17-59) H 06/20/18 21:30 ALT 34 U/L (21-72) 06/20/18 21:30 Alkaline Phosphatase 163 U/L (38-126) H 06/20/18 21:30 C-Reactive Protein 175.4 mg/L (<10.0) H 06/24/18 06:39 Total Protein 6.7 g/dL (6.3-8.2) 06/20/18 21:30 Albumin 3.6 g/dL (3.5-5.0) 06/20/18 21:30 Prealbumin <5.0 mg/dL (18.0-42.0) L 06/24/18 06:39 Fluid Source Synovial 06/21/18 09:45 Fluid Color Yellow 06/21/18 09:45 Fluid Appearance Cloudy 06/21/18 09:45 Fluid RBC 31820 /uL 06/21/18 09:45 Fluid Nucleated Cells 6200 /uL 06/21/18 09:45 Fluid Polynuclear WBCs 83 % 06/21/18 09:45 Fluid Mononuclear WBCs 17 % 06/21/18 09:45 Synovial Source Left Knee 06/21/18 09:45 Synovial Crystals 06/21/18 09:45 Vancomycin Trough 15.7 ug/mL 06/24/18 01:29 Blood Type A Positive 06/22/18 19:56 Blood Type Confirm A Positive 06/22/18 23:34 Blood Type Recheck CABO Indicated 06/22/18 19:56 Antibody Screen NEGATIVE 06/22/18 19:56 Spec Expiration Date 06/25/2018 - 5707 06/22/18 19:56 Microbiology 06/20/18 21:30 Blood Blood Culture - Preliminary No Growth after 96 hours 06/21/18 19:10 Blood Blood Culture - Preliminary No Growth after 72 hours 06/21/18 18:21 Blood Blood Culture - Preliminary No Growth after 72 hours 06/21/18 09:45 Knee - Left Gram Stain - Final 06/21/18 09:45 Knee - Left Body Fluid Culture - Final Staph aureus 06/21/18 00:33 Knee - Left Gram Stain - Final 06/21/18 00:33 Knee - Left Body Fluid Culture - Final Staph aureus 06/23/18 09:02 Knee - Left Gram Stain - Preliminary 06/23/18 09:02 Knee - Left Wound Culture - Preliminary Presumptive Staph aureus 06/23/18 09:02 Knee - Left Anaerobic Culture - Preliminary Assessment and Plan (1) Septic arthritis of knee, left Narrative/Plan: Pleasant 57-year-old male presents to hospital with increasing pain and swelling to his left knee. 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 No specific recent falls or penetrating injuries have occurred to the knee. The patient has been seeing orthopedics and aspiration showing evidence of the fluid from the knee with gram-positive cocci. Antibiotic therapy with vancomycin is being utilized currently and is appropriate we'll add in Ancef also pending further culture results. Plans for operative care in the morning have been noted. Multivitamin with zinc is added to the regimen to help with healing Will likely need an outpatient course of intravenous antibiotic therapy after discharge for a septic arthritis, final plans can be made once further culture results are available. Social work consult. 06/23/2018 reveals pleasant gentleman status post knee arthroscopic debridement of his left knee. Cultures revealing evidence of staph aureus only final culture results. If the blood cultures are negative the patient will require IV access placement and outpatient intravenous antibiotic therapy via the [facility] for 42 days regarding his septic arthritis. Pain control is adequate at this point in time continue multivitamin with zinc. Ambulation is as per the orthopedic service. 06/24/2018 the patient is aware of the significant infection to his knee and the need for intravenous antibiotic therapy. As the patient is starting to improve plans will be made once his blood cultures are negative. PICC line can be placed in the outpatient intravenous antibiotic therapy at the [facility] can be arranged. Current Visit: Yes Status: Acute Code(s): M00.9 - PYOGENIC ARTHRITIS, UNSPECIFIED SNOMED Code(s): 481310393
[2018-06-25] MEDS: SODIUM CHLORIDE 0.9% 1,000 ML IV SCH ×5 (02:11→22:16)
[2018-06-25] MEDS: KETOROLAC 30 MG/ML 1 ML VIAL IVP SCH ×4 (06:06→23:39)
[2018-06-25] MEDS: MULTIVITAMINS, THERA 1 EACH TAB PO SCH (07:21)
[2018-06-25 08:54] LABS: Anion Gap 4 mmol/L; Blood Urea Nitrogen 19 mg/dL (9-20); Calcium 8.1 mg/dL (8.4-10.2); Carbon Dioxide 30 mmol/L (22-30); Chloride 105 mmol/L (98-107); Glucose 104 mg/dL (74-99); Potassium 3.7 mmol/L (3.5-5.1); Sodium 139 mmol/L (137-145)
[2018-06-25] MEDS: ceFAZolin IN SWFI 2 GM/20 ML SYRINGE IVP SCH ×3 (10:34→23:39)
--- NOTE | 2018-06-25 11:11 | P.PN ---
Progress Note - Text Progress Note Date: 06/25/18 Patient is a pleasant 57-year-old male who is examined at bedside after undergoing left knee irrigation and debridement performed by Dr. Eligio Rollins 06/23/2018. Postoperatively he has had significant improvement of his symptoms. He is not currently experiencing any significant pain in the left knee. He does continue to have some swelling of the knee. His pain has been controlled with ice. He has been able to ambulate without significant difficulty. He is not taking any narcotic pain medications. He is currently being seen and examined by Dr. Ulrich in infectious disease. Blood cultures continued to be negative, patient we'll plan for PICC line placement with outpatient antibiotic therapy. Physical Exam: Patient is awake, alert, and oriented 3 Vital signs stable Good chest excursion with deep inspiration and expiration Abdomen soft nontender No signs or symptoms of DVT; no calf pain Incision over the left knee is clean, dry, intact No active drainage or evidence of infection over the left knee Evidence of swelling over the left knee Active range of motion left lower extremity including dorsiflexion and plantar flexion without significant difficulty Neurovascularly intact left lower extremity No significant pain with palpation over the left knee Pertinent studies: Preliminary Gram stain and culture of the left knee resulted on 06/23/2018: Presumptive staph aureus Anaerobic wound culture resulted on 06/23/2018: Culture and progress Blood culture: Preliminary results negative for growth over 72 hours Assessment: Status post arthroscopic irrigation and debridement of left knee Septic arthritis left knee Left knee pain As her arthritis left knee History of hemorrhagic telangiectasia Plan: 1. Patient has had significant improvement of his left knee pain postoperatively after undergoing arthroscopic irrigation debridement of the left knee for septic joint arthritis 06/23/2018. We'll continue conservative treatment at this time. Patient may continue to ambulate on the left lower extremity to tolerance. He is encouraged to continue with elevation and ice over the left knee for comfort support as needed. Patient is clear for discharge from an orthopedic standpoint. He will continue be followed by Dr. Ulrich in infectious disease who is planning for PICC line placement for outpatient antibiotics for 42 days if blood cultures are negative. Preliminary blood cultures have been negative for growth over 72 hours. 2. Patient will continue to be followed by medicine; continue with IV antibiotics as prescribed 3. Patient will continue be followed by Dr. Ulrich in infectious disease who will plan for PICC line placement prior to discharge 4. We'll continue follow patient closely 5. Patient will plan to follow-up with Dr. Eligio Rollins in the outpatient setting for further treatment and evaluation approximate 7-10 days
--- NOTE | 2018-06-25 13:17 | P.PN ---
Subjective 57 yo M with past medical history of Vphba-Kaski-Emqmu syndrome presented to the ED w/ c/o gradually worsening L knee pain and swelling for 4 days, which started spontaneously. Patient denied any history of trauma, fever, chills, or night sweats. The patient further denied any rashes, dysuria, chest pain, shortness of breath, abdominal pain, diarrhea, hematuria, urinary urgency, headache, visual changes, or any other complaints. The patient was admitted to the inpatient unit for further management of suspected septic arthritis in the setting of fever of 101.4. Multiple arthrocentesis or attempted in the ED but were unsuccessful. The patient was started on IV antibiotics and the following morning had a successful arthrocentesis by orthopedic surgery service. The patient underwent a left knee MRI which showed complex tear of the posterior horn of medial meniscus and a horizontal tear of the anterior horn of medial meniscus with edema on the medial aspect of the knee joint space consistent with old bruise. It also showed knee joint effusion and extensive synovial enhancement suspicious for septic arthritis. The patient underwent an arthroscopic irrigation the following morning. Aspirate from the knee grew staphylococcal aureus. Infectious disease was consulted and recommended 42 days of outpatient IV antibiotics. Patient was seen and examined at the bedside. The patient notes continued improvement in his pain. He is ambulating with walker. He denied any further episodes of fever, chills, nausea, vomiting, chest pain, or shortness of breath. He also denied any further episodes of epistaxis or GI bleeding. Objective - Vital Signs Vital signs: Vital Signs Temp 98.4 F 06/24/18 23:26 Pulse 67 06/24/18 23:26 Resp 16 06/24/18 23:26 BP 145/84 06/24/18 23:26 Pulse Ox 97 06/24/18 23:26 Intake & Output 06/24/18 06/25/18 06/25/18 18:59 06:59 18:59 Intake Total 2920 140 220 Output Total 400 Balance 2920 140 -180 Intake: Intake, IV Titration 1060 140 Amount Sodium Chloride 0.9% 1, 560 140 000 ml @ 70 mls/hr IV . [id number] ANA Rx#:[id number] Vancomycin 1,750 mg In 500 Sodium Chloride 0.9% 500 ml @ 167 mls/hr IVPB Q8H ANA Rx#:[id number] Oral 1860 220 Output: Urine 400 Other: # Voids 1 - Exam General: Non-toxic, in no acute distress HEENT: NC/AT, anicteric sclerae, moist conjunctiva, no lid-lag, PERRLA, oropharynx clear, no erythema, exudates Cardiovascular: S1/S2 wnl, no murmurs, rubs, or gallops Lungs: Clear to auscultation, normal respiratory effort, no accessory muscle use Abdominal: Soft, nontender, non-distended, no guarding, rebound, or rigidity, normoactive bowel sounds Skin: Warm, dry, small telangiectasis of oral mucosa, lips, and on hands josi Extremities: L knee with 2 2-3 cm incisions, clean and healing, mild swelling of left lower extremity with no erythema or warmth, minimal tenderness of left knee Psychiatric: Alert and oriented to person, place and time, appropriate affect, Intact judgment Neuro: CN II-XII grossly intact, no focal motor deficits - Labs CBC & Chem 7: 06/24/18 06:39 06/25/18 07:52 Labs: Abnormal Lab Results - Last 24 Hours (Table) 06/25/18 Range/Units 07:52 Creatinine 0.53 L (0.66-1.25) mg/dL Glucose 104 H (74-99) mg/dL Calcium 8.1 L (8.4-10.2) mg/dL Microbiology - Last 24 Hours (Table) 06/23/18 09:02 Gram Stain - Final Knee - Left Wound Culture - Final Staphylococcus aureus 06/23/18 09:02 Anaerobic Culture - Preliminary Knee - Left 06/20/18 21:30 Blood Culture - Preliminary Blood No Growth after 96 hours 06/21/18 19:10 Blood Culture - Preliminary Blood No Growth after 72 hours 06/21/18 18:21 Blood Culture - Preliminary Blood No Growth after 72 hours 06/21/18 09:45 Gram Stain - Final Knee - Left Body Fluid Culture - Final Staph aureus 06/21/18 00:33 Gram Stain - Final Knee - Left Body Fluid Culture - Final Staph aureus Assessment and Plan Plan: L knee septic arthritis - S/p arthroscopic irrigation and debridement - Knee MRI: Complex tear of post horn of medial meniscus, horizontal tear ant horn medial meniscus, edema at medial aspect consistent w/ bone bruise, w/ synovial enhancement consistent w/ possible septic arthritis. - Continue with cefazolin IV for now. 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
[2018-06-26] MEDS: KETOROLAC 30 MG/ML 1 ML VIAL IVP SCH ×2 (05:28→13:56)
[2018-06-26] MEDS: SODIUM CHLORIDE 0.9% 1,000 ML IV SCH ×3 (05:42→13:56)
[2018-06-26 07:08] VITALS: PULSE 61
[2018-06-26 07:09] LABS: HCT 25.3 % (39.0-53.0); HGB 7.2 gm/dL (13.0-17.5); Hypochromasia Marked; MCH 20.2 pg (25.0-35.0); MCHC 28.5 g/dL (31.0-37.0); Mean Platelet Volume 7.1; Microcytosis Moderate; Platelet Count 250 k/uL (150-450); RBC 3.57 m/uL (4.30-5.90); RDW 14.3 % (11.5-15.5); WBC 3.2 k/uL (3.8-10.6)
[2018-06-26 07:28] LABS: Anion Gap 4 mmol/L; Blood Urea Nitrogen 13 mg/dL (9-20); Calcium 8.2 mg/dL (8.4-10.2); Carbon Dioxide 29 mmol/L (22-30); Chloride 106 mmol/L (98-107); Glucose 96 mg/dL (74-99); Potassium 3.8 mmol/L (3.5-5.1); Sodium 139 mmol/L (137-145)
--- NOTE | 2018-06-26 09:13 | P.PN ---
Subjective Progress Note Date: 06/26/18 This is a 57-year-old male who is status post left knee arthroscopic irrigation and debridement. This is postoperative day #3. Patient states that his pain is much improved. Patient states that he continues to ice the left knee. Patient denies any new complaints today. Patient denies any fever/chills, numbness, weakness, tingling, abdominal pain, shortness of breath or chest pain. Objective - Vital Signs Vital signs: Vital Signs Temp 98.7 F 06/26/18 07:07 Pulse 61 06/26/18 07:07 Resp 16 06/26/18 07:07 BP 148/84 06/26/18 07:07 Pulse Ox 99 06/26/18 07:07 Intake & Output 06/25/18 06/26/18 06/26/18 18:59 06:59 18:59 Intake Total 220 3040 Output Total 400 Balance -180 3040 Intake: Intake, IV Titration 2040 Amount Sodium Chloride 0.9% 1, 1540 000 ml @ 70 mls/hr IV . [id number] ANA Rx#:[id number] Vancomycin 1,750 mg In 500 Sodium Chloride 0.9% 500 ml @ 167 mls/hr IVPB Q8H ANA Rx#:[id number] Oral 220 1000 Output: Urine 400 Other: # Voids 2 1 - Exam On exam patient is lying comfortably in bed in no acute distress. Patient is alert and oriented 3. There is minimal swelling of the left knee. Patient has good range of motion of the left knee. Calf is soft and nontender to palpation. Sensation is intact. Skin is intact. Neurovascular status and circulatory status are intact. - Labs CBC & Chem 7: 06/26/18 06:46 06/26/18 06:46 Labs: Abnormal Lab Results - Last 24 Hours (Table) 06/26/18 06/26/18 Range/Units 06:46 06:46 WBC 3.2 L (3.8-10.6) k/uL RBC 3.57 L (4.30-5.90) m/uL Hgb 7.2 L (13.0-17.5) gm/dL Hct 25.3 L (39.0-53.0) % MCV 71.0 L (80.0-100.0) fL MCH 20.2 L (25.0-35.0) pg MCHC 28.5 L (31.0-37.0) g/dL Creatinine 0.48 L (0.66-1.25) mg/dL Calcium 8.2 L (8.4-10.2) mg/dL Microbiology - Last 24 Hours (Table) 06/20/18 21:30 Blood Culture - Preliminary Blood No Growth after 120 hours 06/21/18 19:10 Blood Culture - Preliminary Blood No Growth after 96 hours 06/21/18 18:21 Blood Culture - Preliminary Blood No Growth after 96 hours 06/23/18 09:02 Gram Stain - Final Knee - Left Wound Culture - Final Staphylococcus aureus 06/23/18 09:02 Anaerobic Culture - Preliminary Knee - Left Assessment and Plan (1) Effusion, left knee Current Visit: Yes Status: Acute Code(s): M25.462 - EFFUSION, LEFT KNEE SNOMED Code(s): 014809282 (2) Left knee pain Current Visit: Yes Status: Acute Code(s): M25.562 - PAIN IN LEFT KNEE SNOMED Code(s): 87606588 (3) Osteoarthritis of left knee Current Visit: Yes Status: Acute Code(s): M17.12 - UNILATERAL PRIMARY OSTEOARTHRITIS, LEFT KNEE SNOMED Code(s): 597447784498395 (4) Patellar bursitis of left knee Current Visit: Yes Status: Acute Code(s): M70.52 - OTHER BURSITIS OF KNEE, LEFT KNEE SNOMED Code(s): 7051410533448967 (5) Septic arthritis of knee, left Current Visit: Yes Status: Acute Code(s): M00.9 - PYOGENIC ARTHRITIS, UNSPECIFIED SNOMED Code(s): 924436604 Plan: An MRI of the left knee dated 06/21/2018 shows: There is a complex tear posterior horn medial meniscus. There is a horizontal tear anterior horn medial meniscus. There is edema on the medial aspect of the knee joint space and involving mainly the tibial condyle and consistent with bone bruise. No fracture line seen. Knee joint effusion with extensive synovial enhancement consistent with inflammatory process. This could be septic arthritis. Subcutaneous edema consistent with cellulitis. 1. Weightbearing as tolerated to the left lower extremity. 2. Continue to rest, ice and elevate the left knee. 3. Appreciate input from internal medicine. 4. IV antibiotics per infectious disease. 5. Patient to receive a PICC line today pending negative blood cultures. 6. Patient may follow up as an outpatient. Otherwise, will continue to follow during inpatient stay.
[2018-06-26] MEDS ORDERED: cefTRIAXone 2,000 MG in SODIUM CHLORIDE 0.9% 100 ML IVPB SCH (09:45)
[2018-06-26] MEDS: ceFAZolin IN SWFI 2 GM/20 ML SYRINGE IVP SCH (10:28)
--- NOTE | 2018-06-26 13:13 | P.DS ---
Providers Date of admission: 06/22/18 11:08 Expected date of discharge: 06/26/18 Attending physician: Caden Diaz MD Consults: 06/21/18 00:39 Consult Physician Routine Consulting Provider: Eligio Rollins Consult Reason/Comments: Septic Arthritis Do you want consulting provider notified?: Yes 06/21/18 16:44 Consult Physician Urgent Consulting Provider: Huey Ulrich Consult Reason/Comments: Septic arthritis Do you want consulting provider notified?: Yes Primary care physician: Stated None Hospital Course: 57 yo M with past medical history of Xbhqu-Ezxuu-Fiqox syndrome presented to the ED w/ c/o gradually worsening L knee pain and swelling for 4 days, which started spontaneously. Patient denied any history of trauma, fever, chills, or night sweats. The patient further denied any rashes, dysuria, chest pain, shortness of breath, abdominal pain, diarrhea, hematuria, urinary urgency, headache, visual changes, or any other complaints. The patient was admitted to the inpatient unit for further management of suspected septic arthritis in the setting of fever of 101.4. Multiple arthrocentesis or attempted in the ED but were unsuccessful. The patient was started on IV antibiotics and the following morning had a successful arthrocentesis by orthopedic surgery service. The patient underwent a left knee MRI which showed complex tear of the posterior horn of medial meniscus and a horizontal tear of the anterior horn of medial meniscus with edema on the medial aspect of the knee joint space consistent with bone bruise. It also showed knee joint effusion and extensive synovial enhancement suspicious for septic arthritis. The patient underwent an arthroscopic irrigation the following morning. Aspirate from the knee grew staphylococcal aureus. Infectious disease was consulted and recommended continued course of outpatient IV antibiotics. The patient underwent PICC line placement and was scheduled to f/u at [facility] to undergo IV abx therapy w / Ceftriaxone for 42 days. While inpatient, he was able to ambulate with walker. He is presently stable, and ready for discharge to home. Physical Examination General: Non-toxic, in no acute distress HEENT: NC/AT, anicteric sclerae, moist conjunctiva, no lid-lag, PERRLA, oropharynx clear, no erythema, exudates Cardiovascular: S1/S2 wnl, no murmurs, rubs, or gallops Lungs: Clear to auscultation, normal respiratory effort, no accessory muscle use Abdominal: Soft, nontender, non-distended, no guarding, rebound, or rigidity, normoactive bowel sounds Skin: Warm, dry, small telangiectasis of oral mucosa, lips, and on hands josi Extremities: L knee with 2 2-3 cm incisions, clean and healing, minimal swelling of left lower extremity with no erythema or warmth, minimal tenderness of left knee Psychiatric: Alert and oriented to person, place and time, appropriate affect, Intact judgment Neuro: CN II-XII grossly intact, no focal motor deficits Discharge diagnosis: L knee septic arthritis due to staph aureus, Hereditary Hemorrhagic telangiectasias, Microcytic anemia due to chronic blood loss A total of 60 minutes of time were spent preparing this complex discharge summary. Pertinent Studies: Left knee MRI: Complex tear of posterior horn of medial meniscus, edema at the medial aspect consistent with bone bruise, with synovial enhancement consistent with possible septic arthritis Procedures: Arthroscopic irrigation of L knee for septic arthritis Patient Condition at Discharge: Stable Plan - Discharge Summary Discharge Rx Participant: Yes New Discharge Prescriptions: New cefTRIAXone [Rocephin] 2,000 mg IVPB Q24HR #42 vial Continue Ferrous Sulfate [Iron] 325 mg PO DAILY Discharge Medication List Ferrous Sulfate [Iron] 325 mg PO DAILY 06/20/18 [History] cefTRIAXone [Rocephin] 2,000 mg IVPB Q24HR #42 vial 06/26/18 [Rx] Follow up Appointment(s)/Referral(s): Huey Ulrich MD [STAFF PHYSICIAN] - 3 Weeks None,Stated [Primary Care Provider] - 1-2 days Eligio Rollins DO [Doctor of Osteopathic Medicine] - 10 Days Ambulatory/Diagnostic Orders: Basic Metabolic Panel [LAB.AMB] Location: None Selected Complete Blood Count w/diff [LAB.AMB] Location: None Selected C Reactive Protein [LAB.AMB] Location: None Selected Erythrocyte Sedimentation Rate [LAB.AMB] Location: None Selected Activity/Diet/Wound Care/Special Instructions: Weightbearing as tolerated left lower extremity. Rest ice, compression and elevation. Sutures to be removed in 7-10 days. Please follow up with [facility]. Please call with any questions or concerns. [phone]. [facility]: 3rd floor - outpatient IV antibiotics - 06/27/18 at 9:45 a.m. - [phone] Discharge Disposition: HOME SELF-CARE
--- NOTE | 2018-06-26 13:25 | IR ---
EXAMINATION TYPE: IR cvc insert >=5 years DATE OF EXAM: 06/26/2018 COMPARISON: NONE CLINICAL HISTORY: Infection Needs long-term intravenous access for antibiotics. PROCEDURE: After informed consent, the skin overlying the left brachial vein was localized with ultrasound and n oted to be compressible and patent. An ultrasound image was obtained and submitted on the patient's chart. The overlying skin was prepped and draped and Lidocaine was used for local anesthesia. A ski n rajendra was made with a scalpel. Access was gained to the vein under ultrasound guidance with a 21 ga uge needle and a 0.018 inch wire was advanced. Access site was dilated with Peel-Away sheath and cat heter tailored to the appropriate length and advanced such that the distal tip is at the cavoatrial j unction. Spot image was obtained verifying placement. Catheter was fixed to the skin and a sterile dressing was placed following hemostasis. Catheter was aspirated and flushed with saline. Patient w as discharged in stable condition without complication. Maximal barrier technique is utilized. Ultra sound image is documented on the chart. Ultrasound used with sterile technique. Fluoro time and fluoroscopic images submitted to document procedure: 0.2 minutes fluoroscopy time, 49 intraoperative C-arm images document the procedure IMPRESSION: STATUS POST ULTRASOUND AND FLUOROSCOPIC GUIDED PICC LINE PLACEMENT, READY FOR USE. THIS PROCEDURE WAS PERFORMED BY THE UNDERSIGNED.
[2018-06-26] MEDS: MULTIVITAMINS, THERA 1 EACH TAB PO SCH (13:56)
[2018-06-26 14:09] VITALS: BP 149/77; TEMP 98.4
--- NOTE | 2018-06-26 23:09 | P.PN ---
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 He does not have history of prior difficulty with left knee and does not have a known history of gout or other significant joint troubles. 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 The patient noticed that the knee became considerably more painful. It had difficulty with ambulation in counseling presented to the emergency center. Imaging revealed evidence of swelling. He was seen by orthopedics aspiration was obtained and MRI has also been obtained. Evidence of significant synovial swelling to the knee was noted and concerns to a septic arthritis. Apparently will be going to the operating room in the morning for surgical intervention. Patient does not recall significant fevers chills or rigors. 06/23/2018 the patient is now status post the arthroscopic evaluation and debridement of the left knee. Aspirate from the knee is starting to show evidence of a staphylococcal infection. Patient is aware of his diagnosis of septic arthritis. 06/24/2018 the patient is having further improvement of his status. He's been able to get up with therapist and ambulate. Pain is improving. 06/26/2018 patient continues to improve status post arthroscopic debridement of the knee. MSSA has been isolated and plans for outpatient infusion are in process. Objective - Vital Signs Vital signs: Vital Signs Temp 98.4 F 06/26/18 14:08 Pulse 61 06/26/18 07:07 Resp 16 06/26/18 14:08 BP 149/77 06/26/18 14:08 Pulse Ox 97 06/26/18 14:08 Intake & Output 06/26/18 06/26/18 06/27/18 06:59 18:59 06:59 Intake Total 3040 Balance 3040 Intake: Intake, IV Titration 2040 Amount Sodium Chloride 0.9% 1, 1540 000 ml @ 70 mls/hr IV . [id number] ANA Rx#:[id number] Vancomycin 1,750 mg In 500 Sodium Chloride 0.9% 500 ml @ 167 mls/hr IVPB Q8H ANA Rx#:[id number] Oral 1000 Other: # Voids 1 1 - Exam 57-year-old male of appropriate build is not in bryan distress HEENT: Anicteric conjunctiva are pink and moist nasal mucosa grossly intact without significant lesions, there is no thrush. Dentition is somewhat poor for age Neck: The neck is supple without significant lymphadenopathy or thyromegaly. Lungs: Good bilateral air entry without significant crackles or wheezing. There is no significant bronchial sounds. There is no egophony or dullness. Heart: Regular rate and rhythm with an audible S1-S2, no S3 no S4. There is no significant murmur click or rub, PMI was nondisplaced. Abdomen: Positive bowel sounds soft and nontender without palpable masses or organomegaly. There was no guarding or rebound. Extremities: The upper extremities have excellent pulses they are symmetric, no significant petechiae or telangiectasia. The right arm shows evidence of the prior surgical intervention for his fracture, evidence of interossei muscle wasting especially between the thumb and index finger. No splinter hemorrhages were noted. Lower extremities reveal evidence of no significant chronic edema. No significant open wounds are seen. The left knee has evidence further improvement since last evaluation, no erythema no expressible drainage is up with walker and crutches. There is no ascending erythema. There is no severe lymphadenopathy into the left inguinal area. No other abnormal lymph nodes are seen. Neuro: Awake alert oriented to person place and time. There are no acute new gross focal sensory motor deficits. - Labs CBC & Chem 7: 06/26/18 06:46 06/26/18 06:46 Labs: Abnormal Lab Results - Last 24 Hours (Table) 06/26/18 06/26/18 Range/Units 06:46 06:46 WBC 3.2 L (3.8-10.6) k/uL RBC 3.57 L (4.30-5.90) m/uL Hgb 7.2 L (13.0-17.5) gm/dL Hct 25.3 L (39.0-53.0) % MCV 71.0 L (80.0-100.0) fL MCH 20.2 L (25.0-35.0) pg MCHC 28.5 L (31.0-37.0) g/dL Creatinine 0.48 L (0.66-1.25) mg/dL Calcium 8.2 L (8.4-10.2) mg/dL Microbiology - Last 24 Hours (Table) 06/21/18 19:10 Blood Culture - Preliminary Blood No Growth after 120 hours 06/21/18 18:21 Blood Culture - Preliminary Blood No Growth after 120 hours 06/21/18 09:45 Gram Stain - Final Knee - Left Body Fluid Culture - Final Staph aureus 06/20/18 21:30 Blood Culture - Preliminary Blood No Growth after 120 hours Laboratory Results WBC 3.2 k/uL (3.8-10.6) L 06/26/18 06:46 RBC 3.57 m/uL (4.30-5.90) L 06/26/18 06:46 Hgb 7.2 gm/dL (13.0-17.5) L 06/26/18 06:46 Hct 25.3 % (39.0-53.0) L 06/26/18 06:46 MCV 71.0 fL (80.0-100.0) L 06/26/18 06:46 MCH 20.2 pg (25.0-35.0) L 06/26/18 06:46 MCHC 28.5 g/dL (31.0-37.0) L 06/26/18 06:46 RDW 14.3 % (11.5-15.5) 06/26/18 06:46 Plt Count 250 k/uL (150-450) 06/26/18 06:46 Neutrophils % 83 % 06/22/18 06:05 Lymphocytes % 6 % 06/22/18 06:05 Monocytes % 9 % 06/22/18 06:05 Eosinophils % 1 % 06/22/18 06:05 Basophils % 0 % 06/22/18 06:05 Neutrophils # 4.5 k/uL (1.3-7.7) 06/22/18 06:05 Lymphocytes # 0.3 k/uL (1.0-4.8) L 06/22/18 06:05 Monocytes # 0.5 k/uL (0-1.0) 06/22/18 06:05 Eosinophils # 0.0 k/uL (0-0.7) 06/22/18 06:05 Basophils # 0.0 k/uL (0-0.2) 06/22/18 06:05 Hypochromasia Marked 06/26/18 06:46 Microcytosis Moderate 06/26/18 06:46 ESR 79 mm/hr (0-15) H 06/24/18 06:39 Sodium 139 mmol/L (137-145) 06/26/18 06:46 Potassium 3.8 mmol/L (3.5-5.1) 06/26/18 06:46 Chloride 106 mmol/L (98-107) 06/26/18 06:46 Carbon Dioxide 29 mmol/L (22-30) 06/26/18 06:46 Anion Gap 4 mmol/L 06/26/18 06:46 BUN 13 mg/dL (9-20) 06/26/18 06:46 Creatinine 0.48 mg/dL (0.66-1.25) L 06/26/18 06:46 Est GFR (CKD-EPI)AfAm >90 (>60 ml/min/1.73 sqM) 06/26/18 06:46 Est GFR (CKD-EPI)NonAf >90 (>60 ml/min/1.73 sqM) 06/26/18 06:46 Glucose 96 mg/dL (74-99) 06/26/18 06:46 Calcium 8.2 mg/dL (8.4-10.2) L 06/26/18 06:46 Total Bilirubin 1.6 mg/dL (0.2-1.3) H 06/20/18 21:30 AST 99 U/L (17-59) H 06/20/18 21:30 ALT 34 U/L (21-72) 06/20/18 21:30 Alkaline Phosphatase 163 U/L (38-126) H 06/20/18 21:30 C-Reactive Protein 175.4 mg/L (<10.0) H 06/24/18 06:39 Total Protein 6.7 g/dL (6.3-8.2) 06/20/18 21:30 Albumin 3.6 g/dL (3.5-5.0) 06/20/18 21:30 Prealbumin <5.0 mg/dL (18.0-42.0) L 06/24/18 06:39 Fluid Source Synovial 06/21/18 09:45 Fluid Color Yellow 06/21/18 09:45 Fluid Appearance Cloudy 06/21/18 09:45 Fluid RBC 86072 /uL 06/21/18 09:45 Fluid Nucleated Cells 6200 /uL 06/21/18 09:45 Fluid Polynuclear WBCs 83 % 06/21/18 09:45 Fluid Mononuclear WBCs 17 % 06/21/18 09:45 Synovial Source Left Knee 06/21/18 09:45 Synovial Crystals 06/21/18 09:45 Vancomycin Trough 7.2 ug/mL 06/25/18 07:52 Blood Type A Positive 06/22/18 19:56 Blood Type Confirm A Positive 06/22/18 23:34 Blood Type Recheck CABO Indicated 06/22/18 19:56 Antibody Screen NEGATIVE 06/22/18 19:56 Spec Expiration Date 06/25/2018 - 2356 06/22/18 19:56 Microbiology 06/21/18 19:10 Blood Blood Culture - Preliminary No Growth after 120 hours 06/21/18 18:21 Blood Blood Culture - Preliminary No Growth after 120 hours 06/21/18 09:45 Knee - Left Gram Stain - Final 06/21/18 09:45 Knee - Left Body Fluid Culture - Final Staph aureus 06/20/18 21:30 Blood Blood Culture - Preliminary No Growth after 120 hours 06/23/18 09:02 Knee - Left Gram Stain - Final 06/23/18 09:02 Knee - Left Wound Culture - Final Staphylococcus aureus 06/23/18 09:02 Knee - Left Anaerobic Culture - Preliminary 06/21/18 00:33 Knee - Left Gram Stain - Final 06/21/18 00:33 Knee - Left Body Fluid Culture - Final Staph aureus Assessment and Plan (1) Septic arthritis of knee, left Narrative/Plan: Pleasant 57-year-old male presents to hospital with increasing pain and swelling to his left knee. 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 No specific recent falls or penetrating injuries have occurred to the knee. The patient has been seeing orthopedics and aspiration showing evidence of the fluid from the knee with gram-positive cocci. Antibiotic therapy with vancomycin is being utilized currently and is appropriate we'll add in Ancef also pending further culture results. Plans for operative care in the morning have been noted. Multivitamin with zinc is added to the regimen to help with healing Will likely need an outpatient course of intravenous antibiotic therapy after discharge for a septic arthritis, final plans can be made once further culture results are available. Social work consult. 06/23/2018 reveals pleasant gentleman status post knee arthroscopic debridement of his left knee. Cultures revealing evidence of staph aureus only final culture results. If the blood cultures are negative the patient will require IV access placement and outpatient intravenous antibiotic therapy via the [facility] for 42 days regarding his septic arthritis. Pain control is adequate at this point in time continue multivitamin with zinc. Ambulation is as per the orthopedic service. 06/24/2018 the patient is aware of the significant infection to his knee and the need for intravenous antibiotic therapy. As the patient is starting to improve plans will be made once his blood cultures are negative. PICC line can be placed in the outpatient intravenous antibiotic therapy at the [facility] can be arranged. 06/26/2018 the patient is now had marked improvement. He is up with a walker and crutches. Pain control is adequate. He will be going to the [facility] for his outpatient intravenous antibiotic therapy with Rocephin for his MSSA septic arthritis of his knee. Adequate protein intake and a multivitamin are suggested. Following the office and we'll also see orthopedics. Status: Acute Code(s): M00.9 - PYOGENIC ARTHRITIS, UNSPECIFIED SNOMED Code(s ): 090910815
== END 2018-06-26 15:32 | disposition home or self-care (01) | DRG 486 ==
LOC: EC 20:18 → 3SUR 06-21 01:02 → OBSVTOIN 06-22 11:08
PROVIDERS: ADMIT Family Medicine; ATTEND Family Medicine
PROC: 0SBD4ZZ Excision of Left Knee Joint, Percutaneous Endoscopic Approach (ICD-10-PCS; 2018-06-23)
PROC: 3E1U38Z Irrigation of Joints using Irrigating Substance, Percutaneous Approach (ICD-10-PCS; 2018-06-23)
PROC: 02HV33Z Insertion of Infusion Device into Superior Vena Cava, Percutaneous Approach (ICD-10-PCS; principal; 2018-06-26 10:59)
DX: M00.062 Staphylococcal arthritis, left knee (principal); L03.116 Cellulitis of left lower limb; I78.0 Hereditary hemorrhagic telangiectasia; D50.0 Iron deficiency anemia secondary to blood loss (chronic); M17.12 Unilateral primary osteoarthritis, left knee; M70.52 Other bursitis of knee, left knee; R04.0 Epistaxis; M23.212 Derangement of anterior horn of medial meniscus due to old tear or injury, left knee; Z82.0 Family history of epilepsy and other diseases of the nervous system
CPT/HCPCS: 20610; 36415; 36569; 76937; 77001; 80048; 80053; 80202; 84134; 85025; 85027; 85652; 86140; 86850; 86900; 86901; 87040; 87070; 87075; 87077; 87186; 87205; 89050; 89060; 96365; 96366; 96375; 99284

== ENCOUNTER 2019-02-28 14:06 | Emergency (ER) | payer OTHER ==
[2019-02-28 14:40] VITALS: RESP 18
--- NOTE | 2019-02-28 15:13 | XR ---
EXAMINATION TYPE: XR knee complete RT DATE OF EXAM: 02/28/2019 COMPARISON: NONE HISTORY: Pain TECHNIQUE: Four views are submitted. FINDINGS: Narrowing the medial compartment of the knee joint. No erosive changes. Large suprapatellar bursal fl uid collection seen and there is hypertrophic change and narrowing of the patellofemoral joint.. Oss eous structures are intact. No acute fracture seen. IMPRESSION: 1. No acute fracture or dislocation. 2. Large suprapatellar bursal fluid collection. If there is concern for internal derangement of the k nee correlate with MRI 3. Osteoarthritis.
[2019-02-28] MEDS ORDERED: LIDOCAINE 1% INJ 10MG/ML (20 ML MDV) SQ STA (15:36)
[2019-02-28 16:33] LABS: Basophils % (A) 0 %; Eosinophils % (A) 1 %; HCT 28.7 % (39.0-53.0); HGB 8.3 gm/dL (13.0-17.5); Hypochromasia Marked; Lymphocytes # (A) 0.3 k/uL (1.0-4.8); Lymphocytes % (A) 7 %; MCH 21.1 pg (25.0-35.0); MCV 72.7 fL (80.0-100.0); Mean Platelet Volume 9.4; Microcytosis Slight; Monocytes # (A) 0.4 k/uL (0-1.0); Monocytes % (A) 8 %; Neutrophils # (A) 3.7 k/uL (1.3-7.7); Neutrophils % (A) 81 %; Platelet Count 168 k/uL (150-450); Poikilocytosis Moderate; RBC 3.95 m/uL (4.30-5.90); RDW 15.3 % (11.5-15.5); WBC 4.6 k/uL (3.8-10.6)
[2019-02-28 16:40] LABS: ALT 29 U/L (21-72); AST 30 U/L (17-59); African American GFR (CKD) >90 (>60 ml/min/1.73 sqM); Albumin 3.7 g/dL (3.5-5.0); Alkaline Phosphatase 67 U/L (38-126); Anion Gap 6 mmol/L; Blood Urea Nitrogen 16 mg/dL (9-20); Calcium 8.7 mg/dL (8.4-10.2); Carbon Dioxide 26 mmol/L (22-30); Chloride 106 mmol/L (98-107); Glucose 94 mg/dL (74-99); Potassium 4.2 mmol/L (3.5-5.1); Sodium 138 mmol/L (137-145); Total Bilirubin 1.1 mg/dL (0.2-1.3); Total Protein 6.2 g/dL (6.3-8.2)
[2019-02-28 17:01] LABS: C Reactive Protein 73.2 mg/L (<10.0)
[2019-02-28 17:21] LABS: Erythrocyte Sedimentation Rate 25 mm/hr (0-15)
[2019-02-28] MEDS ORDERED: IBUPROFEN 600 MG TAB PO STA (17:37)
--- NOTE | 2019-02-28 19:49 | ED ---
General Adult HPI - General Chief complaint: Extremity Injury, Lower Stated complaint: Knee Pain Time Seen by Provider: 02/28/19 15:12 Source: patient, RN notes reviewed, old records reviewed Mode of arrival: ambulatory Limitations: no limitations - History of Present Illness Initial comments: 58-year-old male patient presents ED with atraumatic right knee swelling and pain. Patient reports that this has been ongoing for approximately 2 days. Patient has a history of septic arthritis in his left knee approximately 7 months ago. Patient states that the pain is primarily at the medial aspect of his knee. Denies any systemic symptoms fevers chills nausea vomiting diarrhea. Denies any chest pain or shortness breath. Patient is still ambulatory, however has some pain with range of motion of knee. Denies any other complaints at this time. Systemic: Pt denies fatigue, fever/chills, rash. Pt denies weakness, night sweats, weight loss. Neuro: Pt denies headache, visual disturbances, syncope or pre-syncope. HEENT: Pt denies ocular discharge or irritation, otalgia, rhinorrhea, pharyngitis or notable lymphadenopathy. Cardiopulmonary: Pt denies chest pain, SOB, heart palpitations, dyspnea on exertion. Abdominal/GI: Pt denies abdominal pain, n/v/d. : Pt denies dysuria, burning w/ urination, frequency/urgency. Denies new onset urinary or bowel incontinence. MSK: Pt denies loss of strength or function in extremities. Neuro: Pt denies new onset weakness, paresthesias. - Related Data Home Medications Medication Instructions Recorded Confirmed Ferrous Sulfate [Iron] 325 mg PO DAILY 06/20/18 02/28/19 Ibuprofen [Motrin Ib] 600 mg PO BID 02/28/19 02/28/19 Previous Rx's Medication Instructions Recorded Ibuprofen [Motrin] 600 mg PO Q6HR PRN #40 day 02/28/19 Allergies Allergy/AdvReac Type Severity Reaction Status Date / Time No Known Allergies Allergy Verified 02/28/19 15:48 Review of Systems ROS Statement: Those systems with pertinent positive or pertinent negative responses have been documented in the HPI. ROS Other: All systems not noted in ROS Statement are negative. 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 History of Any Multi-Drug Resistant Organisms: None Reported Past Surgical History: Orthopedic Surgery, Tonsillectomy Additional Past Surgical History / Comment(s): arm, wrist , and left knee surgeries Past Anesthesia/Blood Transfusion Reactions: No Reported Reaction Past Psychological History: No Psychological Hx Reported Smoking Status: Never smoker Past Alcohol Use History: Occasional Past Drug Use History: None Reported - Past Family History Father Additional Family Medical History / Comment(s): Nessa Garigs disease Brother(s) History Unknown: Yes Additional Family Medical History / Comment(s): hemorrhagic Telangietasia General Exam - General Exam Comments Initial Comments: Constitutional: NAD, AOX3, Pt has pleasant affect. HEENT: NC/AT, trachea midline, neck supple, no lymphadenopathy. Posterior pharynx non erythematous, without exudates. External ears appear normal, without discharge. Mucous membranes moist. Eyes PERRLA, EOM intact. There is no scleral icterus. No pallor noted. Cardiopulmonary: RRR, no murmurs, rubs or gallops, no JVD noted. Lungs CTAB in anterior and posterior duong. No peripheral edema. Abdominal exam: Abdomen soft and non-distended. Abdomen non-tender to palpation in all 4 quadrants. Bowel sounds active in LLQ. No hepatosplenomegaly. No ecchymosis Neuro: CN II-XII grossly intact. No nuchal rigidity. No raccon eyes, no pizarro sign, no hemotympanum. No cervical spinal tenderness. MSK: Right knee mildly erythematous and warm to touch. Active ROM displayed intact flexion, unable to fully extend straight. Moderate pain with extension. Suprapatellar effusion noted. Knee mildly tender to palpation in medial aspect. Joint aspiration was performed in sterile fashion. Revealed 40 mL of straw- colored and then slightly bloody aspirate. No posterior calf tenderness bilaterally, homans sign negative bilaterally. Posterior tibialis and radial pulse +2 bilaterally. Sensation intact in upper and lower extremities. Full active ROM in upper and lower extremities, 5/5 stregnth. Limitations: no limitations Course Vital Signs 02/28/19 02/28/19 02/28/19 14:37 17:45 18:49 Temperature 99.0 F Pulse Rate 72 65 66 Respiratory 18 18 18 Rate Blood Pressure 147/78 145/87 127/81 O2 Sat by Pulse 99 99 98 Oximetry 02/28/19 21:09 Temperature 97.9 F Pulse Rate 68 Respiratory 18 Rate Blood Pressure 152/93 O2 Sat by Pulse 99 Oximetry Procedures - Joint Aspiration/Injection Consent Obtained: verbal consent Indications: R/O septic arthritis Side of Body: right Joint Aspirated: knee Ultrasound Guidance: No Skin Prep: Chlorhexidine Local Anesthesia Used: Lidocaine 1% Amount of Anesthesia Used (mLs): 2 Needle Size Used: 18G Syringe Size Used: 20cc Fluid Obtained: bloody Total Fluid Obtained (mls): 40 Patient Tolerated Procedure: well Complications: none Medical Decision Making - Medical Decision Making 58-year-old male patient presents ED with atraumatic right knee swelling and pain. Patient reports that this has been ongoing for approximately 2 days. Patient has a history of septic arthritis in his left knee approximately 7 months ago. Patient states that the pain is primarily at the medial aspect of his knee. Denies any systemic symptoms fevers chills nausea vomiting diarrhea. Denies any chest pain or shortness breath. Patient is still ambulatory, however has some pain with range of motion of knee. Denies any other complaints at this time. Pt VSS, afebrile. Physical exam displayed: Right knee mildly erythematous and warm to touch. Active ROM displayed intact flexion, unable to fully extend straight. Moderate pain with extension. Suprapatellar effusion noted. Knee mildly tender to palpation in medial aspect. Joint aspiration was performed in sterile fashion. Revealed 40 mL of straw-colored and then slightly bloody aspirate. Left investigations revealed mild anemia which is not baseline for patient. CMP non-impressive. ESR and CRP elevated. Joint aspirate revealed 4-90 red blood cells, 9625 fluid cleared cells, 88 findings related blood cells, 12 mononuclear white blood cells. Plain film of knee displayed no acute fracture or dislocation. Large shoulder bursa fluid collection. Osteoarthritis. Patient discharged with orthopedic follow-up. Patient follow up with orthopedic consult tomorrow. Strict return precautions. On-call orthopedic surgeon was paged but did not return call. Case discussed in depth with Dr. Grider and Dr. Zhu. - Lab Data Result diagrams: 02/28/19 16:19 02/28/19 16:19 Lab Results 02/28/19 02/28/19 02/28/19 Range/Units 16:19 16:19 17:40 WBC 4.6 (3.8-10.6) k/uL RBC 3.95 L (4.30-5.90) m/uL Hgb 8.3 L (13.0-17.5) gm/dL Hct 28.7 L (39.0-53.0) % MCV 72.7 L (80.0-100.0) fL MCH 21.1 L (25.0-35.0) pg MCHC 29.0 L (31.0-37.0) g/dL RDW 15.3 (11.5-15.5) % Plt Count 168 (150-450) k/uL Neutrophils % 81 % Lymphocytes % 7 % Monocytes % 8 % Eosinophils % 1 % Basophils % 0 % Neutrophils # 3.7 (1.3-7.7) k/uL Lymphocytes # 0.3 L (1.0-4.8) k/uL Monocytes # 0.4 (0-1.0) k/uL Eosinophils # 0.0 (0-0.7) k/uL Basophils # 0.0 (0-0.2) k/uL Hypochromasia Marked Poikilocytosis Moderate Microcytosis Slight ESR 25 H (0-15) mm/hr Sodium 138 (137-145) mmol/L Potassium 4.2 (3.5-5.1) mmol/L Chloride 106 (98-107) mmol/L Carbon Dioxide 26 (22-30) mmol/L Anion Gap 6 mmol/L BUN 16 (9-20) mg/dL Creatinine 0.52 L (0.66-1.25) mg/dL Est GFR (CKD-EPI)AfAm >90 (>60 ml/min/1.73 sqM) Est GFR (CKD-EPI)NonAf >90 (>60 ml/min/1.73 sqM) Glucose 94 (74-99) mg/dL Calcium 8.7 (8.4-10.2) mg/dL Total Bilirubin 1.1 (0.2-1.3) mg/dL AST 30 (17-59) U/L ALT 29 (21-72) U/L Alkaline Phosphatase 67 (38-126) U/L C-Reactive Protein 73.2 H (<10.0) mg/L Total Protein 6.2 L (6.3-8.2) g/dL Albumin 3.7 (3.5-5.0) g/dL Fluid Source Synovial Fluid Color Yellow Fluid Appearance Cloudy Fluid RBC 490 /uL Fluid Nucleated Cells 9625 /uL Fluid Polynuclear WBCs 88 % Fluid Mononuclear WBCs 12 % Disposition Clinical Impression: Bursitis Disposition: HOME SELF-CARE Condition: Stable Instructions (If sedation given, give patient instructions): Knee Bursitis (ED), Knee Pain (ED) Additional Instructions: Patient to adhere to previously discussed treatment plan and will take medication(s) as directed. Patient to follow up with PCP in 1-2 days. Patient to return to ED if symptoms do not improve. Follow-up with primary care provider tomorrow. Follow up with orthopedic consult tomorrow. Return immediately to ER if condition worsens. Prescriptions: Ibuprofen [Motrin] 600 mg PO Q6HR PRN #40 day PRN Reason: Pain Is patient prescribed a controlled substance at d/c from ED?: No Referrals: None,Stated [Primary Care Provider] - 1-2 days Eligio Rollins DO [Doctor of Osteopathic Medicine] - 1-2 days Anuj Haines MD [STAFF PHYSICIAN] - 1-2 days
[2019-02-28 19:50] LABS: Color,BF Yellow
[2019-02-28 19:51] LABS: Appearance,BF Cloudy; Nucleated Cells, Body Fluid 9625 /uL; RBC, Body Fluid 490 /uL
[2019-02-28 20:12] LABS: Mononuclear WBC,Body Fluid 12 %; Polynuclear WBC,Body Fluid 88 %; Total Cells Counted,Body Fluid 100
[2019-02-28 21:11] VITALS: BP 152/93; PULSE 68; TEMP 97.9
== END 2019-02-28 21:23 | disposition home or self-care (01) ==
LOC: EC 14:06
DX: M70.51 Other bursitis of knee, right knee (principal)
CPT/HCPCS: 36415; 89060; 80053; 85652; 89050; 85025; 86140; 87070; 87205; 73562; 99284; 20610; J2001

== ENCOUNTER 2019-03-02 05:07 | Emergency (ER) | payer OTHER ==
[2019-03-02 05:20] VITALS: RESP 18; TEMP 98.4
--- NOTE | 2019-03-02 06:22 | ED ---
Lower Extremity Injury HPI - General Chief Complaint: Extremity Injury, Lower Stated Complaint: knee swelling Time Seen by Provider: 03/02/19 06:03 Source: patient Mode of arrival: wheelchair Limitations: no limitations, physical limitation - History of Present Illness Initial Comments: This patient is a 58-year-old man presenting to have evaluation of his right knee. The patient states that he has had swelling and pain of the knee going back 3-4 days now. He was seen here 2 days ago and had arthrocentesis performed and was told that there was no infection. States that he was able to follow with his primary physician who is working on a referral for orthopedics. Patient states that last night when he was getting ready for bed he placed ice o n his knee. The patient states that following this he noticed that the swelling was markedly increased. He states that now he is not able to really put much weight on his right leg due to pain. He states range of motion is decreased. He states that he did have a left knee septic arthritis proximal is 7 years ago. No fever or chills. No chest pain, dyspnea, palpitations. MD Complaint: knee injury -: days(s) Severity: moderate Worsens With: weight bearing, movement Associated Symptoms: able to partially bear weight Treatments Prior to Arrival: cold therapy - Related Data Home Medications Medication Instructions Recorded Confirmed Ferrous Sulfate [Iron] 325 mg PO DAILY 06/20/18 02/28/19 Ibuprofen [Motrin Ib] 600 mg PO BID 02/28/19 02/28/19 Previous Rx's Medication Instructions Recorded Ibuprofen [Motrin] 600 mg PO Q6HR PRN #40 day 02/28/19 Allergies Allergy/AdvReac Type Severity Reaction Status Date / Time No Known Allergies Allergy Verified 03/02/19 05:20 Review of Systems ROS Statement: Those systems with pertinent positive or pertinent negative responses have been documented in the HPI. ROS Other: All systems not noted in ROS Statement are negative. 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 History of Any Multi-Drug Resistant Organisms: None Reported Past Surgical History: Orthopedic Surgery, Tonsillectomy Additional Past Surgical History / Comment(s): arm, wrist , and left knee surgeries Past Anesthesia/Blood Transfusion Reactions: No Reported Reaction Past Psychological History: No Psychological Hx Reported Smoking Status: Never smoker Past Alcohol Use History: Occasional Past Drug Use History: None Reported - Past Family History Father Additional Family Medical History / Comment(s): Nessa Garigs disease Brother(s) History Unknown: Yes Additional Family Medical History / Comment(s): hemorrhagic Telangietasia General Exam Limitations: no limitations, physical limitation General appearance: alert, in no apparent distress Head exam: Present: atraumatic, normocephalic Eye exam: Present: normal appearance. Absent: scleral icterus, conjunctival injection ENT exam: Present: normal oropharynx Neck exam: Present: normal inspection Respiratory exam: Present: normal lung sounds bilaterally. Absent: respiratory distress, wheezes, rales, rhonchi, stridor Cardiovascular Exam: Present: regular rate, normal rhythm, normal heart sounds. Absent: systolic murmur, diastolic murmur, rubs, gallop Extremities exam: Present: tenderness, normal capillary refill, joint swelling, other (Right knee appears to be swollen versus a contralateral. On the exam there is an effusion present. There is mild warmth to touch though no erythema. Range of motion is decreased versus the contralateral. Not able to fully assess for ligamentous laxity due to pain on the exam.). Absent: full ROM, pedal edema Neurological exam: Present: alert. Absent: motor sensory deficit Course Vital Signs 03/02/19 05:15 Temperature 98.4 F Pulse Rate 78 Respiratory 18 Rate Blood Pressure 154/89 O2 Sat by Pulse 98 Oximetry Medical Decision Making - Lab Data Result diagrams: 03/02/19 06:25 03/02/19 06:25 Lab Results 03/02/19 03/02/19 Range/Units 06:25 06:25 WBC 5.9 (3.8-10.6) k/uL RBC 4.02 L (4.30-5.90) m/uL Hgb 8.5 L (13.0-17.5) gm/dL Hct 29.4 L (39.0-53.0) % MCV 73.0 L (80.0-100.0) fL MCH 21.0 L (25.0-35.0) pg MCHC 28.8 L (31.0-37.0) g/dL RDW 15.4 (11.5-15.5) % Plt Count 195 (150-450) k/uL Neutrophils % 82 % Lymphocytes % 6 % Monocytes % 9 % Eosinophils % 1 % Basophils % 0 % Neutrophils # 4.9 (1.3-7.7) k/uL Lymphocytes # 0.4 L (1.0-4.8) k/uL Monocytes # 0.5 (0-1.0) k/uL Eosinophils # 0.0 (0-0.7) k/uL Basophils # 0.0 (0-0.2) k/uL Hypochromasia Marked Poikilocytosis Moderate Microcytosis Slight Sodium 138 (137-145) mmol/L Potassium 4.3 (3.5-5.1) mmol/L Chloride 107 (98-107) mmol/L Carbon Dioxide 26 (22-30) mmol/L Anion Gap 5 mmol/L BUN 15 (9-20) mg/dL Creatinine 0.48 L (0.66-1.25) mg/dL Est GFR (CKD-EPI)AfAm >90 (>60 ml/min/1.73 sqM) Est GFR (CKD-EPI)NonAf >90 (>60 ml/min/1.73 sqM) Glucose 113 H (74-99) mg/dL Calcium 8.6 (8.4-10.2) mg/dL Disposition Clinical Impression: Knee effusion, right, Arthralgia Disposition: HOME SELF-CARE Condition: Fair Instructions (If sedation given, give patient instructions): Swollen Knee Joint (ED), Knee Pain (ED) Is patient prescribed a controlled substance at d/c from ED?: No Referrals: None,Stated [Primary Care Provider] - 1-2 days Eligio Rollins DO [Doctor of Osteopathic Medicine] - 1-2 days
[2019-03-02 06:38] LABS: Basophils % (A) 0 %; Eosinophils % (A) 1 %; HCT 29.4 % (39.0-53.0); HGB 8.5 gm/dL (13.0-17.5); Hypochromasia Marked; Lymphocytes # (A) 0.4 k/uL (1.0-4.8); Lymphocytes % (A) 6 %; MCHC 28.8 g/dL (31.0-37.0); Mean Platelet Volume 8.1; Microcytosis Slight; Monocytes # (A) 0.5 k/uL (0-1.0); Monocytes % (A) 9 %; Neutrophils # (A) 4.9 k/uL (1.3-7.7); Neutrophils % (A) 82 %; Platelet Count 195 k/uL (150-450); Poikilocytosis Moderate; RBC 4.02 m/uL (4.30-5.90); RDW 15.4 % (11.5-15.5); WBC 5.9 k/uL (3.8-10.6)
[2019-03-02 06:46] LABS: African American GFR (CKD) >90 (>60 ml/min/1.73 sqM); Anion Gap 5 mmol/L; Blood Urea Nitrogen 15 mg/dL (9-20); Calcium 8.6 mg/dL (8.4-10.2); Carbon Dioxide 26 mmol/L (22-30); Chloride 107 mmol/L (98-107); Glucose 113 mg/dL (74-99); Potassium 4.3 mmol/L (3.5-5.1); Sodium 138 mmol/L (137-145)
[2019-03-02] MEDS ORDERED: MORPHINE SULFATE 4 MG/ML SYRINGE IVP STA (08:56)
[2019-03-02 09:11] VITALS: BP 138/77; PULSE 73
== END 2019-03-02 09:11 | disposition home or self-care (01) ==
LOC: EC 05:07
DX: M25.461 Effusion, right knee (principal); Z79.1 Long term (current) use of non-steroidal anti-inflammatories (NSAID); Z79.899 Other long term (current) drug therapy
CPT/HCPCS: 36415; 80048; 85652; 85025; 87040; 99283; 96374; J2270

== ENCOUNTER 2019-03-11 11:45 | Emergency (ER) | payer OTHER ==
[2019-03-11 11:57] VITALS: BP 161/98; PULSE 73; RESP 18; TEMP 98.3
--- NOTE | 2019-03-11 12:41 | ED ---
Extremity Problem HPI - General Chief complaint: Extremity Problem,Nontraumatic Stated complaint: Rt knee pain Time Seen by Provider: 03/11/19 11:59 Source: patient Mode of arrival: ambulatory Limitations: no limitations - History of Present Illness Initial comments: Patient is a 58-year-old male presented to the ER with complaints of right knee pain. Patient has been to the ER previously for same issue with previous joint aspirations. Aspiration was negative for infection. Patient went to the orthopedic clinic and ordered a knee MRI. They also tried to aspirate without success. Patient is scheduled for knee surgery on 03/30. Patient is here today because his pain has increased and he is almost out of pain medication. Patient states he spoke to the on-call Ortho[facility] yesterday and was told to come see ER for pain control. Patient denies fever, chills, shortness of breath, cough. No other complaints at this time. - Related Data Home Medications Medication Instructions Recorded Confirmed Ferrous Sulfate [Iron] 325 mg PO DAILY 06/20/18 03/02/19 Previous Rx's Medication Instructions Recorded Ibuprofen [Motrin] 600 mg PO Q6HR PRN #40 day 02/28/19 Hydrocodone/Acetaminophen [Avinger 1 tab PO Q6HR PRN #5 tab 03/11/19 5-325] Allergies Allergy/AdvReac Type Severity Reaction Status Date / Time No Known Allergies Allergy Verified 03/11/19 11:57 Review of Systems ROS Statement: Those systems with pertinent positive or pertinent negative responses have been documented in the HPI. ROS Other: All systems not noted in ROS Statement are negative. 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 History of Any Multi-Drug Resistant Organisms: None Reported Past Surgical History: Orthopedic Surgery, Tonsillectomy Additional Past Surgical History / Comment(s): arm, wrist, and left knee surgeries Past Anesthesia/Blood Transfusion Reactions: No Reported Reaction Past Psychological History: No Psychological Hx Reported Smoking Status: Never smoker Past Alcohol Use History: Occasional Past Drug Use History: None Reported - Past Family History Father Additional Family Medical History / Comment(s): Nessa Garigs disease Brother(s) History Unknown: Yes Additional Family Medical History / Comment(s): hemorrhagic Telangietasia General Exam - General Exam Comments Initial Comments: GENERAL: Well-appearing, well-nourished and in no acute distress. HEAD: Atraumatic, normocephalic. EYES: Pupils equal round and reactive to light, pupils are pinpoint, extraocular movements intact, sclera anicteric, conjunctiva are normal. ENT: TMs normal, nares patent, oropharynx clear without exudates. Moist mucous membranes. NECK: Normal range of motion, supple without lymphadenopathy or JVD. LUNGS: Breath sounds clear to auscultation bilaterally and equal. No wheezes rales or rhonchi. HEART: Regular rate and rhythm without murmurs, rubs or gallops. ABDOMEN: Soft, nontender, normoactive bowel sounds. No guarding, no rebound. No masses appreciated. : Deferred EXTREMITIES: Pain with palpation of the right knee. Mild joint effusion present. Edema of the right lower leg and into the ankle. No pain or erythema of the calf. Neurovascular intact. NEUROLOGICAL: Cranial nerves II through XII grossly intact. Normal speech, normal gait. PSYCH: Normal mood, normal affect. SKIN: Warm, Dry, normal turgor, no rashes or lesions noted. Limitations: no limitations Course Vital Signs 03/11/19 11:50 Temperature 98.3 F Pulse Rate 73 Respiratory 18 Rate Blood Pressure 161/98 O2 Sat by Pulse 98 Oximetry Medical Decision Making - Medical Decision Making Patient is a 58-year-old male presenting with right knee pain. Patient has been in ER for similar issue. Patient has had multiple joint aspirations, negative for infection. Patient recently had knee MRI and is scheduled for knee surgery on 03/30 however he presents today because he is almost out of pain medication as a mail to get around his house. I spoke with the ortho PA on-call today, Juancarlos Lorenzo, who is aware of the patient and was okay letting patient go home and will see him first thing in the morning. Patient will be giving a few tablets of pain medication and instructed to alternate with Motrin 600s. Patient is okay with this plan and wanting to go home. Case is discussed with Dr. Zhu. Disposition Clinical Impression: Right knee pain, Swelling of knee joint, right Disposition: HOME SELF-CARE Condition: Stable Instructions (If sedation given, give patient instructions): Knee Pain (ED) Additional Instructions: Please return to the Emergency Department if symptoms worsen or any other concerns. Follow-up with orthopedics in the morning. Prescriptions: Hydrocodone/Acetaminophen [Avinger 5-325] 1 tab PO Q6HR PRN #5 tab PRN Reason: Pain Is patient prescribed a controlled substance at d/c from ED?: Yes When asked, does pt state using other controlled substances?: No If prescribed controlled substance>3 days was MAPS reviewed?: Prescribed <3 Days If opioid is for acute pain is fill amount 7 days or less?: Yes If Rx opioid, was Start Talking consent form obtained?: Yes Referrals: Joe Mendosa MD [Primary Care Provider] - 1-2 days
== END 2019-03-11 12:58 | disposition home or self-care (01) ==
LOC: EC 11:45
DX: M25.461 Effusion, right knee (principal)
CPT/HCPCS: 99283

== ENCOUNTER 2019-03-13 12:06 | Inpatient (IN) | payer OTHER ==
[~2019-03-13 12:06] MED LIST: Pre Op ABX Message 1 EACH MISC MISCELLANE ONE
[2019-03-13] MEDS ORDERED: LACTATED RINGERS 1,000 ML IV ONE ×3 (12:51→16:35)
[2019-03-13] MEDS ORDERED: ONDANSETRON 4 MG/2 ML VIAL IVP ONE (12:51)
[2019-03-13] MEDS ORDERED: DEXAMETHASONE SOD PHOSPHATE 10 MG/ML 1 ML VIAL IV ONE (12:52)
[2019-03-13 13:29] LABS: Basophils % (A) 0 %; Eosinophils # (A) 0.1 k/uL (0-0.7); Eosinophils % (A) 0 %; HCT 36.9 % (39.0-53.0); HGB 10.3 gm/dL (13.0-17.5); Hypochromasia Marked; Lymphocytes # (A) 0.8 k/uL (1.0-4.8); Lymphocytes % (A) 3 %; MCH 19.7 pg (25.0-35.0); MCHC 27.9 g/dL (31.0-37.0); MCV 70.6 fL (80.0-100.0); Mean Platelet Volume 7.8; Microcytosis Moderate; Monocytes # (A) 1.3 k/uL (0-1.0); Monocytes % (A) 6 %; Neutrophils # (A) 19.4 k/uL (1.3-7.7); Neutrophils % (A) 89 %; Poikilocytosis Moderate; RBC 5.23 m/uL (4.30-5.90); RDW 14.8 % (11.5-15.5); WBC 21.8 k/uL (3.8-10.6)
[2019-03-13 13:33] LABS: Platelet Count 581 k/uL (150-450)
[2019-03-13 13:53] LABS: INR 1.1 (<1.2); Prothrombin Time 11.7 sec (9.0-12.0)
[2019-03-13 14:02] LABS: Polychromasia Present
[2019-03-13] MEDS ORDERED: ceFAZolin IN SWFI 2 GM/20 ML SYRINGE IVP STA (14:37)
[2019-03-13] MEDS ORDERED: fentaNYL (PF) 50 MCG/ML 2 ML AMP ONE (15:08)
[2019-03-13] MEDS ORDERED: PROPOFOL 10 MG/ML 20 ML VIAL IV ONE (15:08)
[2019-03-13] MEDS ORDERED: hydrALAZINE HCL 20 MG/ML 1 ML VIAL ONE (15:08)
[2019-03-13] MEDS ORDERED: LABETALOL 5 MG/ML VIAL MDV ONE (15:08)
[2019-03-13] MEDS ORDERED: LIDOCAINE 1% INJ 10MG/ML (20 ML MDV) ONE (15:08)
[2019-03-13] MEDS ORDERED: MIDAZOLAM 2 MG/2 ML VIAL ONE (15:08)
[2019-03-13] MEDS ORDERED: BUPIVACAINE (PF) 0.5% 30 ML VIAL SQ ONE (15:25)
[2019-03-13] MEDS ORDERED: NALOXONE 0.4 MG/ML 1 ML VIAL IV PRN (15:51)
[2019-03-13] MEDS ORDERED: HYDROmorphone 1 MG/ML 1 ML SYRINGE IVP PRN (15:51)
[2019-03-13] MEDS ORDERED: HYDROcodone/APAP 5-325MG 1 EACH TAB PO PRN (15:51)
[2019-03-13] MEDS ORDERED: NA PHOS,M-B/NA PHOS,DI-BA 133 ML ENEMA RECTAL PRN (15:51)
[2019-03-13] MEDS ORDERED: HYDROmorphone 0.5 MG/0.5 ML SYRINGE IVP PRN ×2 (15:51)
[2019-03-13] MEDS ORDERED: MAGNESIUM HYDROXIDE 2,400 MG/10 ML CUP PO PRN (15:51)
[2019-03-13] MEDS ORDERED: BISACODYL 10 MG SUPP RECTAL PRN (15:51)
[2019-03-13] MEDS ORDERED: ONDANSETRON 4 MG/2 ML VIAL IVP PRN (15:51)
[2019-03-13] MEDS ORDERED: hydrALAZINE HCL 20 MG/ML 1 ML VIAL IVP ONE ×2 (16:10→16:25)
--- NOTE | 2019-03-13 16:10 | P.OP ---
Date of Procedure: 03/13/19 Preoperative Diagnosis: Torn medial meniscus right knee Postoperative Diagnosis: 1. Torn medial meniscus right knee 2. Large effusion 3. Multiple loose bodies 4. Synovitis 5. Infection right knee Procedure(s) Performed: 1. Arthroscopy of the right knee with partial medial meniscectomy(25% of meniscus excised) 2. Removal of loose bodies 3. Partial synovectomy of the medial femoral, lateral femoral, and patellofemoral compartments. 4. Incision and drainage right knee infection Anesthesia: MAC Surgeon: Eligio Rollins Estimated Blood Loss (ml): 25 Pathology: other (Cultures 2) Condition: stable Disposition: PACU Indications for Procedure: This is a 58-year-old gentleman that presented to me with chronic effusion of his right knee. He's had multiple aspirations and injections and also a workup for infection, which was negative. An MRI demonstrated a large effusion with a torn medial meniscus and after discussing the surgical nonsurgical treatment options with her at length, he wishes to proceed with arthroscopic debridement of his knee informed consent was obtained. Operative Findings: The operative findings are consistent with a torn medial meniscus as well as multiple loose bodies and synovitis. Also, there is a large abscess on the medial aspect of the knee which was incised and drained. Description of Procedure: Patient was seen and evaluated in the preoperative area, the operative site was marked with a skin marker. The patient was then brought to the operating room and given 1 g of Ancef intravenously. A general anesthetic was administered by the anesthesia department. Tourniquet was placed on the left upper thigh and the left lower extremity was then prepped and draped in usual sterile fashion. A universal timeout was then performed confirming the patient's name, surgical site, ALLERGIES, and consent. The limb was then exsanguinated and tourniquet insufflated to 250 mmHg. Standard inferior medial and inferior lateral portals were established in the knee. The trochar was inserted in the inferolateral portal. Examination began at the patellofemoral joint. There was a moderate amount of synovitis and loose bodies in the patellofemoral compartment.. Next the medial compartment was visualized. There was a tear of the posterior horn of the medial meniscus. There was a moderate amount of synovitis and loose bodies. The notch area was then visualized and the ACL WAS intact. The Lateral compartment was then visualized and the lateral meniscus was found to be intact, there was no evidence of chondromalacia, but a mild amount of synovitis. Next, using an arthroscopic shaver and a biter, partial medial meniscectomy was performed stable margins. A partial synovectomy is performed the medial femoral, lateral femoral, patellofemoral compartments. Loose bodies were removed. Next, on inspection of the knee, there was a large amount of tense swelling on the medial aspect of the knee. A stab incision was then performed after which a large amount of purulent material was expressed. This was cultured 2. The incision was then opened larger and the area was then irrigated profusely. After all the purulent material was expressed. There area was lightly closed with 5-0 nylon suture. A sterile dressing was then applied, and the tourniquet was released. Patient was then transferred to recovery room in stable condition. The patient will be admitted for an infectious disease workup and antibiotics.
[2019-03-13] MEDS: HYDROmorphone 0.5 MG/0.5 ML SYRINGE IVP ONE ×2 (16:15→16:20)
[2019-03-13] MEDS: SODIUM CHLORIDE 0.9% 1,000 ML IV SCH (17:13)
[2019-03-13 17:43] VITALS: BMI 25.4
--- NOTE | 2019-03-13 18:40 | P.CONS ---
History of Present Illness - Reason for Consult Consult date: 03/13/19 Medical management Requesting physician: Eligio Rollins - Chief Complaint Medical management - History of Present Illness 50-year-old male with past medical history of hereditary hemorrhagic telangiectasia presents to [facility] for arthroscopy with partial medial meniscectomy of the right knee for a torn medial meniscus of the right knee. [facility] has been consulted for medical management of this patient. Patient was seen and examined after his surgery. Aging complaints of 8 out of 10 severity pain in his right knee. Also complains of burning and numbness in that area. He denies any headache, lower extremity edema, nausea or vomiting, fever or chills, chest pain, cough, shortness of breath, palpitations, changes in appetite or weight. He denies any dizziness, weakness/tingling of the extremities. Patient states that he has been able to urinate since the surgery. Patient has not had a bowel movement yet, nor has he passed gas. Review of Systems Pertinent positives and negatives as discussed in HPI, a complete review of systems was performed and all other systems are negative. 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 History of Any Multi-Drug Resistant Organisms: None Reported Past Surgical History: Orthopedic Surgery, Tonsillectomy Additional Past Surgical History / Comment(s): arm, wrist, and left knee surgeries Past Anesthesia/Blood Transfusion Reactions: No Reported Reaction Past Psychological History: No Psychological Hx Reported Additional Psychological History / Comment(s): lives independently. Adult son can help take care of him after his discharge. 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 No experience. No international travel. No animal exposures. Lifelong nonsmoker. Denies significant current alcohol or recreational drug use Smoking Status: Never smoker Past Alcohol Use History: Occasional Past Drug Use History: None Reported - Past Family History Father Additional Family Medical History / Comment(s): Nessa Garigs disease Brother(s) History Unknown: Yes Additional Family Medical History / Comment(s): hemorrhagic Telangietasia Medications and Allergies Home Medications Medication Instructions Recorded Confirmed Type Ferrous Sulfate [Iron] 325 mg PO BID 06/20/18 03/13/19 History Ibuprofen [Motrin] 600 mg PO Q6HR PRN #40 day 02/28/19 03/13/19 Rx Hydrocodone/Acetaminophen [[place] 1 tab PO Q6HR PRN #5 tab 03/11/19 03/13/19 Rx 5-325] Allergies Allergy/AdvReac Type Severity Reaction Status Date / Time No Known Allergies Allergy Verified 03/13/19 08:14 Physical Exam Vitals: Vital Signs Temp Pulse Pulse Resp BP BP Pulse Ox 03/13/19 17:03 98 16 157/87 96 03/13/19 16:54 92 16 160/88 97 03/13/19 16:40 87 16 164/89 100 03/13/19 16:25 86 16 182/94 100 03/13/19 16:15 78 18 187/95 100 03/13/19 16:02 97.4 F L 74 15 188/95 100 03/13/19 12:49 98 F 88 20 177/98 100 Intake and Output 03/13/19 03/13/19 03/13/19 06:59 14:59 22:59 Intake Total 500 800 Output Total 50 25 Balance 450 775 Intake: IV 500 800 Output: Urine 50 Estimated Blood Loss 25 Other: Weight 97.069 kg General: [non toxic], [no distress], [appears at stated age] Derm: [warm], [dry], [telangiectasia of the lip, fingertips] Head: [atraumatic], [normocephalic], [symmetric] Eyes: [EOMI], [no lid lag], [anicteric sclera] Mouth: [no lip lesion], [mucus membranes moist] Cardiovascular: [S1S2 reg], [tachycardia], [positive DP pulse bilateral], Lungs: [CTA bilateral], [no rhonchi, no rales] , [no accessory muscle use] Abdominal: [soft], [ nontender to palpation], [no guarding], [no appreciable organomegaly] Ext: [no gross muscle atrophy], [no edema], [right knee wrapped, dressing clean dry and intact] Neuro: [no focal neuro deficits] Psych: [Alert], [oriented], [appropriate affect] Results CBC & Chem 7: 03/13/19 12:50 Labs: Abnormal Lab Results - Last 24 Hours (Table) 03/13/19 Range/Units 12:50 WBC 21.8 H (3.8-10.6) k/uL Hgb 10.3 L (13.0-17.5) gm/dL Hct 36.9 L (39.0-53.0) % MCV 70.6 L (80.0-100.0) fL MCH 19.7 L (25.0-35.0) pg MCHC 27.9 L (31.0-37.0) g/dL Plt Count 581 H D (150-450) k/uL Neutrophils # 19.4 H (1.3-7.7) k/uL Lymphocytes # 0.8 L (1.0-4.8) k/uL Monocytes # 1.3 H (0-1.0) k/uL Assessment and Plan Assessment: Assessment and Plan Anemia and thrombocytopenia Leukocytosis Tachycardia Hereditary hemorrhagic telangiectasia Hemoglobin 10.3, microcytic. Likely secondary to chronic blood loss from HHT. Plans: Daily CBC. Transfuse if hemoglobin less than 7. Leukocytosis of 21.8 with neutrophils. Patient is afebrile with no signs of infection. Likely reactive. Plans: Daily CBC. Heart rate around 100 bpm during physical exam. Likely secondary to pain. Plans: Monitor vitals. Adequate pain control with [place] and Dilaudid. Plans: Patient needs adequate follow-up in the outpatient setting. He has never been formally diagnosed, but his brother has been diagnosed with HHT. Thank you for involving us in the care of this patient. Please call with any additional questions or concerns.
[2019-03-13] MEDS: SENNOSIDES-DOCUSATE SODIUM 1 EACH TAB PO SCH (19:34)
[2019-03-13] MEDS ORDERED: ASPIRIN 325 MG TAB PO SCH (21:00)
[2019-03-14] MEDS ORDERED: HYDROcodone/APAP 5-325MG 1 EACH TAB ONE (01:10)
[2019-03-14] MEDS: SODIUM CHLORIDE 0.9% 1,000 ML IV SCH ×2 (06:20→20:38)
[2019-03-14] MEDS: ASPIRIN 81 MG PO SCH (08:23)
[2019-03-14] MEDS: HYDROcodone/APAP 5-325MG 1 EACH TAB PO PRN ×3 (08:23→20:40)
[2019-03-14] MEDS ORDERED: MELOXICAM 7.5 MG TAB PO SCH (09:00)
--- NOTE | 2019-03-14 09:21 | P.PN ---
Subjective Progress Note Date: 03/14/19 This is a 58-year-old male who is status post arthroscopy of the right knee with partial medial meniscectomy, removal of loose bodies, partial synovectomy of the medial femoral, lateral femoral and patellofemoral compartments. A large abscess was found in the right knee intraoperatively and incision and drainage of the right knee abscess was performed as well. This is postoperative day #1 and p atient is seen and evaluated at bedside with Dr. Eligio Rollins. 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 Patient states that he does have some soreness in the knee today. Patient denies any fever/chills, numbness, weakness, tingling, abdominal pain, shortness of breath or chest pain. Objective - Vital Signs Vital signs: Vital Signs Temp 100.7 F H 03/14/19 07:14 Pulse 82 03/14/19 07:14 Resp 15 03/14/19 07:14 BP 146/77 03/14/19 07:14 Pulse Ox 97 03/14/19 07:14 Intake & Output 03/13/19 03/14/19 03/14/19 18:59 06:59 18:59 Intake Total 1300 1290 390 Output Total 75 Balance 1225 1290 390 Weight 97.069 kg Intake: IV 1300 Intake, IV Titration 560 Amount Sodium Chloride 0.9% 1, 560 000 ml @ 70 mls/hr IV . [id number] [facility] Rx#:[id number] Oral 730 390 Output: Urine 50 Estimated Blood Loss 25 Other: Voiding Method Urinal # Voids 4 - Exam Vital signs are stable. Patient is in no acute distress and is alert and oriented 3. Calf is soft and nontender to palpation. Dressing is clean, dry, and intact. Patient has full foot and ankle motion without pain or difficulty. Neurovascular status and circulatory status are intact. - Labs CBC & Chem 7: 03/13/19 12:50 Labs: Abnormal Lab Results - Last 24 Hours (Table) 03/13/19 Range/Units 12:50 WBC 21.8 H (3.8-10.6) k/uL Hgb 10.3 L (13.0-17.5) gm/dL Hct 36.9 L (39.0-53.0) % MCV 70.6 L (80.0-100.0) fL MCH 19.7 L (25.0-35.0) pg MCHC 27.9 L (31.0-37.0) g/dL Plt Count 581 H D (150-450) k/uL Neutrophils # 19.4 H (1.3-7.7) k/uL Lymphocytes # 0.8 L (1.0-4.8) k/uL Monocytes # 1.3 H (0-1.0) k/uL Microbiology - Last 24 Hours (Table) 03/13/19 15:39 Gram Stain - Preliminary Knee - Right Wound Culture - Preliminary 03/13/19 15:40 Gram Stain - Preliminary Knee - Right Wound Culture - Preliminary 03/13/19 15:39 Anaerobic Culture - Preliminary Knee - Right 03/13/19 15:40 Anaerobic Culture - Preliminary Knee - Right Assessment and Plan (1) Status post arthroscopy of right knee Current Visit: Yes Status: Acute Code(s): Z98.890 - OTHER SPECIFIED POSTPROCEDURAL STATES SNOMED Code(s): 090346917 (2) Abscess of right knee Current Visit: Yes Status: Acute Code(s): L02.415 - CUTANEOUS ABSCESS OF RIGHT LOWER LIMB SNOMED Code(s): 34731743 (3) Hereditary hemorrhagic telangiectasia Current Visit: Yes Status: Acute Code(s): I78.0 - HEREDITARY HEMORRHAGIC TELANGIECTASIA SNOMED Code(s): 81246366 Plan: 1. Daily dressing changes. 2. Weightbearing as tolerated to the right lower extremity. 3. Aspirin 81 mg once daily for anticoagulation. 4. Continue routine postoperative care and pain control. 5. Appreciate input from infectious disease and internal medicine. 6. Continue IV antibiotics. 7. Cultures are pending. 8. Physical therapy today. 9. Anticipate discharge home in the next 24-48 hours.
[2019-03-14 09:29] LABS: Basophils % (A) 0 %; Eosinophils % (A) 0 %; HCT 30.3 % (39.0-53.0); Hypochromasia Marked; Lymphocytes # (A) 0.6 k/uL (1.0-4.8); Lymphocytes % (A) 3 %; MCH 19.7 pg (25.0-35.0); MCHC 27.8 g/dL (31.0-37.0); MCV 70.9 fL (80.0-100.0); Mean Platelet Volume 7.6; Microcytosis Moderate; Monocytes % (A) 6 %; Neutrophils # (A) 16.4 k/uL (1.3-7.7); Neutrophils % (A) 91 %; Platelet Count 507 k/uL (150-450); Poikilocytosis Slight; RBC 4.27 m/uL (4.30-5.90); RDW 15.1 % (11.5-15.5); WBC 18.1 k/uL (3.8-10.6)
[2019-03-14 09:33] LABS: HGB 8.4 gm/dL (13.0-17.5)
--- NOTE | 2019-03-14 17:16 | P.PN ---
Subjective Progress Note Date: 03/14/19 Principal diagnosis: Right knee pain Patient was seen and examined. No acute events overnight. Patient reports right knee pain, 5 out of 10 in severity. He denies any chest pain, shortness of breath or palpitations. No dizziness. No fever or chills. No nausea or vomiting. Objective - Vital Signs Vital signs: Vital Signs Temp 98.5 F 03/14/19 14:56 Pulse 76 03/14/19 14:56 Resp 16 03/14/19 14:56 BP 126/75 03/14/19 14:56 Pulse Ox 97 03/14/19 14:56 Intake & Output 03/13/19 03/14/19 03/14/19 18:59 06:59 18:59 Intake Total 1300 1290 690 Output Total 75 Balance 1225 1290 690 Weight 97.069 kg Intake: IV 1300 Intake, IV Titration 560 Amount Sodium Chloride 0.9% 1, 560 000 ml @ 70 mls/hr IV . [id number] [facility] Rx#:[id number] Oral 730 690 Output: Urine 50 Estimated Blood Loss 25 Other: Voiding Method Urinal # Voids 4 3 - Exam General: [non toxic], [no distress], [appears at stated age] Derm: [warm], [dry], [telangiectasia of the lip, fingertips] Head: [atraumatic], [normocephalic], [symmetric] Eyes: [EOMI], [no lid lag], [anicteric sclera] Mouth: [no lip lesion], [mucus membranes moist] Cardiovascular: [S1S2 reg], [tachycardia], [positive DP pulse bilateral], Lungs: [CTA bilateral], [no rhonchi, no rales] , [no accessory muscle use] Abdominal: [soft], [ nontender to palpation], [no guarding], [no appreciable organomegaly] Ext: [no gross muscle atrophy], [no edema], [right knee wrapped, dressing clean dry and intact] Neuro: [no focal neuro deficits] Psych: [Alert], [oriented], [appropriate affect] - Labs CBC & Chem 7: 03/14/19 07:49 Labs: Abnormal Lab Results - Last 24 Hours (Table) 03/14/19 Range/Units 07:49 WBC 18.1 H (3.8-10.6) k/uL RBC 4.27 L (4.30-5.90) m/uL Hgb 8.4 L D (13.0-17.5) gm/dL Hct 30.3 L (39.0-53.0) % MCV 70.9 L (80.0-100.0) fL MCH 19.7 L (25.0-35.0) pg MCHC 27.8 L (31.0-37.0) g/dL Plt Count 507 H (150-450) k/uL Neutrophils # 16.4 H (1.3-7.7) k/uL Lymphocytes # 0.6 L (1.0-4.8) k/uL Microbiology - Last 24 Hours (Table) 03/13/19 15:39 Gram Stain - Preliminary Knee - Right Wound Culture - Preliminary 03/13/19 15:40 Gram Stain - Preliminary Knee - Right Wound Culture - Preliminary 03/13/19 15:39 Anaerobic Culture - Preliminary Knee - Right 03/13/19 15:40 Anaerobic Culture - Preliminary Knee - Right Assessment and Plan Assessment: Assessment and Plan Right knee abscess Anemia and thrombocytopenia, acute blood loss Leukocytosis Tachycardia Hereditary hemorrhagic telangiectasia Patient has low-grade fever with T-max 100.7 Fahrenheit, leukocytosis of 21.8 with neutrophils and is improved today 18.1. Right knee abscess drained by orthopedic surgery. Plans: Continue cefazolin for coverage of gram-positive organisms. Follow wound cultures. Follow ID consultation. Hemoglobin 10.3-8.4, microcytic. Likely secondary to chronic and acute blood lo ss from HHT. Plans: Daily CBC. Transfuse if hemoglobin less than 7. Leukocytosis of 21.8-18.1 with neutrophils. Patient is afebrile with no signs of infection. Likely reactive. Plans: Daily CBC. Heart rate around 100 bpm during physical exam. Likely secondary to pain. Plans: Monitor vitals. Adequate pain control with [place] and Dilaudid. Resolved. Plans: Patient needs adequate follow-up in the outpatient setting. He has never been formally diagnosed, but his brother has been diagnosed with HHT. Thank you for involving us in the care of this patient. Please call with any additional questions or concerns.
[2019-03-14] MEDS: SENNOSIDES-DOCUSATE SODIUM 1 EACH TAB PO SCH (20:39)
[2019-03-14] MEDS: ceFAZolin IN SWFI 2 GM/20 ML SYRINGE IVP SCH (23:43)
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
[2019-03-15] MEDS: HYDROcodone/APAP 5-325MG 1 EACH TAB PO PRN ×4 (03:24→22:12)
--- NOTE | 2019-03-15 08:03 | P.PN ---
Subjective Progress Note Date: 03/15/19 This is a 58-year-old male who is status post arthroscopy of the right knee with partial medial meniscectomy, removal of loose bodies, partial synovectomy of the medial femoral, lateral femoral and patellofemoral compartments. A large abscess was found in the right knee intraoperatively and incision and drainage of the right knee abscess was performed as well. This is postoperative day #2 and p atient is seen and evaluated at bedside. 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 Patient states that his pain is well controlled and he has been up and walking. Patient denies any fever/chills, numbness, weakness, tingling, abdominal pain, shortness of breath or chest pain. Objective - Vital Signs Vital signs: Vital Signs Temp 98.5 F 03/15/19 07:00 Pulse 70 03/15/19 07:00 Resp 16 03/15/19 07:00 BP 124/75 03/15/19 07:00 Pulse Ox 99 03/15/19 07:00 Intake & Output 03/14/19 03/15/19 03/15/19 18:59 06:59 18:59 Intake Total 930 840 Output Total 300 Balance 930 540 Intake: Intake, IV Titration 840 Amount Sodium Chloride 0.9% 1, 840 000 ml @ 70 mls/hr IV . [id number] [facility] Rx#:[id number] Oral 930 Output: Urine 300 Other: # Voids 3 1 - Exam Vital signs are stable. Patient is in no acute distress and is alert and oriented 3. Calf is soft and nontender to palpation. Dressing is clean, dry, and intact. Patient has full foot and ankle motion without pain or difficulty. Neurovascular status and circulatory status are intact. - Labs CBC & Chem 7: 03/14/19 07:49 Labs: Abnormal Lab Results - Last 24 Hours (Table) 03/14/19 Range/Units 07:49 WBC 18.1 H (3.8-10.6) k/uL RBC 4.27 L (4.30-5.90) m/uL Hgb 8.4 L D (13.0-17.5) gm/dL Hct 30.3 L (39.0-53.0) % MCV 70.9 L (80.0-100.0) fL MCH 19.7 L (25.0-35.0) pg MCHC 27.8 L (31.0-37.0) g/dL Plt Count 507 H (150-450) k/uL Neutrophils # 16.4 H (1.3-7.7) k/uL Lymphocytes # 0.6 L (1.0-4.8) k/uL Microbiology - Last 24 Hours (Table) 03/13/19 15:40 Gram Stain - Preliminary Knee - Right Wound Culture - Preliminary Presumptive Staph aureus 03/13/19 15:39 Gram Stain - Preliminary Knee - Right Wound Culture - Preliminary Presumptive Staph aureus Assessment and Plan (1) Status post arthroscopy of right knee Current Visit: Yes Status: Acute Code(s): Z98.890 - OTHER SPECIFIED POSTPROCEDURAL STATES SNOMED Code(s): 514333601 (2) Abscess of right knee Current Visit: Yes Status: Acute Code(s): L02.415 - CUTANEOUS ABSCESS OF RIGHT LOWER LIMB SNOMED Code(s): 56689121 (3) Hereditary hemorrhagic telangiectasia Current Visit: Yes Status: Acute Code(s): I78.0 - HEREDITARY HEMORRHAGIC TELANGIECTASIA SNOMED Code(s): 31134753 Plan: 1. Daily dressing changes. 2. Weightbearing as tolerated to the right lower extremity. 3. Aspirin 81 mg once daily for anticoagulation. 4. Continue routine postoperative care and pain control. 5. Appreciate input from infectious disease and internal medicine. 6. Continue IV antibiotics per infectious disease. Patient is awaiting PICC line placement. 7. Preliminary culture shows staph aureus. 8. Physical therapy today. 9. Anticipate discharge home in the next 24-48 hours.
[2019-03-15] MEDS: ceFAZolin IN SWFI 2 GM/20 ML SYRINGE IVP SCH ×3 (09:55→23:15)
[2019-03-15] MEDS: ASPIRIN 81 MG PO SCH (09:55)
[2019-03-15] MEDS: SODIUM CHLORIDE 0.9% 1,000 ML IV SCH (11:07)
[2019-03-15] MEDS ORDERED: DIAZEPAM 5 MG/ML 2 ML INJ IVP PRN (11:58)
[2019-03-15] MEDS ORDERED: LIDOCAINE 1% INJ 10MG/ML (20 ML MDV) ONE (12:34)
[2019-03-15] MEDS ORDERED: LIDOCAINE 1% INJ 10MG/ML (20 ML MDV) SQ ONE (12:56)
--- NOTE | 2019-03-15 17:12 | IR ---
EXAMINATION TYPE: IR cvc insert >=5 years DATE OF EXAM: 03/15/2019 COMPARISON: NONE CLINICAL HISTORY: Infection Needs long-term intravenous access for antibiotics. PROCEDURE: After informed consent, the skin overlying the left basilic vein was localized with ultrasound and no meena to be compressible and patent. An ultrasound image was obtained and submitted on the patient's c villegas. The overlying skin was prepped and draped and Lidocaine was used for local anesthesia. A skin rajendra was made with a scalpel. Access was gained to the vein under ultrasound guidance with a 21 gau ge needle and a 0.018 inch wire was advanced. Access site was dilated with Peel-Away sheath and cath eter tailored to the appropriate length and advanced such that the distal tip is at the cavoatrial ju nction. Spot image was obtained verifying placement. Catheter was fixed to the skin and a sterile d ressing was placed following hemostasis. Catheter was aspirated and flushed with saline. Patient wa s discharged in stable condition without complication. Maximal barrier technique is utilized. Ultras ound image is documented on the chart. Ultrasound used with sterile technique. Fluoro time and fluoroscopic images submitted to document procedure: 18 intraoperative C-arm images, 0.3 minutes fluoroscopy time IMPRESSION: STATUS POST ULTRASOUND AND FLUOROSCOPIC GUIDED PICC LINE PLACEMENT, READY FOR USE. THIS PROCEDURE WAS PERFORMED BY THE UNDERSIGNED.
--- NOTE | 2019-03-15 19:44 | P.PN ---
Subjective Progress Note Date: 03/15/19 Patient seen and examined at bedside recently back from having his PICC line placed, report is been up and ambulatory between the chair and bed but cannot walk much further secondary to pain. Patient afebrile early this morning. The wound cultures, and back positive for staph aureus Objective - Vital Signs Vital signs: Vital Signs Temp 98.4 F 03/15/19 19:04 Pulse 83 03/15/19 19:04 Resp 16 03/15/19 19:04 BP 142/87 03/15/19 19:04 Pulse Ox 83 L 03/15/19 19:04 Intake & Output 03/15/19 03/15/19 03/16/19 06:59 18:59 06:59 Intake Total 840 590 Output Total 300 500 Balance 540 -500 590 Intake: Intake, IV Titration 840 Amount Sodium Chloride 0.9% 1, 840 000 ml @ 70 mls/hr IV . [id number] [facility] Rx#:[id number] Oral 590 Output: Urine 300 500 Other: # Voids 1 - Exam General: [non toxic], [no distress], [appears at stated age] Derm: [warm], [dry], [telangiectasia of the lip, fingertips] Head: [atraumatic], [normocephalic], [symmetric] Eyes: [EOMI], [no lid lag], [anicteric sclera] Mouth: [no lip lesion], [mucus membranes moist] Cardiovascular: [S1S2 reg], [tachycardia], [positive DP pulse bilateral], Lungs: [CTA bilateral], [no rhonchi, no rales] , [no accessory muscle use] Abdominal: [soft], [ nontender to palpation], [no guarding], [no appreciable organomegaly] Ext: [no gross muscle atrophy], [no edema], [right knee wrapped, dressing clean dry and intact] Neuro: [no focal neuro deficits] Psych: [Alert], [oriented], [appropriate affect] - Labs CBC & Chem 7: 03/14/19 07:49 Labs: Abnormal Lab Results - Last 24 Hours (Table) 03/15/19 03/15/19 Range/Units 07:58 07:58 ESR 82 H (0-15) mm/hr C-Reactive Protein 206.7 H (<10.0) mg/L Microbiology - Last 24 Hours (Table) 03/13/19 15:40 Gram Stain - Preliminary Knee - Right Wound Culture - Preliminary Presumptive Staph aureus 03/13/19 15:39 Gram Stain - Preliminary Knee - Right Wound Culture - Preliminary Presumptive Staph aureus Assessment and Plan Assessment: Sepsis Right knee abscess Anemia and thrombocytopenia, acute blood loss Tachycardia Hereditary hemorrhagic telangiectasia Patient has low-grade fever with T-max 100.7 Fahrenheit, leukocytosis of 21.8 with neutrophils and is improved yesterday 18.1. Right knee abscess drained by orthopedic surgery. Plans: Continue cefazolin for coverage of possible MRSA Fo llow wound cultures. Follow ID consultation. Hemoglobin 10.3-8.4, microcytic. Likely secondary to chronic and acute blood loss from HHT. Plans: Daily CBC. Transfuse if hemoglobin less than 7. Leukocytosis of 21.8-18.1 with neutrophils. Patient is afebrile with no signs of infection. Likely reactive. Plans: Daily CBC. Heart rate around 100 bpm during physical exam. Likely secondary to pain. Plans: Monitor vitals. Adequate pain control with [place] and Dilaudid. Resolved. Plans: Patient needs adequate follow-up in the outpatient setting. He has never been formally diagnosed, but his brother has been diagnosed with HHT. Thank you for involving us in the care of this patient. Please call with any additional questions or concerns.
[2019-03-15] MEDS: SENNOSIDES-DOCUSATE SODIUM 1 EACH TAB PO SCH (21:17)
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
[2019-03-16] MEDS: HYDROcodone/APAP 5-325MG 1 EACH TAB PO PRN ×2 (05:14→13:22)
[2019-03-16] MEDS: SODIUM CHLORIDE 0.9% 1,000 ML IV SCH (05:15)
[2019-03-16] MEDS: ceFAZolin IN SWFI 2 GM/20 ML SYRINGE IVP SCH (07:59)
[2019-03-16] MEDS: ASPIRIN 81 MG PO SCH (07:59)
[2019-03-16 08:27] LABS: Basophils % (A) 0 %; Eosinophils # (A) 0.1 k/uL (0-0.7); Eosinophils % (A) 1 %; HCT 29.3 % (39.0-53.0); HGB 8.3 gm/dL (13.0-17.5); Hypochromasia Marked; Lymphocytes # (A) 0.4 k/uL (1.0-4.8); Lymphocytes % (A) 4 %; MCHC 28.3 g/dL (31.0-37.0); MCV 70.9 fL (80.0-100.0); Mean Platelet Volume 7.2; Microcytosis Moderate; Monocytes # (A) 0.6 k/uL (0-1.0); Monocytes % (A) 6 %; Neutrophils # (A) 9.7 k/uL (1.3-7.7); Neutrophils % (A) 88 %; Platelet Count 519 k/uL (150-450); Poikilocytosis Slight; RBC 4.13 m/uL (4.30-5.90); RDW 14.9 % (11.5-15.5)
[2019-03-16 08:35] VITALS: BP 137/81; PULSE 88; RESP 15; TEMP 98.8
--- NOTE | 2019-03-16 09:48 | P.DS ---
Providers Date of admission: 03/14/19 15:31 Expected date of discharge: 03/16/19 Attending physician: Eligio Rollins Consults: 03/13/19 15:51 Consult Physician Routine Consulting Provider: Huey Ulrich Consult Reason/Comments: Abscess of right knee Do you want consulting provider notified?: Yes 03/13/19 15:57 Consult Physician Routine Consulting Provider: Marilynn Goins Consult Reason/Comments: medical management Do you want consulting provider notified?: Yes Primary care physician: Eligio Rollins [place] [facility] Course: This patient is a 58-year-old male with past medical history of hereditary hemorrhagic telangiectasia that presented to Dr. Rollins for a chronic effusion of his right knee. Patient underwent a arthroscopy of the right knee with partial medial meniscectomy, removal of loose bodies, partial synovectomy of the medial femoral, lateral femoral and patellofemoral compartments on 03/13/19. A large abscess on the right knee intraoperatively and incision and drainage of the right knee abscess performed as well. Patient was admitted to [facility] following the procedure. Procedure was performed without complication or sequelae. The patient is doing well postoperatively. Vital signs are stable on the day of discharge. Today is postoperative day #3 the patient is seen and evaluated bedside. Patient states he has been up with therapy walking around his room, but he can't walk much further secondary to pain. He states his pain is well-controlled at rest. Patient had a PICC line placed yesterday, per infectious disease. Patient denies chest pain, shortness of breath, nausea, vomiting, numbness or weakness of the right lower extremity, fevers or chills. On examination, the patient is lying in bed in no apparent distress. The pat ient is alert and oriented 3. On inspection of the right lower extremity, there is a dressing in place on the right knee. Dressing is clean, dry, intact. Patient has full range of motion of his ankle and foot without significant pain or issue. No pain on palpation of the left or right calf. Neurovascular and circulatory status is intact of the right lower extremity. Patient is discharged home in good condition, pending clearance from medicine and infectious disease. Plan - Discharge Summary New Discharge Prescriptions: New Aspirin [Adult Low Dose Aspirin EC] 81 mg PO DAILY 14 Days #14 tablet. HYDROcodone/APAP 5-325MG [[place] 5-325] 1 - 2 tab PO Q6HR PRN #30 tab PRN Reason: Pain Sennosides [Senokot] 1 tab PO BID #60 tablet cefTRIAXone [Rocephin] 2,000 mg IVPB Q24HR #42 vial No Action Ferrous Sulfate [Iron] 325 mg PO BID Ibuprofen [Motrin] 600 mg PO Q6HR PRN #40 day PRN Reason: Pain Hydrocodone/Acetaminophen [[place] 5-325] 1 tab PO Q6HR PRN #5 tab PRN Reason: Pain Discharge Medication List Ferrous Sulfate [Iron] 325 mg PO BID 06/20/18 [History] Ibuprofen [Motrin] 600 mg PO Q6HR PRN #40 day 02/28/19 [Rx] Hydrocodone/Acetaminophen [[place] 5-325] 1 tab PO Q6HR PRN #5 tab 03/11/19 [Rx] Aspirin [Adult Low Dose Aspirin EC] 81 mg PO DAILY 14 Days #14 tablet. 03/14/19 [Rx] HYDROcodone/APAP 5-325MG [[place] 5-325] 1 - 2 tab PO Q6HR PRN #30 tab 03/14/19 [Rx] Sennosides [Senokot] 1 tab PO BID #60 tablet 03/14/19 [Rx] cefTRIAXone [Rocephin] 2,000 mg IVPB Q24HR #42 vial 03/15/19 [Rx] Follow up Appointment(s)/Referral(s): [facility],Infusion [NON-STAFF] - Eligio Rollins DO [Primary Care Provider] - 1 Week Ambulatory/Diagnostic Orders: Basic Metabolic Panel [LAB.AMB] Location: None Selected Complete Blood Count w/diff [LAB.AMB] Location: None Selected Miscellaneous Lab Order [LAB.AMB] Location: None Selected Ambulatory Physical Therapy Order [THER.AMB] Location: None Selected Activity/Diet/Wound Care/Special Instructions: 1. Maintain bandage and keep incisions clean and dry. 2. Weightbearing as tolerated. 3. Please take medications as prescribed. 4. Sutures to be removed in 7-10 days. 5. Please follow up with [facility] and call with any questions or concerns, [phone]. 6. Patient will go to [facility] for IV infusions once at day. First appointment on: (still finalizing IV antibiotics): 7. [facility] is located behind the north side of the hospital at Count includes the [facility], [address]. Discharge Disposition: HOME SELF-CARE
--- NOTE | 2019-03-16 13:52 | P.PN ---
Subjective Progress Note Date: 03/16/19 Patient seen and examined at bedside doing well with his PICC line report is been up and ambulatory between the chair and bed but cannot walk much further secondary to pain. Patient afebrile early this morning. The wound cultures, and back positive for staph aureus resistant to clindamycin Objective - Vital Signs Vital signs: Vital Signs Temp 98.8 F 03/16/19 07:18 Pulse 88 03/16/19 07:18 Resp 15 03/16/19 07:18 BP 137/81 03/16/19 07:18 Pulse Ox 95 03/16/19 07:18 Intake & Output 03/15/19 03/16/19 03/16/19 18:59 06:59 18:59 Intake Total 1270 960 Output Total 500 550 Balance -500 720 960 Intake: Intake, IV Titration 200 Amount Sodium Chloride 0.9% 1, 200 000 ml @ 70 mls/hr IV . [id number] [facility] Rx#:[id number] Oral 1070 960 Output: Urine 500 550 Other: # Voids 1 - Exam General: [non toxic], [no distress], [appears at stated age] Derm: [warm], [dry], [telangiectasia of the lip, fingertips] Head: [atraumatic], [normocephalic], [symmetric] Eyes: [EOMI], [no lid lag], [anicteric sclera] Mouth: [no lip lesion], [mucus membranes moist] Cardiovascular: [S1S2 reg], [tachycardia], [positive DP pulse bilateral], Lungs: [CTA bilateral], [no rhonchi, no rales] , [no accessory muscle use] Abdominal: [soft], [ nontender to palpation], [no guarding], [no appreciable organomegaly] Ext: [no gross muscle atrophy], [no edema], [right knee wrapped, dressing clean dry and intact] Neuro: [no focal neuro deficits] Psych: [Alert], [oriented], [appropriate affect] - Labs CBC & Chem 7: 03/16/19 08:10 Labs: Abnormal Lab Results - Last 24 Hours (Table) 03/16/19 Range/Units 08:10 WBC 11.0 H (3.8-10.6) k/uL RBC 4.13 L (4.30-5.90) m/uL Hgb 8.3 L (13.0-17.5) gm/dL Hct 29.3 L (39.0-53.0) % MCV 70.9 L (80.0-100.0) fL MCH 20.0 L (25.0-35.0) pg MCHC 28.3 L (31.0-37.0) g/dL Plt Count 519 H (150-450) k/uL Neutrophils # 9.7 H (1.3-7.7) k/uL Lymphocytes # 0.4 L (1.0-4.8) k/uL Microbiology - Last 24 Hours (Table) 03/13/19 15:40 Anaerobic Culture - Preliminary Knee - Right 03/13/19 15:39 Anaerobic Culture - Preliminary Knee - Right 03/13/19 15:40 Gram Stain - Final Knee - Right Wound Culture - Final Staphylococcus aureus 03/13/19 15:39 Gram Stain - Final Knee - Right Wound Culture - Final Staphylococcus aureus Assessment and Plan Assessment: Sepsis Right knee abscess Anemia and thrombocytopenia, acute blood loss Tachycardia Hereditary hemorrhagic telangiectasia Patient has low-grade fever with T-max 100.7 Fahrenheit, leukocytosis of 21.8 with neutrophils and is improved yesterday 18.1. Right knee abscess drained by orthopedic surgery. Plans: Continue cefazolin for coverage of staph aureus knee abscess Follow wound cultures. Patient stable for discharge patient has a PICC line and can come for infusions will need a total of 6 weeks of IV Rocephin Hemoglobin 10.3-8.4, microcytic. Likely secondary to chronic and acute blood loss from HHT. Plans: Daily CBC. Transfuse if hemoglobin less than 7. Leukocytosis of 21.8-18.1 now down to 11 on day of discharge. Patient is afebrile with no signs of infection. Heart rate around 100 bpm during physical exam. Likely secondary to pain. Plans: Monitor vitals. Adequate pain control with [place] and Dilaudid. Resolved. Plans: Patient needs adequate follow-up in the outpatient setting. He has never been formally diagnosed, but his brother has been diagnosed with HHT. Thank you for involving us in the care of this patient. Please call with any additional questions or concerns.
--- NOTE | 2019-03-20 15:08 | CDI ---
Documentation Clarification Form Date: 03/20/2019 3:05:00 PM From: Irene Hickman Phone: If you have a question regarding this query, please contact Britt Ramos at [phone] between 8am and 5pm. Admit Date: 03/16/2019 8:55:00 AM Patient Name: Boubacar Turk Visit Number: [id number] Discharge Date: 03/16/2019 2:44:00 PM ATTENTION: The Clinical Documentation Specialists (CDI) and [facility] Coding Staff appreciate your assistance in clarifying documentation. Please respond to the clarification below the line at the bottom and electronically sign. The CDI & [facility] Coding staff will review the response and follow-up if needed. Please note: Queries are made part of the Legal Health Record. If you have any questions, please contact the author of this message via ITS. Dr. Eligio Rollins The patient presented with right knee pain and was found to have a torn medial meniscus, large effusion, mulitlple loose bodies, synovitis and infection. Documentation in Dr. Diaz's 03/15 and 03/16 progress notes states the patient has sepsis. History/Risk Factors: Previous infection of his left knee. Clinical Indicators: Elevated white count, Fever on 03/14, increased pulse rate on 03/13, staph aureus in the knee WBC: 21.8 Lactic acid: Not tested Blood cultures: Blood cultures not done. Vitals signs on admission: T. 98, P. 88, R. 20, BP 177/98. Temp. on 03/14 100.7, P. on 03/13 upt to 104, R. on 03/13 20. Antibiotics: IV Kefzol, IV Ceftriaxone IV Bolus: None In your professional opinion, please clarify if these findings signify one of the following conditions, whether the condition is POA, and cause, if known: Condition Sepsis ruled out SIRS, without underlying infectious process Sepsis Severe Sepsis Other, please specify Unable to determine Present on Admission Yes No Identify the (suspected) organism MTDD
--- NOTE | 2019-03-26 15:38 | CDI ---
Documentation Clarification Form Date: 03/26/19 From: Irene Hickman Phone: If you have a question regarding this query, please contact Britt Ramos at [phone] between 8am and 5pm. Admit Date: 03/16/2019 8:55:00 AM Patient Name: Boubacar Turk Visit Number: [id number] Discharge Date: 03/16/2019 2:44:00 PM ATTENTION: The Clinical Documentation Specialists (CDI) and [facility] Coding Staff appreciate your assistance in clarifying documentation. Please respond to the clarification below the line at the bottom and electronically sign. The CDI & [facility] Coding staff will review the response and follow-up if needed. Please note: Queries are made part of the Legal Health Record. If you have any questions, please contact the author of this message via ITS. Dr. Eligio Rollins Thank you for signing your previous query. Please document a response before signing this query. The patient presented with right knee pain and was found to have a torn medial meniscus, large effusion, multiple loose bodies, synovitis and infection. Documentation in Dr. Diaz's 03/15 and 03/16 progress notes states the patient has sepsis. History/Risk Factors: Previous infection of his left knee. Clinical Indicators: Elevated white count, Fever on 03/14, increased pulse rate on 03/13, staph aureus in the knee WBC: 21.8 Lactic acid: Not tested Blood cultures: Blood cultures not done. Vitals signs on admission: T. 98, P. 88, R. 20, BP 177/98. Temp. on 03/14 100.7, P. on 03/13 upt to 104, R. on 03/13 20. Antibiotics: IV Kefzol, IV Ceftriaxone IV Bolus: None In your professional opinion, please clarify if these findings signify one of the following conditions, whether the condition is POA, and cause, if known: Condition Sepsis ruled out SIRS, without underlying infectious process Sepsis Severe Sepsis Other, please specify Unable to determine Present on Admission Yes No Identify the (suspected) organism MTDD
== END 2019-03-16 14:44 | disposition home or self-care (01) | DRG 486 ==
LOC: OR 12:06 → 4SSUR 16:53 → OR 03-14 15:31 → 4SSUR 03-14 15:31 → OBSVTOIN 03-16 08:55
PROVIDERS: ADMIT Orthopaedic Surgery; ATTEND Orthopaedic Surgery
PROC: 0SBC4ZZ Excision of Right Knee Joint, Percutaneous Endoscopic Approach (ICD-10-PCS; 2019-03-13)
PROC: 0S9C4ZZ Drainage of Right Knee Joint, Percutaneous Endoscopic Approach (ICD-10-PCS; 2019-03-13)
PROC: 0SBC4ZZ Excision of Right Knee Joint, Percutaneous Endoscopic Approach (ICD-10-PCS; principal; 2019-03-13 15:00)
PROC: 02HV33Z Insertion of Infusion Device into Superior Vena Cava, Percutaneous Approach (ICD-10-PCS; 2019-03-15)
DX: M00.061 Staphylococcal arthritis, right knee (principal); L02.415 Cutaneous abscess of right lower limb; D62 Acute posthemorrhagic anemia; B95.61 Methicillin susceptible Staphylococcus aureus infection as the cause of diseases classified elsewhere; I78.0 Hereditary hemorrhagic telangiectasia; D69.6 Thrombocytopenia, unspecified; M65.9 Synovitis and tenosynovitis, unspecified; S83.241A Other tear of medial meniscus, current injury, right knee, initial encounter; Z16.29 Resistance to other single specified antibiotic; Z79.82 Long term (current) use of aspirin; Z82.49 Family history of ischemic heart disease and other diseases of the circulatory system
CPT/HCPCS: 36573; 85025; 85610; 85652; 86140; 86850; 86900; 86901; 87070; 87075; 87077; 87186; 87205

== ENCOUNTER 2019-04-09 18:20 | Inpatient (IN) | payer OTHER ==
--- NOTE | 2019-04-09 19:29 | ED ---
Extremity Problem HPI - General Chief complaint: Skin/Abscess/Foreign Body Stated complaint: picc line/arm swelling Time Seen by Provider: 04/09/19 19:24 Source: patient, RN notes reviewed, old records reviewed Mode of arrival: wheelchair Limitations: no limitations - History of Present Illness Initial comments: This is a 58 male to the ED co Left arm pain and swelling, patient has a asignificantly swollen and edematous and mildly painful LUE. Patient has PICC line in place for IV abx secondary to R knee infection following with Ortho. PAtient denies fever or new trauma MD Complaint: extremity pain, extremity swelling, other (LUE) -: hour(s) Location: left, upper extremity History of Same: No Radiation: none Quality: aching Consistency: constant Improves with: nothing Worsens with: nothing - Related Data Home Medications Medication Instructions Recorded Confirmed Ferrous Sulfate [Iron] 325 mg PO BID 06/20/18 04/09/19 Acetaminophen Tab [Tylenol Tab] 325 mg PO Q6H PRN 04/09/19 04/09/19 predniSONE 10 mg PO DAILY 04/09/19 04/09/19 traMADol HCL [Ultram] 50 mg PO Q6HR PRN 04/09/19 04/09/19 Previous Rx's Medication Instructions Recorded cefTRIAXone [Rocephin] 2,000 mg IVPB Q24HR #42 vial 03/15/19 Allergies Allergy/AdvReac Type Severity Reaction Status Date / Time No Known Allergies Allergy Verified 04/09/19 19:27 Review of Systems ROS Statement: Those systems with pertinent positive or pertinent negative responses have been documented in the HPI. ROS Other: All systems not noted in ROS Statement are negative. Past Medical History Past Medical History: No Reported History Additional Past Medical History / Comment(s): USING WALKER, RT KNEE ARTHROSCOPY 03/13/19 HX Hereditary Hemangiogenic Telangectasis History of Any Multi-Drug Resistant Organisms: None Reported Past Surgical History: Orthopedic Surgery, Tonsillectomy Additional Past Surgical History / Comment(s): arm, wrist, and SONG Knee surgeries Past Anesthesia/Blood Transfusion Reactions: No Reported Reaction Past Psychological History: No Psychological Hx Reported Smoking Status: Never smoker - Past Family History Father Additional Family Medical History / Comment(s): Nessa Garigs disease Brother(s) History Unknown: Yes Additional Family Medical History / Comment(s): hemorrhagic Telangietasia General Exam - General Exam Comments Initial Comments: LUE edema and swelling, pain Limitations: no limitations General appearance: alert, in no apparent distress Head exam: Present: atraumatic, normocephalic, normal inspection Eye exam: Present: normal appearance, PERRL, EOMI. Absent: scleral icterus, conjunctival injection, periorbital swelling ENT exam: Present: normal exam, mucous membranes moist Neck exam: Present: normal inspection. Absent: tenderness, meningismus, lymphadenopathy Respiratory exam: Present: normal lung sounds bilaterally. Absent: respiratory distress, wheezes, rales, rhonchi, stridor Cardiovascular Exam: Present: regular rate, normal rhythm, normal heart sounds. Absent: systolic murmur, diastolic murmur, rubs, gallop, clicks GI/Abdominal exam: Present: soft, normal bowel sounds. Absent: distended, tenderness, guarding, rebound, rigid Extremities exam: Present: normal inspection, full ROM, normal capillary refill. Absent: tenderness, pedal edema, joint swelling, calf tenderness Back exam: Present: normal inspection Neurological exam: Present: alert, oriented X3, CN II-XII intact Psychiatric exam: Present: normal affect, normal mood Skin exam: Present: warm, dry, intact, normal color. Absent: rash Course Vital Signs 04/09/19 04/09/19 19:07 21:57 Temperature 98.8 F Pulse Rate 76 68 Respiratory 18 18 Rate Blood Pressure 163/88 153/89 O2 Sat by Pulse 100 96 Oximetry - Reevaluation(s) Reevaluation #1: 04/09/19 20:52 medical record is reviewed Reevaluation #2: 04/09/19 20:52 patient reExamined with good Ulnar and Radial pulses. Medical Decision Making - Medical Decision Making 58 male to the ED c/o LUE pain and edema, erythema and DVT - Lab Data Result diagrams: 04/10/19 10:40 04/09/19 21:40 Disposition Clinical Impression: Deep vein thrombosis (DVT) of right upper extremity Disposition: ADMITTED IP TO THIS HOSP Condition: Fair Is patient prescribed a controlled substance at d/c from ED?: No
--- NOTE | 2019-04-09 21:05 | US ---
EXAMINATION TYPE: US venous doppler duplex UE LT DATE OF EXAM: 04/09/2019 COMPARISON: No previous ultrasound. CLINICAL HISTORY: Pain. Pain left arm per order. Swelling per patient x 7 hours. PICC line put in bas ilic vein February 2019. No Hx of DVT. Pt not on blood thinners. SIDE PERFORMED: Left Left Arm: There appears to be DVT in the left arm. Limited evaluation of subclavian vein. Subclavian, axillary, basilic, and brachial veins appear non-compressible or to compress incompletely and to lauren w thrombus. IMPRESSION: Evidence of acute superficial and fairly significant acute deep left upper extremity veno us thrombosis as detailed above.
[2019-04-09] MEDS ORDERED: SODIUM CHLORIDE 0.9% 1,000 ML IV ONE (21:10)
[2019-04-09] MEDS ORDERED: HEPARIN SODIUM,PORCINE 10,000 UNIT/ML 1 ML VIAL IV ONE (21:10)
[2019-04-09 21:54] LABS: Anisocytosis Moderate; Basophils % (A) 0 %; Eosinophils % (A) 1 %; HCT 27.1 % (39.0-53.0); HGB 7.3 gm/dL (13.0-17.5); Hypochromasia Marked; Lymphocytes # (A) 0.5 k/uL (1.0-4.8); Lymphocytes % (A) 8 %; MCH 18.9 pg (25.0-35.0); MCV 69.9 fL (80.0-100.0); Mean Platelet Volume 7.7; Microcytosis Marked; Monocytes # (A) 0.4 k/uL (0-1.0); Monocytes % (A) 7 %; Neutrophils % (A) 81 %; Platelet Count 318 k/uL (150-450); Poikilocytosis Marked; RBC 3.88 m/uL (4.30-5.90); RDW 20.7 % (11.5-15.5); WBC 6.1 k/uL (3.8-10.6)
[2019-04-09] MEDS: HEPARIN SOD,PORK IN 0.45% NACL 25,000 UNIT in 0.45% NACL 1 250ML.BAG IV SCH (21:54)
[2019-04-09 21:56] LABS: Appearance,Urine Clear (Clear); Bilirubin,Urine Negative (Negative); Blood,Urine Moderate (Negative); Color,Urine Yellow; Glucose,Urine (UA) Negative (Negative); Ketones,Urine Negative (Negative); Leukocyte Esterase,Urine Negative (Negative); Mucus,Urine Occasional /hpf; Nitrite,Urine Negative (Negative); Protein,Urine 2+ (Negative); RBC,Urine 6 /hpf (0-5); Specific Gravity,Urine 1.025 (1.001-1.035); Urobilinogen,Urine <2.0 mg/dL (<2.0); WBC,Urine 5 /hpf (0-5)
[2019-04-09 22:02] LABS: Prothrombin Time 11.1 sec (9.0-12.0)
[2019-04-09 22:03] LABS: ALT 15 U/L (21-72); AST 23 U/L (17-59); African American GFR (CKD) >90 (>60 ml/min/1.73 sqM); Albumin 3.3 g/dL (3.5-5.0); Alkaline Phosphatase 61 U/L (38-126); Anion Gap 8 mmol/L; Blood Urea Nitrogen 20 mg/dL (9-20); Calcium 8.6 mg/dL (8.4-10.2); Carbon Dioxide 31 mmol/L (22-30); Chloride 99 mmol/L (98-107); Glucose 92 mg/dL (74-99); Sodium 138 mmol/L (137-145); Total Bilirubin 0.9 mg/dL (0.2-1.3); Total Protein 6.3 g/dL (6.3-8.2)
--- NOTE | 2019-04-09 22:32 | XR ---
EXAM: XR Chest, 2 Views CLINICAL HISTORY: Weakness TECHNIQUE: Frontal and lateral views of the chest. COMPARISON: No relevant prior studies available. FINDINGS: Lungs: Unremarkable. No consolidation. Pleural space: Unremarkable. No pneumothorax. Heart: Mild enlargement of the heart. Mediastinum: Unremarkable. Bones/joints: Remote healed fracture of the right clavicle. IMPRESSION: No acute findings.
[2019-04-09 23:32] VITALS: BMI 26.9
[2019-04-09] MEDS: FERROUS SULFATE 325 MG TAB PO SCH (23:39)
[2019-04-09] MEDS: traMADol 50 MG TAB PO PRN (23:40)
[2019-04-09] MEDS: ACETAMINOPHEN TAB 325 MG TAB PO PRN (23:40)
[2019-04-10 03:15] LABS: Anisocytosis Moderate; Basophils % (A) 0 %; Eosinophils % (A) 1 %; HCT 23.8 % (39.0-53.0); Hypochromasia Marked; Lymphocytes # (A) 0.7 k/uL (1.0-4.8); Lymphocytes % (A) 13 %; MCH 19.1 pg (25.0-35.0); MCV 70.6 fL (80.0-100.0); Microcytosis Marked; Monocytes # (A) 0.4 k/uL (0-1.0); Monocytes % (A) 7 %; Neutrophils % (A) 76 %; Platelet Count 242 k/uL (150-450); Poikilocytosis Moderate; RBC 3.37 m/uL (4.30-5.90); RDW 20.7 % (11.5-15.5); WBC 5.2 k/uL (3.8-10.6)
[2019-04-10 03:16] LABS: INR 1.1 (<1.2); Partial Thromboplastin Time 36.1 sec (22.0-30.0); Prothrombin Time 11.9 sec (9.0-12.0)
[2019-04-10 03:25] LABS: HGB 6.4 gm/dL (13.0-17.5)
[2019-04-10] MEDS: HEPARIN SODIUM,PORCINE 5,000 UNIT/ML 1 ML VIAL IV PRN ×2 (04:04→12:56)
[2019-04-10] MEDS: FERROUS SULFATE 325 MG TAB PO SCH ×2 (07:47→20:10)
[2019-04-10] MEDS: predniSONE 10 MG TAB PO SCH (07:47)
[2019-04-10] MEDS ORDERED: NON-FORMULARY DRUG (Ceftriaxone 2,000 MG) IVPB SCH (09:00)
[2019-04-10] MEDS ORDERED: LIDOCAINE 1% INJ 10MG/ML (20 ML MDV) SQ ONE (09:18)
[2019-04-10] MEDS: traMADol 50 MG TAB PO PRN ×2 (10:36→20:10)
[2019-04-10] MEDS: ACETAMINOPHEN TAB 325 MG TAB PO PRN ×2 (10:39→20:19)
[2019-04-10 12:45] LABS: Anisocytosis Moderate; HCT 26.8 % (39.0-53.0); HGB 7.6 gm/dL (13.0-17.5); Hypochromasia Marked; MCH 20.8 pg (25.0-35.0); MCHC 28.2 g/dL (31.0-37.0); MCV 73.8 fL (80.0-100.0); Microcytosis Marked; Platelet Count 227 k/uL (150-450); Poikilocytosis Marked; RBC 3.64 m/uL (4.30-5.90); RDW 21.3 % (11.5-15.5); WBC 5.7 k/uL (3.8-10.6)
[2019-04-10] MEDS: HEPARIN SOD,PORK IN 0.45% NACL 25,000 UNIT in 0.45% NACL 1 250ML.BAG IV SCH ×2 (12:46→23:31)
--- NOTE | 2019-04-10 15:42 | P.CNOR ---
History of Present Illness - HPI Consult date: 04/10/19 History of present illness: This is a 58 year-old male who is admitted for DVT of the left upper extremity. Patient's past medical history is significant for hereditary hemorrhagic telangiectasia. Patient underwent arthroscopy of the right knee with partial medial meniscectomy, removal of loose bodies, partial synovectomy of the medial femoral, bilateral femoral and patellofemoral compartments, and incision and drainage of right knee infection on 03/13/[address] Eligio Rollins. Patient has been on IV antibiotics via PICC line per Dr. Ulrich. Patient states that the right knee continues to be swollen and painful. Patient denies any new injury, numbness, weakness, tingling, fever or chills. Review of Systems See HPI. Past Medical History Past Medical History: No Reported History Additional Past Medical History / Comment(s): USING WALKER, RT KNEE ARTHROSCOPY 03/13/19 HX Hereditary Hemangiogenic Telangectasis History of Any Multi-Drug Resistant Organisms: None Reported Past Surgical History: Orthopedic Surgery, Tonsillectomy Additional Past Surgical History / Comment(s): arm, wrist, and SONG Knee surgeries Past Anesthesia/Blood Transfusion Reactions: No Reported Reaction Past Psychological History: No Psychological Hx Reported Additional Psychological History / Comment(s): lives independently. Adult son can help take care of him after his discharge. Owns a home [place]. No experience. No international travel. No animal exposures. Lifelong nonsmoker. Denies significant current alcohol or recreational drug use Smoking Status: Never smoker Past Alcohol Use History: Occasional Past Drug Use History: None Reported - Past Family History Father Additional Family Medical History / Comment(s): Nessa Gherigs disease --ALS Brother(s) History Unknown: Yes Additional Family Medical History / Comment(s): hemorrhagic Telangietasia Medications and Allergies Home Medications Medication Instructions Recorded Confirmed Type Ferrous Sulfate [Iron] 325 mg PO BID 06/20/18 04/09/19 History cefTRIAXone [Rocephin] 2,000 mg IVPB Q24HR #42 vial 03/15/19 04/09/19 Rx Acetaminophen Tab [Tylenol Tab] 325 mg PO Q6H PRN 04/09/19 04/09/19 History predniSONE 10 mg PO DAILY 07/22/19 07/22/19 History traMADol HCL [Ultram] 50 mg PO Q6HR PRN 04/09/19 04/09/19 History Allergies Allergy/AdvReac Type Severity Reaction Status Date / Time No Known Allergies Allergy Verified 04/09/19 19:27 Physical Examination On exam patient is resting comfortably in bed in no acute distress. There is swelling and mild effusion of the right knee. Surgical incisions are well- healed with no surrounding erythema, drainage or warmth. Patient has limited range of motion of the right knee due to pain and swelling. Calf is soft and nontender to palpation. Sensation is intact. Patient has full range of motion of the right foot and ankle without pain or difficulty. Neurovascular status and circulatory status are intact. Results - Labs Labs: Abnormal Lab Results - Last 24 Hours (Table) 04/09/19 04/09/19 04/09/19 Range/Units 21:40 21:40 21:40 RBC 3.88 L (4.30-5.90) m/uL Hgb 7.3 L (13.0-17.5) gm/dL Hct 27.1 L (39.0-53.0) % MCV 69.9 L (80.0-100.0) fL MCH 18.9 L (25.0-35.0) pg MCHC 27.0 L (31.0-37.0) g/dL RDW 20.7 H (11.5-15.5) % Lymphocytes # 0.5 L (1.0-4.8) k/uL APTT (22.0-30.0) sec Carbon Dioxide 31 H (22-30) mmol/L Creatinine 0.47 L (0.66-1.25) mg/dL ALT 15 L (21-72) U/L Albumin 3.3 L (3.5-5.0) g/dL Urine Protein 2+ H (Negative) Urine Blood Moderate H (Negative) Urine RBC 6 H (0-5) /hpf Urine Mucus Occasional H (None) /hpf Crossmatch 04/09/19 04/10/19 04/10/19 Range/Units 21:40 02:33 02:33 RBC 3.37 L (4.30-5.90) m/uL Hgb 6.4 L* (13.0-17.5) gm/dL Hct 23.8 L (39.0-53.0) % MCV 70.6 L (80.0-100.0) fL MCH 19.1 L (25.0-35.0) pg MCHC 27.0 L (31.0-37.0) g/dL RDW 20.7 H (11.5-15.5) % Lymphocytes # 0.7 L (1.0-4.8) k/uL APTT 36.1 H (22.0-30.0) sec Carbon Dioxide (22-30) mmol/L Creatinine (0.66-1.25) mg/dL ALT (21-72) U/L Albumin (3.5-5.0) g/dL Urine Protein (Negative) Urine Blood (Negative) Urine RBC (0-5) /hpf Urine Mucus (None) /hpf Crossmatch See Detail 04/10/19 Range/Units 10:40 RBC (4.30-5.90) m/uL Hgb (13.0-17.5) gm/dL Hct (39.0-53.0) % MCV (80.0-100.0) fL MCH (25.0-35.0) pg MCHC (31.0-37.0) g/dL RDW (11.5-15.5) % Lymphocytes # (1.0-4.8) k/uL APTT 44.3 H (22.0-30.0) sec Carbon Dioxide (22-30) mmol/L Creatinine (0.66-1.25) mg/dL ALT (21-72) U/L Albumin (3.5-5.0) g/dL Urine Protein (Negative) Urine Blood (Negative) Urine RBC (0-5) /hpf Urine Mucus (None) /hpf Crossmatch H & H 04/09/19 04/10/19 Range/Units 21:40 02:33 Hgb 7.3 L 6.4 L* (13.0-17.5) gm/dL Hct 27.1 L 23.8 L (39.0-53.0) % Coagulation 04/09/19 04/10/19 Range/Units 21:40 02:33 INR 1.0 1.1 (<1.2) Result Diagrams: 04/10/19 10:40 04/09/19 21:40 Assessment and Plan (1) History of arthroscopy of right knee Current Visit: Yes Status: Acute Code(s): Z98.890 - OTHER SPECIFIED POSTPROCEDURAL STATES SNOMED Code(s): 163743307 (2) Deep vein thrombosis (DVT) of left upper extremity Current Visit: Yes Status: Acute Code(s): I82.622 - ACUTE EMBOLISM AND THROMBOSIS OF DEEP VEINS OF L UP EXTREM SNOMED Code(s): 726786814 (3) Effusion, right knee Current Visit: Yes Status: Acute Code(s): M25.461 - EFFUSION, RIGHT KNEE SNOMED Code(s): 527960107 Plan: 1. Procedure: Aspiration of the right knee The skin of the right knee is prepped with ChloraPrep, and anesthetized with 1% lidocaine without epinephrine. The right knee was then aspirated with an 18- gauge needle under sterile technique. 2 mL of bloody fluid was obtained. Patient tolerated the procedure well. Gauze dressing, Kerlix and Kobe wrap was then applied. 2. Right knee aspirate sent for culture and synovial fluid analysis. 3. No surgical intervention planned. Will continue to follow the patient closely.
--- NOTE | 2019-04-10 16:38 | HP ---
HISTORY AND PHYSICAL CHIEF COMPLAINT: Pain and swelling in the left arm. HISTORY OF PRESENT ILLNESS: This is another admission for this 58-year-old white male. About a month ago, he underwent right knee arthroscopy. After that, he apparently developed an infection in that knee. He has been followed by Orthopedics and Infectious Disease and has a PICC line in the left arm. He suddenly noticed extreme swelling in the left arm with generalized pain. He had no fever or chills. He came to the emergency room, where he was found to phlebothrombosis of the left upper extremity. REVIEW OF SYSTEMS: He has had no fever, chills, headaches, neurologic deficits, problems with vision or hearing, chest pain, shortness of breath, cough, hemoptysis, pleurisy, hypertension, heart disease, murmurs, rheumatic fever, orthopnea, PND, abdominal pain, nausea, vomiting, hematemesis, melena, hematochezia, colitis, diverticulosis, diverticulitis, hemorrhoids, jaundice, hepatitis, cirrhosis, hematuria, frequency, urgency, renal failure, diabetes, etc. Past medical history, family history, and personal and social histories are otherwise unremarkable. He did have a brother who at 40 of an MN. There is ALS in the family. He has a family history of HHT. He is a nonsmoker. PHYSICAL EXAMINATION: Blood pressure 126/80, pulse 72, respirations 16, and he is afebrile. In general, he appeared to be well developed, well nourished, in no acute distress. Skin color is normal. Skin is warm and dry. Lymph nodes are not enlarged. Head, ears, eyes, nose, mouth and throat were normal. Neck veins were not distended. Thyroid was not The abdomen was soft and non-tender. Left upper extremity is very edematous and he still has the PICC line in the upper medial left arm. Pulses are good. He is admitted to the hospital with the diagnoses: 1. Acute fluid with thrombosis of the left upper extremity secondary to PICC line. 2. Left knee pyarthrosis. 3. Hereditary teething checked ages. 4. Chronic anemia. PLAN: 1. Bed rest. 2. IV fluids. 3. Consult with Orthopedics and Infectious Disease. 4. Anticoagulate. 5. angiectases. 6. Chronic anemia. PLAN: 1. Bed rest. 2. IV fluids. 3. Consult Orthopedics and Infectious Disease. 4. Anticoagulate. 5. Evaluate anemia and rule out GI blood loss. MMODL / IJN: [id number] /
--- NOTE | 2019-04-10 17:08 | PN ---
PROGRESS NOTE DATE OF SERVICE: 04/10/2019 CHIEF COMPLAINT: DVT, left upper extremity. HISTORY OF PRESENT ILLNESS: This gentleman is still having quite a bit of discomfort in the left upper arm. PHYSICAL EXAMINATION: Chest is clear. Cardiac exam is normal. The left arm is still edematous. Function in the hand is normal. IMPRESSION: 1. Deep venous thrombosis, left upper extremity. 2. Recent pyarthrosis of the right knee. 3. Chronic anemia. PLAN: 1. Await removal of catheter. 2. Wait consult with Orthopedics and Infectious Disease regarding the next phase of management. MMODL / IJN: [id number] /
[2019-04-11 03:15] LABS: Anisocytosis Moderate; Basophils % (A) 0 %; Eosinophils # (A) 0.1 k/uL (0-0.7); Eosinophils % (A) 1 %; HCT 25.4 % (39.0-53.0); Hypochromasia Marked; Lymphocytes # (A) 0.8 k/uL (1.0-4.8); Lymphocytes % (A) 14 %; MCH 19.5 pg (25.0-35.0); MCHC 26.7 g/dL (31.0-37.0); Mean Platelet Volume 7.7; Microcytosis Marked; Monocytes # (A) 0.4 k/uL (0-1.0); Monocytes % (A) 8 %; Neutrophils # (A) 4.1 k/uL (1.3-7.7); Neutrophils % (A) 74 %; Platelet Count 240 k/uL (150-450); Poikilocytosis Marked; RBC 3.48 m/uL (4.30-5.90); RDW 21.5 % (11.5-15.5); WBC 5.5 k/uL (3.8-10.6)
[2019-04-11 03:22] LABS: HGB 6.8 gm/dL (13.0-17.5)
[2019-04-11 03:23] LABS: INR 1.2 (<1.2); Partial Thromboplastin Time 53.5 sec (22.0-30.0); Prothrombin Time 12.1 sec (9.0-12.0)
[2019-04-11] MEDS: FERROUS SULFATE 325 MG TAB PO SCH ×2 (08:18→20:33)
[2019-04-11] MEDS: predniSONE 10 MG TAB PO SCH (08:18)
[2019-04-11] MEDS: HEPARIN SOD,PORK IN 0.45% NACL 25,000 UNIT in 0.45% NACL 1 250ML.BAG IV SCH ×2 (09:16→20:39)
--- NOTE | 2019-04-11 09:37 | P.PN ---
Subjective Progress Note Date: 04/11/19 This is a 58-year-old male who is admitted for DVT of the left upper extremity. The patient's right knee was aspirated at bedside on 04/10/2019. Patient underwent arthroscopy of the right knee with partial medial meniscectomy, removal of loose bodies, partial synovectomy of the medial femoral, bilateral f emoral and patellofemoral compartments, and incision and drainage of right knee infection on 03/13/[address] Eligio Rollins. Patient reports continued discomfort in the right knee. Patient denies any new or worsening symptoms. Objective - Vital Signs Vital signs: Vital Signs Temp 98.7 F 04/11/19 07:53 Pulse 61 04/11/19 07:53 Resp 16 04/11/19 07:53 BP 140/83 04/11/19 07:53 Pulse Ox 97 04/11/19 07:53 Intake & Output 04/10/19 04/11/19 04/11/19 18:59 06:59 18:59 Intake Total 802.737 7545.648 0 Output Total 900 1125 Balance -438.548 -109.352 0 Intake: Intake, IV Titration 151.452 365.648 0 Amount Heparin Sod,Pork in 0.45% 151.452 365.648 0 NaCl 25,000 unit In 0.45 % NaCl 1 250ml.bag @ 18 UNITS/KG/HR 16.656 mls/hr IV .Q15H1M [facility] Rx#: [id number] Oral 340 Blood Product 310 310 Rc As-1 Unit 310 [id number] Rc Irr As3 Unit 310 [id number] Output: Urine 900 1125 Other: Voiding Method Toilet Toilet Urinal Urinal # Voids 3 # Bowel Movements 1 - Exam On exam patient is sitting up comfortably in bed in no acute distress. There is moderate swelling of the right knee. Dressing is clean, dry and intact. Patient has limited range of motion of the right knee due to pain and swelling. Calf is soft and nontender to palpation. Sensation intact. Neurovascular status and circulatory status are intact. - Labs CBC & Chem 7: 04/11/19 02:25 04/09/19 21:40 Labs: Abnormal Lab Results - Last 24 Hours (Table) 04/09/19 04/10/19 04/10/19 Range/Units 21:40 10:40 10:40 RBC 3.64 L (4.30-5.90) m/uL Hgb 7.6 L (13.0-17.5) gm/dL Hct 26.8 L (39.0-53.0) % MCV 73.8 L (80.0-100.0) fL MCH 20.8 L (25.0-35.0) pg MCHC 28.2 L (31.0-37.0) g/dL RDW 21.3 H (11.5-15.5) % Lymphocytes # (1.0-4.8) k/uL PT (9.0-12.0) sec INR (<1.2) APTT 44.3 H (22.0-30.0) sec Crossmatch See Detail 04/10/19 04/11/19 04/11/19 Range/Units 19:38 02:25 02:25 RBC 3.48 L (4.30-5.90) m/uL Hgb 6.8 L* (13.0-17.5) gm/dL Hct 25.4 L (39.0-53.0) % MCV 73.0 L (80.0-100.0) fL MCH 19.5 L (25.0-35.0) pg MCHC 26.7 L (31.0-37.0) g/dL RDW 21.5 H (11.5-15.5) % Lymphocytes # 0.8 L (1.0-4.8) k/uL PT 12.1 H (9.0-12.0) sec INR 1.2 H (<1.2) APTT 46.5 H 53.5 H (22.0-30.0) sec Crossmatch Microbiology - Last 24 Hours (Table) 04/10/19 14:40 Gram Stain - Preliminary Knee - Right Body Fluid Culture - Preliminary Assessment and Plan (1) History of arthroscopy of right knee Current Visit: Yes Status: Acute Code(s): Z98.890 - OTHER SPECIFIED POSTPROCEDURAL STATES SNOMED Code(s): 023755017 (2) Deep vein thrombosis (DVT) of left upper extremity Current Visit: Yes Status: Acute Code(s): I82.622 - ACUTE EMBOLISM AND THROMBOSIS OF DEEP VEINS OF L UP EXTREM SNOMED Code(s): 003978608 (3) Effusion, right knee Current Visit: Yes Status: Acute Code(s): M25.461 - EFFUSION, RIGHT KNEE SNOMED Code(s): 576370563 Plan: 1. Culture of right knee aspirate is pending. Gram stain is negative. 2. Appreciate input from internal medicine. 3. No surgical intervention planned. Will continue to follow the patient closely.
[2019-04-11] MEDS: ACETAMINOPHEN TAB 325 MG TAB PO PRN (10:15)
[2019-04-11] MEDS: traMADol 50 MG TAB PO PRN (10:16)
--- NOTE | 2019-04-11 12:38 | CDI ---
Documentation Clarification Form Date: 04/11/2019 12:29:21 PM From: Darshana Jose RN, CCDS Admit Date: 04/09/2019 9:11:00 PM Patient Name: Boubacar Turk Visit Number: [id number] ATTENTION: The Clinical Documentation Specialists (CDI) and [facility] Coding Staff appreciate your assistance in clarifying documentation. Please respond to the clarification below the line at the bottom and electronically sign. The CDI & [facility] Coding staff will review the response and follow-up if needed. Please note: Queries are made part of the Legal Health Record. If you have any questions, please contact the author of this message via ITS. Dr. Joe Mendosa A diagnosis of anemia lacks specificity to accurately reflect your patients severity of condition and clarification is needed. History/Risk Factors: s/p r knee arhtro on 03/13 Clinical indicators: H&P and Progress Notes: "chronic anemia" Hemoglobin: 7.3/7.6/6.8 Hematocrit: 27.1/26.8/25.4 Treatment: Transfusion 2 units PRBC'S Feosol 325 mg PO BID Iv Heparin per protocol Labs AM Daily In order to capture the severity of condition, please clarify the type of anemia and etiology if known: Chronic blood loss anemia Iron deficiency anemia Nutritional anemia Anemia of chronic disease (please specify) Unable to determine Other, please specify (Last Revision: June 2017) MTDD
--- NOTE | 2019-04-11 13:49 | PN ---
PROGRESS NOTE DATE OF SERVICE: 04/11/2019 CHIEF COMPLAINT: 1. DVT of the left arm. 2. Pyarthrosis, right knee. 3. HHT. HISTORY OF PRESENT ILLNESS: This gentleman dropped his hemoglobin below 7. He is being transfused with 1 unit. Orthopedics saw him history and tried to aspirate fluid from the right knee, apparently without success. The PICC line has been removed. PHYSICAL EXAM: There is slightly less swelling in the left upper extremity. Chest is clear. Cardiac exam is normal. IMPRESSION: 1. Deep venous thrombosis of the left arm. 2. Pyarthrosis of the right knee. 3. HHT. 4. Anemia. PLAN: 1. Transfuse 1 unit of packed cells. 2. Continue to monitor hemoglobin, left upper extremity edema and the right knee. MMODL / IJN: [id number] /
--- NOTE | 2019-04-11 17:18 | PN ---
PROGRESS NOTE DATE OF SERVICE: 04/11/2019. REASON FOR FOLLOWUP: 1. Right knee septic arthritis MSSA. 2. Left arm deep vein thrombosis from the PICC line. INTERVAL HISTORY: The patient did have a low-grade fever earlier this morning of 99.8. The patient afebrile since then. The pain to the right leg is currently controlled. The patient denies having any chest pain. No shortness of breath or cough. No nausea, vomiting, or any diarrhea. The patient did have aspirate of the right knee done by the today. PHYSICAL EXAMINATION: Blood pressure is 143/83 with a pulse of 81, temperature 98.7. He is 97% on room air. General description is a middle-aged male lying in bed in no distress. Respiratory system: Unlabored breathing. Clear to auscultation anteriorly. Heart S1, S2. Regular. Abdomen soft. The right leg is currently dressed up. No obvious drainage on the dressing. LABS: Hemoglobin 6.1, white count 5.1. BUN of 20, creatinine 0.47. DIAGNOSTIC IMPRESSION AND PLAN: Patient with right knee septic arthritis MSSA for which the patient getting Rocephin 2 g in outpatient setting. Now admitted to the hospital with DVT left arm and started PICC line which was discontinued yesterday. The patient currently on Rocephin 2 g daily thru peripheral IV as the patient still needs about 2 weeks of IV antibiotic as the patient may get a midline on discharge to finish course of therapy. Continue supportive care. MMMALACHIL / COREYN: [id number] /
[2019-04-12] MEDS: traMADol 50 MG TAB PO PRN ×2 (00:58→08:07)
[2019-04-12] MEDS: ACETAMINOPHEN TAB 325 MG TAB PO PRN ×2 (00:59→08:07)
[2019-04-12] MEDS: HEPARIN SOD,PORK IN 0.45% NACL 25,000 UNIT in 0.45% NACL 1 250ML.BAG IV SCH (05:55)
[2019-04-12 07:11] LABS: INR 1.2 (<1.2); Partial Thromboplastin Time 94.3 sec (22.0-30.0)
[2019-04-12 07:13] LABS: Anisocytosis Moderate; Basophils % (A) 0 %; Eosinophils # (A) 0.1 k/uL (0-0.7); Eosinophils % (A) 2 %; HCT 25.7 % (39.0-53.0); HGB 7.1 gm/dL (13.0-17.5); Hypochromasia Marked; Lymphocytes # (A) 0.7 k/uL (1.0-4.8); Lymphocytes % (A) 13 %; MCH 20.7 pg (25.0-35.0); MCHC 27.8 g/dL (31.0-37.0); MCV 74.5 fL (80.0-100.0); Mean Platelet Volume 8.5; Microcytosis Moderate; Monocytes # (A) 0.4 k/uL (0-1.0); Monocytes % (A) 8 %; Neutrophils # (A) 3.8 k/uL (1.3-7.7); Neutrophils % (A) 74 %; Platelet Count 220 k/uL (150-450); Poikilocytosis Marked; RBC 3.45 m/uL (4.30-5.90); RDW 20.6 % (11.5-15.5); WBC 5.2 k/uL (3.8-10.6)
[2019-04-12] MEDS: FERROUS SULFATE 325 MG TAB PO SCH ×2 (07:55→20:37)
[2019-04-12] MEDS: predniSONE 10 MG TAB PO SCH (07:55)
--- NOTE | 2019-04-12 08:59 | P.PN ---
Subjective Progress Note Date: 04/12/19 This is a 58-year-old male who is admitted for DVT of the left upper extremity. The patient's right knee was aspirated at bedside on 04/10/2019. Patient underwent arthroscopy of the right knee with partial medial meniscectomy, removal of loose bodies, partial synovectomy of the medial femoral, bilateral f emoral and patellofemoral compartments, and incision and drainage of right knee infection on 03/13/[address] Eligio Rollins. Patient reports continued discomfort in the right knee. Patient localizes the pain to the medial aspect of the left knee this morning. Patient denies any new or worsening symptoms. Objective - Vital Signs Vital signs: Vital Signs Temp 97.8 F 04/12/19 06:00 Pulse 62 04/12/19 06:00 Resp 18 04/12/19 06:00 BP 138/81 04/12/19 06:00 Pulse Ox 97 04/12/19 06:00 Intake & Output 04/11/19 04/12/19 04/12/19 18:59 06:59 18:59 Intake Total 968.943 8158.987 Output Total 0 Balance 527.262 0719.987 Intake: Intake, IV Titration 135.532 412.987 Amount Heparin Sod,Pork in 0.45% 135.532 412.987 NaCl 25,000 unit In 0.45 % NaCl 1 250ml.bag @ 18 UNITS/KG/HR 16.656 mls/hr IV .Q15H1M [facility] Rx#: [id number] Oral 900 Output: Stool 0 Other: Voiding Method Toilet Toilet Urinal Urinal # Voids 2 3 # Bowel Movements 1 - Exam On exam patient is sitting up comfortably in bed in no acute distress. There is moderate swelling of the right knee. Dressing is clean, dry and intact. Patient has limited range of motion of the right knee due to pain and swelling. Calf is soft and nontender to palpation. Sensation intact. Neurovascular status and circulatory status are intact. - Labs CBC & Chem 7: 04/12/19 06:18 04/09/19 21:40 Labs: Abnormal Lab Results - Last 24 Hours (Table) 04/11/19 04/11/19 04/12/19 Range/Units 10:19 18:34 06:18 RBC 3.45 L (4.30-5.90) m/uL Hgb 7.1 L (13.0-17.5) gm/dL Hct 25.7 L (39.0-53.0) % MCV 74.5 L (80.0-100.0) fL MCH 20.7 L (25.0-35.0) pg MCHC 27.8 L (31.0-37.0) g/dL RDW 20.6 H (11.5-15.5) % Lymphocytes # 0.7 L (1.0-4.8) k/uL INR (<1.2) APTT 35.9 H 69.0 H (22.0-30.0) sec 04/12/19 Range/Units 06:18 RBC (4.30-5.90) m/uL Hgb (13.0-17.5) gm/dL Hct (39.0-53.0) % MCV (80.0-100.0) fL MCH (25.0-35.0) pg MCHC (31.0-37.0) g/dL RDW (11.5-15.5) % Lymphocytes # (1.0-4.8) k/uL INR 1.2 H (<1.2) APTT 94.3 H (22.0-30.0) sec Microbiology - Last 24 Hours (Table) 04/10/19 14:40 Gram Stain - Preliminary Knee - Right Body Fluid Culture - Preliminary Assessment and Plan (1) History of arthroscopy of right knee Current Visit: Yes Status: Acute Code(s): Z98.890 - OTHER SPECIFIED POSTPROCEDURAL STATES SNOMED Code(s): 790169691 (2) Deep vein thrombosis (DVT) of left upper extremity Current Visit: Yes Status: Acute Code(s): I82.622 - ACUTE EMBOLISM AND THROMBOSIS OF DEEP VEINS OF L UP EXTREM SNOMED Code(s): 162191548 (3) Effusion, right knee Current Visit: Yes Status: Acute Code(s): M25.461 - EFFUSION, RIGHT KNEE SNOMED Code(s): 949026056 Plan: 1. Culture of right knee aspirate is pending. Gram stain is negative. 2. Appreciate input from internal medicine and infectious disease. 3. No surgical intervention planned. Will continue to follow the patient closely.
[2019-04-12] MEDS ORDERED: OXYMETAZOLINE 0.05% NASL SPRAY 1 SPRAY BOTTLE NASAL STA (16:38)
--- NOTE | 2019-04-12 17:57 | CONS ---
CONSULTATION REASON FOR CONSULTATION: Epistaxis. HISTORY OF PRESENT ILLNESS: This is a 58-year-old white male who was admitted with PICC line thrombosis in the left upper extremity. He has history of HHT and has had epistaxis previously intermittently. He is not anticoagulated. He had epistaxis for about 30 minutes earlier today, but this stopped with local pressure. He needs to continue on heparin apparently for the thrombosis. He previously had a knee arthroscopy with a secondary infection prompting the PICC line. He generally has a few episodes of epistaxis on either side of the nose, usually right worse than the left per week which lasts usually a few minutes at a time and this is nothing particularly new for him. He has had a diagnosis of HHT for at least 15 years and his brother and father have this also. PAST MEDICAL HISTORY: Is as above. PAST SURGICAL HISTORY: Also as above. FAMILY HISTORY: Positive for cardiac disease. SOCIAL HISTORY: Denies smoking or alcohol use. REVIEW OF SYSTEMS: CONSTITUTIONAL: No fever, chills, or headache. HEENT: He denies visual change, nasal airway obstruction, sore throat, or decreased hearing. Chest: Denies chest pain, shortness of breath, cough. CARDIOVASCULAR: Heart: Denies heart disease or murmurs. ABDOMEN: Denies pain, nausea, or vomiting. The kidneys denies frequency. ENDOCRINE: Denies diabetes. PHYSICAL EXAM: GENERAL: He is a well-developed white male in no acute distress. He is a conversant, awake, alert and oriented x3. VITAL SIGNS: Vital signs overall stable. HEENT: Facial exam shows multiple telangiectasias diffusely subcutaneously of the facial skin and lips. EARS: Show canals were clear. Membranes unremarkable. Mobile. NOSE: Shows telangiectasia throughout the nasal cavities, floor of the nose and septum, especially with some minimal fresh blood on the right, however, no active bleeding. Mouth and throat shows telangiectasia of the mucosa, but no bleeding points. NECK: Supple without adenopathy or tenderness. ASSESSMENT: 1. Epistaxis, right-sided recent. 2. Hereditary hemorrhagic telangiectasia. PLAN: The patient has no active bleeding and it would not be uncommon that he would have epistaxis fairly frequently, but even more so under on anticoagulants. Ordered Afrin to be left at bedside. He can use this as needed with compression for epistaxis as well as at home. He would avoid cautery as this may exacerbate epistaxis and does not need any packing in the nose presently. If once an outpatient, he has recurring issues, he can contact our office for further evaluation as an outpatient. These patients sometimes will benefit from a dermal septoplasty , dermal septal grafting although generally he does fairly well with this. He may benefit from topically or orally. If you have any questions, please contact myself or my office. MMODL / IJN: [id number] /
--- NOTE | 2019-04-12 19:36 | PN ---
PROGRESS NOTE CHIEF COMPLAINT: Phlebothrombosis of the left upper extremity and pyarthrosis of the right knee. HISTORY OF PRESENT ILLNESS: This gentleman is starting to have a trouble now with epistaxis. Heparin will be stopped. PHYSICAL EXAM: Chest is clear. Cardiac exam is normal. Abdomen is soft, nontender and he has a right- sided epistaxis. IMPRESSION: 1. Phlebothrombosis of the left upper extremity. 2. Pyarthrosis of the right knee. 3. Right-sided epistaxis. PLAN: 1. Stop heparin. 2. ENT consult. 3. Repeat hemoglobin later this afternoon. MMODL / IJN: [id number] /
[2019-04-12 20:33] LABS: Anisocytosis Moderate; Basophils % (A) 0 %; Eosinophils # (A) 0.1 k/uL (0-0.7); Eosinophils % (A) 1 %; HCT 24.6 % (39.0-53.0); Hypochromasia Marked; Lymphocytes # (A) 0.5 k/uL (1.0-4.8); Lymphocytes % (A) 9 %; MCH 20.5 pg (25.0-35.0); MCHC 27.2 g/dL (31.0-37.0); MCV 75.5 fL (80.0-100.0); Mean Platelet Volume 8.3; Microcytosis Moderate; Monocytes # (A) 0.4 k/uL (0-1.0); Monocytes % (A) 7 %; Neutrophils # (A) 4.9 k/uL (1.3-7.7); Neutrophils % (A) 81 %; Platelet Count 256 k/uL (150-450); Poikilocytosis Marked; RBC 3.26 m/uL (4.30-5.90); RDW 21.1 % (11.5-15.5)
[2019-04-12 20:44] LABS: HGB 6.7 gm/dL (13.0-17.5)
[2019-04-13] MEDS: FERROUS SULFATE 325 MG TAB PO SCH ×2 (08:43→20:57)
[2019-04-13] MEDS: predniSONE 10 MG TAB PO SCH (08:43)
[2019-04-13] MEDS: ACETAMINOPHEN TAB 325 MG TAB PO PRN (08:53)
[2019-04-13] MEDS: traMADol 50 MG TAB PO PRN (08:54)
--- NOTE | 2019-04-13 10:09 | P.PN ---
Subjective Progress Note Date: 04/13/19 This is a 58-year-old male who is admitted for DVT of the left upper extremity. The patient's right knee was aspirated at bedside on 04/10/2019. Patient underwent arthroscopy of the right knee with partial medial meniscectomy, removal of loose bodies, partial synovectomy of the medial femoral, bilateral f emoral and patellofemoral compartments, and incision and drainage of right knee infection on 03/13/[address] Eligio Rollins. Patient states that his pain is well controlled in the left knee and he would like to try walking today. Patient denies any new or worsening symptoms. Objective - Vital Signs Vital signs: Vital Signs Temp 98.2 F 04/13/19 08:05 Pulse 65 04/13/19 08:05 Resp 16 04/13/19 08:05 BP 148/82 04/13/19 08:05 Pulse Ox 97 04/13/19 08:05 Intake & Output 04/12/19 04/13/19 04/13/19 18:59 06:59 18:59 Intake Total 1148.053 550 Output Total 500 1825 Balance 648.053 -1275 Intake: Intake, IV Titration 148.053 Amount Heparin Sod,Pork in 0.45% 148.053 NaCl 25,000 unit In 0.45 % NaCl 1 250ml.bag @ 18 UNITS/KG/HR 16.656 mls/hr IV .Q15H1M [facility] Rx#: [id number] Oral 1000 240 Blood Product 310 Rc As-1 Unit 310 [id number] Output: Urine 500 1825 Stool 0 Other: Voiding Method Toilet Toilet Urinal Urinal # Voids 2 1 # Bowel Movements 1 1 - Exam On exam patient is sitting up comfortably in bed in no acute distress. There is moderate swelling of the right knee. Dressing is clean, dry and intact. Patient has limited range of motion of the right knee due to pain and swelling. Calf is soft and nontender to palpation. Sensation intact. Neurovascular status and circulatory status are intact. - Labs CBC & Chem 7: 04/12/19 20:15 04/09/19 21:40 Labs: Abnormal Lab Results - Last 24 Hours (Table) 04/12/19 04/12/19 Range/Units 20:15 22:52 RBC 3.26 L (4.30-5.90) m/uL Hgb 6.7 L* (13.0-17.5) gm/dL Hct 24.6 L (39.0-53.0) % MCV 75.5 L (80.0-100.0) fL MCH 20.5 L (25.0-35.0) pg MCHC 27.2 L (31.0-37.0) g/dL RDW 21.1 H (11.5-15.5) % Lymphocytes # 0.5 L (1.0-4.8) k/uL Crossmatch See Detail Microbiology - Last 24 Hours (Table) 04/10/19 14:40 Gram Stain - Preliminary Knee - Right Body Fluid Culture - Preliminary Coagulase Negative Staph Assessment and Plan (1) History of arthroscopy of right knee Current Visit: Yes Status: Acute Code(s): Z98.890 - OTHER SPECIFIED POSTPROCEDURAL STATES SNOMED Code(s): 846130761 (2) Deep vein thrombosis (DVT) of left upper extremity Current Visit: Yes Status: Acute Code(s): I82.622 - ACUTE EMBOLISM AND THROMBOSIS OF DEEP VEINS OF L UP EXTREM SNOMED Code(s): 432108339 (3) Effusion, right knee Current Visit: Yes Status: Acute Code(s): M25.461 - EFFUSION, RIGHT KNEE SNOMED Code(s): 666177378 Plan: 1. Cultures showing Coagulase-negative staph. 2. Appreciate input from internal medicine and infectious disease. 3. No surgical intervention planned. Will continue to follow the patient closely.
[2019-04-13 11:11] LABS: Anisocytosis Moderate; Basophils % (A) 0 %; Eosinophils % (A) 1 %; HCT 27.2 % (39.0-53.0); HGB 7.4 gm/dL (13.0-17.5); Hypochromasia Marked; Lymphocytes # (A) 0.3 k/uL (1.0-4.8); Lymphocytes % (A) 5 %; MCH 21.2 pg (25.0-35.0); MCHC 27.3 g/dL (31.0-37.0); MCV 77.7 fL (80.0-100.0); Mean Platelet Volume 6.8; Microcytosis Moderate; Monocytes # (A) 0.4 k/uL (0-1.0); Monocytes % (A) 7 %; Neutrophils # (A) 4.6 k/uL (1.3-7.7); Neutrophils % (A) 85 %; Platelet Count 225 k/uL (150-450); Poikilocytosis Marked; RDW 21.1 % (11.5-15.5); WBC 5.4 k/uL (3.8-10.6)
--- NOTE | 2019-04-13 16:16 | P.CONS ---
History of Present Illness - Reason for Consult Consult date: 04/13/19 DVT Requesting physician: Joe Mendosa - Chief Complaint LIDIA Sweisael - History of Present Illness Boubacar is a pleasant male who apparently underwent Left knee surgery approx 4 weeks ago, unfortunely devloping post operative infection he was requiring IV Antibiotics. He notice left upper extremity swelling and came to Hospital. He was found to have a provoiked LUE DVT, place on AC therapy and hematology consulted. Review of Systems A 14 point review of systems was assessed and completed and are all negative except for HPI Past Medical History Past Medical History: No Reported History Additional Past Medical History / Comment(s): USING WALKER, RT KNEE ARTHROSCOPY 03/13/19 HX Hereditary Hemangiogenic Telangectasis History of Any Multi-Drug Resistant Organisms: None Reported Past Surgical History: Orthopedic Surgery, Tonsillectomy Additional Past Surgical History / Comment(s): arm, wrist, and SONG Knee surgeries Past Anesthesia/Blood Transfusion Reactions: No Reported Reaction Past Psychological History: No Psychological Hx Reported Smoking Status: Never smoker - Past Family History Father Additional Family Medical History / Comment(s): Nessa Garigs disease Brother(s) History Unknown: Yes Additional Family Medical History / Comment(s): hemorrhagic Telangietasia Medications and Allergies Home Medications Medication Instructions Recorded Confirmed Type Ferrous Sulfate [Iron] 325 mg PO BID 06/20/18 04/09/19 History cefTRIAXone [Rocephin] 2,000 mg IVPB Q24HR #42 vial 03/15/19 04/09/19 Rx Acetaminophen Tab [Tylenol Tab] 325 mg PO Q6H PRN 04/09/19 04/09/19 History predniSONE 10 mg PO DAILY 04/09/19 04/09/19 History traMADol HCL [Ultram] 50 mg PO Q6HR PRN 04/09/19 04/09/19 History Allergies Allergy/AdvReac Type Severity Reaction Status Date / Time No Known Allergies Allergy Verified 04/09/19 19:27 Physical Exam Vitals: Vital Signs Temp Pulse Pulse Pulse Resp BP BP 04/13/19 15:18 97.3 F L 64 12 141/66 04/13/19 08:05 98.2 F 65 16 148/82 04/13/19 04:47 99.1 F 66 20 145/81 04/13/19 01:50 98.1 F 73 20 141/74 04/13/19 01:20 97.2 F L 69 20 136/76 04/13/19 01:10 98.0 F 75 20 144/85 04/12/19 23:00 98.5 F 69 17 143/82 Pulse Ox 04/13/19 15:18 96 04/13/19 08:05 97 04/13/19 04:47 04/13/19 01:50 04/13/19 01:20 04/13/19 01:10 95 04/12/19 23:00 97 Intake and Output 04/13/19 04/13/19 04/13/19 06:59 14:59 22:59 Intake Total 550 Output Total 1825 1000 Balance -1275 -1000 Intake: Oral 240 Blood Product 310 Rc As-1 Unit 310 [id number] Output: Urine 1825 1000 Other: Voiding Method Toilet Urinal # Voids 2 Gen: Alert and Oriented, NAD Head: NCNT Neck Supple Heart RRR Lungs No increased effort CTA B Abdomen: S/ND/NT Ext: No Rash, LUE edema Psych: Calm and Coroperative Neuro: No Focal Deficits Noted. Results CBC & Chem 7: 04/13/19 10:55 04/09/19 21:40 Labs: Abnormal Lab Results - Last 24 Hours (Table) 04/12/19 04/12/19 04/13/19 Range/Units 20:15 22:52 10:55 RBC 3.26 L 3.50 L (4.30-5.90) m/uL Hgb 6.7 L* 7.4 L (13.0-17.5) gm/dL Hct 24.6 L 27.2 L (39.0-53.0) % MCV 75.5 L 77.7 L (80.0-100.0) fL MCH 20.5 L 21.2 L (25.0-35.0) pg MCHC 27.2 L 27.3 L (31.0-37.0) g/dL RDW 21.1 H 21.1 H (11.5-15.5) % Lymphocytes # 0.5 L 0.3 L (1.0-4.8) k/uL Crossmatch See Detail Microbiology - Last 24 Hours (Table) 04/10/19 14:40 Gram Stain - Preliminary Knee - Right Body Fluid Culture - Preliminary Coagulase Negative Staph Chest x-ray: report reviewed Venous US: report reviewed Assessment and Plan Plan: Assessment and Recommendations: LIDIA acute Provojked DVT: - Agree with anticoagulation at this time and recommend 3 months. - This appears provoked with history of recent surgery and picc line in same a rm. HHT: - IV Iron - Anemia Iron studies Restart anticoagualation plan 3 months - BLE Doppler - Heparin drip now monitor bleeding 24-48 hours then switch DOAC\\ Physician Attest: I have completed the full hihstory and physical and agree with above dictation, dictated as a scribe
--- NOTE | 2019-04-13 18:39 | PN ---
PROGRESS NOTE DATE OF SERVICE: 04/13/2019. REASON FOR FOLLOWUP: Right knee MSSA and septic arthritis. INTERVAL HISTORY: The patient is currently afebrile. The patient has been breathing comfortably. The patient denies having any chest pain, shortness of breath or cough. No abdominal pain, or any worsening pain to the right knee area. PHYSICAL EXAMINATION: Blood pressure 141/66, pulse of 54, temperature 97.3. He is 96% on room air. General description is a middle-aged male lying in bed in no distress. Respiratory system: Unlabored breathing. Clear to auscultation anteriorly. Heart is S1, S2. Regular rate and rhythm. Abdomen soft. No tenderness. Right knee some swelling. No redness. LABS: Hemoglobin 7.4, white count 5.4. The aspiration of heart knee showing coagulase negative Staph. DIAGNOSTIC IMPRESSION AND PLAN: Patient with right knee septic arthritis. Previous culture positive for MSSA. getting Rocephin 2 g daily in the hospital with left upper extremity DVT from PICC line has been discontinued. The patient has got a new midline. Plan is to continue with Rocephin 2 g daily for 2 weeks to finish a course of therapy. Continue supportive care. MMODL / IJN: [id number] /
[2019-04-13] MEDS: SODIUM FERRIC GLUCONAT-SUCROSE 125 MG in SODIUM CHLORIDE 0.9% 100 ML IVPB SCH (21:16)
--- NOTE | 2019-04-13 21:17 | PN ---
PROGRESS NOTE DATE OF SERVICE: 04/13/2019 CHIEF COMPLAINT: Phlebothrombosis left upper extremity, pyarthrosis of the right knee and epistaxis. HISTORY OF PRESENT ILLNESS: This patient developed fairly brisk epistaxis and heparin and his anticoagulation was stopped. He was seen by ENT and the nasal bleeding is also stopped. The left arm is improving. PHYSICAL EXAMINATION: The edema in the left arm is slowly going down. Chest is clear. Cardiac exam is normal. Right knee seems to be quiet at this time. IMPRESSION: 1. Deep vein thrombosis of the left upper extremity. 2. Infected right knee. 3. Epistaxis. PLAN: 1. Continue with current program and hold off on anticoagulation. 2. Refer to Hematology at the patient's request. MMODL / IJN: [id number] /
[2019-04-13 21:21] LABS: INR 1.1 (<1.2); Partial Thromboplastin Time 24.5 sec (22.0-30.0); Prothrombin Time 11.5 sec (9.0-12.0)
[2019-04-13 21:36] LABS: Anisocytosis Moderate; Basophils % (A) 0 %; Eosinophils # (A) 0.1 k/uL (0-0.7); Eosinophils % (A) 1 %; HCT 23.8 % (39.0-53.0); Hypochromasia Marked; Lymphocytes # (A) 0.6 k/uL (1.0-4.8); Lymphocytes % (A) 14 %; MCH 20.1 pg (25.0-35.0); MCHC 27.5 g/dL (31.0-37.0); MCV 73.1 fL (80.0-100.0); Mean Platelet Volume 7.6; Microcytosis Marked; Monocytes # (A) 0.4 k/uL (0-1.0); Monocytes % (A) 8 %; Neutrophils # (A) 3.5 k/uL (1.3-7.7); Neutrophils % (A) 74 %; Platelet Count 245 k/uL (150-450); Poikilocytosis Marked; RBC 3.26 m/uL (4.30-5.90); RDW 22.3 % (11.5-15.5); WBC 4.7 k/uL (3.8-10.6)
[2019-04-13 21:39] LABS: HGB 6.6 gm/dL (13.0-17.5)
[2019-04-13 21:40] LABS: Reticulocyte % 5.9 % (0.5-2.0)
[2019-04-13] MEDS: HEPARIN SOD,PORK IN 0.45% NACL 25,000 UNIT in 0.45% NACL 1 250ML.BAG IV SCH (22:56)
--- NOTE | 2019-04-13 22:57 | US ---
EXAMINATION TYPE: US venous doppler duplex LE DATE OF EXAM: 04/13/2019 8:32 PM COMPARISON: NONE CLINICAL HISTORY: dvt upper ex. Known left arm DVT. Recent right knee surgery, right knee swelling. SIDE PERFORMED: Bilateral TECHNIQUE: The lower extremity deep venous system is examined utilizing real time linear array sonog arely with graded compression, doppler sonography and color-flow sonography. VESSELS IMAGED: External Iliac Vein (EIV) Common Femoral Vein Deep Femoral Vein Greater Saphenous Vein * Femoral Vein Popliteal Vein Small Saphenous Vein * Proximal Calf Veins (* superficial vessels) FINDINGS: Grayscale, color doppler, spectral doppler imaging performed of the deep veins of the lower extremities. There is normal flow, compressibility, vascular waveforms. IMPRESSION: NEGATIVE FOR DVT, BILATERAL LOWER EXTREMITIES.
[2019-04-14 02:15] LABS: Iron Saturation 2.97 (15.00-50.00)
[2019-04-14] MEDS: traMADol 50 MG TAB PO PRN ×2 (05:14→15:26)
[2019-04-14] MEDS: ACETAMINOPHEN TAB 325 MG TAB PO PRN ×2 (05:17→15:25)
[2019-04-14 05:41] LABS: Anisocytosis Moderate; HCT 26.5 % (39.0-53.0); HGB 7.6 gm/dL (13.0-17.5); Hypochromasia Marked; MCH 21.4 pg (25.0-35.0); MCHC 28.7 g/dL (31.0-37.0); MCV 74.3 fL (80.0-100.0); Mean Platelet Volume 7.5; Microcytosis Marked; Platelet Count 249 k/uL (150-450); Poikilocytosis Marked; RBC 3.57 m/uL (4.30-5.90); RDW 21.8 % (11.5-15.5); WBC 4.4 k/uL (3.8-10.6)
[2019-04-14] MEDS: HEPARIN SODIUM,PORCINE 5,000 UNIT/ML 1 ML VIAL IV PRN (06:10)
[2019-04-14 07:16] LABS: Band Neutrophils % 1 %; Lymphocytes # (M) 0.31 k/uL (1.0-4.8); Neutrophils % (M) 83 %; Nucleated Red Blood Cells 0 /100 WBC (0-0); Total Cells Counted 100
[2019-04-14 07:17] LABS: Anisocytosis (M) Present; Ovalocytes Present; Poikilocytosis (M) Present; Polychromasia Present
[2019-04-14] MEDS: FERROUS SULFATE 325 MG TAB PO SCH ×2 (08:00→20:25)
[2019-04-14] MEDS: predniSONE 10 MG TAB PO SCH (08:00)
--- NOTE | 2019-04-14 08:33 | P.PN ---
Subjective Progress Note Date: 04/14/19 This is a 58-year-old male who is admitted for DVT of the left upper extremity. The patient's right knee was aspirated at bedside on 04/10/2019. Patient underwent arthroscopy of the right knee with partial medial meniscectomy, removal of loose bodies, partial synovectomy of the medial femoral, bilateral f emoral and patellofemoral compartments on 03/13/[address] Eligio Rollins. During arthroscopy of the right knee, on 03/13/2019, an abscess was found in the left knee and incision and drainage of right knee was performed as well. Patient states this pain in the left knee has somewhat improved today. Patient denies any new or worsening symptoms. Objective - Vital Signs Vital signs: Vital Signs Temp 98.1 F 04/14/19 04:30 Pulse 63 04/14/19 04:30 Resp 20 04/14/19 04:30 BP 156/90 04/14/19 04:30 Pulse Ox 99 04/13/19 21:30 Intake & Output 04/13/19 04/14/19 04/14/19 18:59 06:59 18:59 Intake Total 627.147 Output Total 1000 Balance -1000 627.147 Intake: Intake, IV Titration 117.147 Amount Heparin Sod,Pork in 0.45% 117.147 NaCl 25,000 unit In 0.45 % NaCl 1 250ml.bag @ 18 UNITS/KG/HR 16.656 mls/hr IV .Q15H1M [facility] Rx#: [id number] Oral 200 Blood Product 310 Rc As-1 Unit 310 [id number] Output: Urine 1000 Other: Voiding Method Toilet Urinal # Voids 2 1 - Exam On exam patient is sitting up comfortably in bed in no acute distress. There is moderate swelling of the right knee. Patient has limited range of motion of the right knee due to pain and swelling. Calf is soft and nontender to palpation. Sensation intact. Neurovascular status and circulatory status are intact. - Labs CBC & Chem 7: 04/14/19 05:10 04/09/19 21:40 Labs: Abnormal Lab Results - Last 24 Hours (Table) 04/12/19 04/12/19 04/13/19 Range/Units 06:18 22:52 10:55 RBC 3.50 L (4.30-5.90) m/uL Hgb 7.4 L (13.0-17.5) gm/dL Hct 27.2 L (39.0-53.0) % MCV 77.7 L (80.0-100.0) fL MCH 21.2 L (25.0-35.0) pg MCHC 27.3 L (31.0-37.0) g/dL RDW 21.1 H (11.5-15.5) % Lymphocytes # 0.3 L (1.0-4.8) k/uL Lymphocytes # (Manual) (1.0-4.8) k/uL Retic Count (0.5-2.0) % APTT (22.0-30.0) sec Iron 7 L (65-175) ug/dL Iron Saturation 2.97 L (15.00-50.00) Ferritin 7.8 L (22.0-322.0) ng/mL Crossmatch See Detail 04/13/19 04/14/19 04/14/19 Range/Units 19:58 05:10 05:10 RBC 3.26 L 3.57 L (4.30-5.90) m/uL Hgb 6.6 L* 7.6 L (13.0-17.5) gm/dL Hct 23.8 L 26.5 L (39.0-53.0) % MCV 73.1 L 74.3 L (80.0-100.0) fL MCH 20.1 L 21.4 L (25.0-35.0) pg MCHC 27.5 L 28.7 L (31.0-37.0) g/dL RDW 22.3 H 21.8 H (11.5-15.5) % Lymphocytes # 0.6 L (1.0-4.8) k/uL Lymphocytes # (Manual) 0.31 L (1.0-4.8) k/uL Retic Count 5.9 H (0.5-2.0) % APTT 33.5 H (22.0-30.0) sec Iron (65-175) ug/dL Iron Saturation (15.00-50.00) Ferritin (22.0-322.0) ng/mL Crossmatch Microbiology - Last 24 Hours (Table) 04/10/19 14:40 Gram Stain - Preliminary Knee - Right Body Fluid Culture - Preliminary Coagulase Negative Staph Assessment and Plan (1) History of arthroscopy of right knee Current Visit: Yes Status: Acute Code(s): Z98.890 - OTHER SPECIFIED POSTPROCEDURAL STATES SNOMED Code(s): 683089287 (2) Deep vein thrombosis (DVT) of left upper extremity Current Visit: Yes Status: Acute Code(s): I82.622 - ACUTE EMBOLISM AND THROMBOSIS OF DEEP VEINS OF L UP EXTREM SNOMED Code(s): 835292184 (3) Effusion, right knee Current Visit: Yes Status: Acute Code(s): M25.461 - EFFUSION, RIGHT KNEE SNOMED Code(s): 999313356 Plan: 1. Cultures showing Coagulase-negative staph. 2. Appreciate input from internal medicine, hematolgoy and infectious disease. 3. No surgical intervention planned. Will continue to follow the patient closely.
[2019-04-14] MEDS: HEPARIN SOD,PORK IN 0.45% NACL 25,000 UNIT in 0.45% NACL 1 250ML.BAG IV SCH (11:30)
[2019-04-14 12:33] LABS: Anisocytosis Moderate; Basophils % (A) 0 %; Eosinophils % (A) 1 %; HCT 28.3 % (39.0-53.0); Hypochromasia Marked; Lymphocytes # (A) 0.4 k/uL (1.0-4.8); Lymphocytes % (A) 9 %; MCH 21.2 pg (25.0-35.0); MCHC 28.3 g/dL (31.0-37.0); MCV 74.8 fL (80.0-100.0); Mean Platelet Volume 7.2; Microcytosis Marked; Monocytes # (A) 0.4 k/uL (0-1.0); Monocytes % (A) 8 %; Neutrophils # (A) 3.9 k/uL (1.3-7.7); Neutrophils % (A) 80 %; Platelet Count 218 k/uL (150-450); Poikilocytosis Marked; RBC 3.79 m/uL (4.30-5.90); RDW 21.8 % (11.5-15.5); WBC 4.8 k/uL (3.8-10.6)
--- NOTE | 2019-04-14 14:01 | PN ---
PROGRESS NOTE CHIEF COMPLAINT: DVT in the left arm and right knee infection. HISTORY OF PRESENT ILLNESS: This gentleman has had no further epistaxis. He has been seen by Dr. Cabrera and he was placed back on anticoagulants. There has been no other interval change. Orthopedics is following his knee. PHYSICAL EXAMINATION: He remains pale. Chest is clear. Cardiac exam demonstrates tachycardia. Abdomen is soft, nontender. IMPRESSION: 1. Deep venous thrombosis of the left upper extremity. 2. Infection in the right knee. 3. Anemia. PLAN: 1. Try to progress activity. 2. Continue to monitor hemoglobin. 3. Continue with IV antibiotics for the right knee. 4. Anticoagulate with heparin and eventually Coumadin. MMODL / IJN: [id number] /
[2019-04-14] MEDS: SODIUM FERRIC GLUCONAT-SUCROSE 125 MG in SODIUM CHLORIDE 0.9% 100 ML IVPB SCH (20:25)
[2019-04-15] MEDS: HEPARIN SOD,PORK IN 0.45% NACL 25,000 UNIT in 0.45% NACL 1 250ML.BAG IV SCH ×2 (01:26→16:57)
[2019-04-15] MEDS: traMADol 50 MG TAB PO PRN (08:00)
[2019-04-15] MEDS: predniSONE 10 MG TAB PO SCH (08:02)
[2019-04-15] MEDS: FERROUS SULFATE 325 MG TAB PO SCH ×2 (08:02→20:12)
[2019-04-15] MEDS: ACETAMINOPHEN TAB 325 MG TAB PO PRN (08:09)
--- NOTE | 2019-04-15 09:04 | P.PN ---
Subjective Progress Note Date: 04/15/19 This is a 58-year-old male who is admitted for DVT of the left upper extremity. The patient's right knee was aspirated at bedside on 04/10/2019. Patient underwent arthroscopy of the right knee with partial medial meniscectomy, removal of loose bodies, partial synovectomy of the medial femoral, bilateral f emoral and patellofemoral compartments on 03/13/[address] Eligio Rollins. During arthroscopy of the right knee, on 03/13/2019, an abscess was found in the left knee and incision and drainage of right knee was performed as well. Patient states that he is going to try walking down the hallway today and he has been working on range of motion of the right knee. Patient denies any new or worsening symptoms. Objective - Vital Signs Vital signs: Vital Signs Temp 98.4 F 04/15/19 05:00 Pulse 59 L 04/15/19 05:00 Resp 18 04/15/19 05:00 BP 160/84 04/15/19 05:00 Pulse Ox 96 04/15/19 05:00 Intake & Output 04/14/19 04/15/19 04/15/19 18:59 06:59 18:59 Intake Total 124.856 537.786 Balance 124.856 537.786 Intake: Intake, IV Titration 124.856 237.786 Amount Heparin Sod,Pork in 0.45% 124.856 237.786 NaCl 25,000 unit In 0.45 % NaCl 1 250ml.bag @ 18 UNITS/KG/HR 16.656 mls/hr IV .Q15H1M [facility] Rx#: [id number] Oral 300 Other: # Voids 3 2 1 - Exam On exam patient is sitting up comfortably in bed in no acute distress. There is moderate swelling of the right knee. Patient has limited range of motion of the right knee due to pain and swelling. Calf is soft and nontender to palpation. Sensation intact. Neurovascular status and circulatory status are intact. - Labs CBC & Chem 7: 04/14/19 11:23 04/09/19 21:40 Labs: Abnormal Lab Results - Last 24 Hours (Table) 04/14/19 04/14/19 Range/Units 11:23 11:23 RBC 3.79 L (4.30-5.90) m/uL Hgb 8.0 L (13.0-17.5) gm/dL Hct 28.3 L (39.0-53.0) % MCV 74.8 L (80.0-100.0) fL MCH 21.2 L (25.0-35.0) pg MCHC 28.3 L (31.0-37.0) g/dL RDW 21.8 H (11.5-15.5) % Lymphocytes # 0.4 L (1.0-4.8) k/uL APTT 56.0 H (22.0-30.0) sec Microbiology - Last 24 Hours (Table) 04/10/19 14:40 Gram Stain - Final Knee - Right Body Fluid Culture - Final Staphylococcus epidermidis Assessment and Plan (1) History of arthroscopy of right knee Current Visit: Yes Status: Acute Code(s): Z98.890 - OTHER SPECIFIED POSTPROCEDURAL STATES SNOMED Code(s): 754017218 (2) Deep vein thrombosis (DVT) of left upper extremity Current Visit: Yes Status: Acute Code(s): I82.622 - ACUTE EMBOLISM AND THROMBOSIS OF DEEP VEINS OF L UP EXTREM SNOMED Code(s): 438119415 (3) Effusion, right knee Current Visit: Yes Status: Acute Code(s): M25.461 - EFFUSION, RIGHT KNEE SNOMED Code(s): 232821056 Plan: 1. Cultures showing Coagulase-negative staph. 2. Appreciate input from internal medicine, hematolgoy and infectious disease. 3. No surgical intervention planned. Will continue to follow the patient closely.
[2019-04-15 09:34] LABS: Anisocytosis Moderate; Basophils % (A) 0 %; Eosinophils # (A) 0.1 k/uL (0-0.7); Eosinophils % (A) 1 %; HCT 27.3 % (39.0-53.0); HGB 7.6 gm/dL (13.0-17.5); Hypochromasia Marked; Lymphocytes # (A) 0.5 k/uL (1.0-4.8); Lymphocytes % (A) 9 %; MCH 21.2 pg (25.0-35.0); MCV 75.6 fL (80.0-100.0); Mean Platelet Volume 8.3; Microcytosis Marked; Monocytes # (A) 0.4 k/uL (0-1.0); Monocytes % (A) 7 %; Neutrophils % (A) 80 %; Platelet Count 219 k/uL (150-450); Poikilocytosis Marked; RBC 3.62 m/uL (4.30-5.90); RDW 21.9 % (11.5-15.5)
[2019-04-15 10:01] LABS: INR 1.1 (<1.2); Prothrombin Time 11.8 sec (9.0-12.0)
[2019-04-15] MEDS: HEPARIN SODIUM,PORCINE 5,000 UNIT/ML 1 ML VIAL IV PRN (10:20)
--- NOTE | 2019-04-15 20:49 | PN ---
PROGRESS NOTE CHIEF COMPLAINT: DVT left arm, infected right knee. HISTORY OF PRESENT ILLNESS: This gentleman is doing better, feeling much better. Coumadin is being instituted. He is not having any further trouble with the left arm. PHYSICAL EXAM: Chest is clear. Cardiac exam is normal. Abdomen is soft, nontender. IMPRESSION: 1. Deep venous thrombosis, left arm. 2. Infection of the right knee. 3. Anemia. PLAN: Continue with current course and he may be able to go home in a day or 2. MMODL / IJN: [id number] /
[2019-04-15] MEDS: SODIUM FERRIC GLUCONAT-SUCROSE 125 MG in SODIUM CHLORIDE 0.9% 100 ML IVPB SCH (21:33)
[2019-04-16] MEDS: HEPARIN SOD,PORK IN 0.45% NACL 25,000 UNIT in 0.45% NACL 1 250ML.BAG IV SCH (01:59)
[2019-04-16] MEDS: traMADol 50 MG TAB PO PRN ×2 (06:04→19:01)
[2019-04-16] MEDS: ACETAMINOPHEN TAB 325 MG TAB PO PRN ×2 (06:05→19:02)
[2019-04-16 06:21] LABS: Anisocytosis Moderate; Basophils % (A) 0 %; Eosinophils % (A) 1 %; HCT 27.7 % (39.0-53.0); HGB 7.6 gm/dL (13.0-17.5); Hypochromasia Marked; Lymphocytes # (A) 0.5 k/uL (1.0-4.8); Lymphocytes % (A) 13 %; MCH 21.7 pg (25.0-35.0); MCHC 27.5 g/dL (31.0-37.0); MCV 79.1 fL (80.0-100.0); Mean Platelet Volume 8.4; Microcytosis Moderate; Monocytes # (A) 0.3 k/uL (0-1.0); Monocytes % (A) 9 %; Neutrophils # (A) 2.8 k/uL (1.3-7.7); Neutrophils % (A) 75 %; Platelet Count 207 k/uL (150-450); Poikilocytosis Marked; RDW 21.2 % (11.5-15.5); WBC 3.7 k/uL (3.8-10.6)
[2019-04-16] MEDS: FERROUS SULFATE 325 MG TAB PO SCH ×2 (08:24→19:02)
[2019-04-16] MEDS: predniSONE 10 MG TAB PO SCH (08:24)
--- NOTE | 2019-04-16 09:33 | P.PN ---
Subjective Progress Note Date: 04/16/19 This is a 58-year-old male who is admitted for DVT of the left upper extremity. The patient's right knee was aspirated at bedside on 04/10/2019. Patient underwent arthroscopy of the right knee with partial medial meniscectomy, removal of loose bodies, partial synovectomy of the medial femoral, bilateral f emoral and patellofemoral compartments on 03/13/[address] Eligio Rollins. During arthroscopy of the right knee, on 03/13/2019, an abscess was found in the left knee and incision and drainage of right knee was performed as well. Patient states that he was able to work on range of motion exercises for the right knee yesterday using his walker. Patient denies any new or worsening symptoms. Objective - Vital Signs Vital signs: Vital Signs Temp 97.7 F 04/16/19 06:21 Pulse 61 04/16/19 06:21 Resp 18 04/16/19 06:21 BP 145/74 04/16/19 06:21 Pulse Ox 96 04/16/19 06:21 Intake & Output 04/15/19 04/16/19 04/16/19 18:59 06:59 18:59 Intake Total 250.000 302.769 Balance 250.000 302.769 Weight 92.533 kg Intake: Intake, IV Titration 250.000 302.769 Amount Heparin Sod,Pork in 0.45% 250.000 302.769 NaCl 25,000 unit In 0.45 % NaCl 1 250ml.bag @ 18 UNITS/KG/HR 16.656 mls/hr IV .Q15H1M [facility] Rx#: [id number] Other: Voiding Method Toilet Urinal # Voids 2 1 # Bowel Movements 0 - Exam On exam patient is sitting up comfortably in bed in no acute distress. There is moderate swelling of the right knee. Patient has limited range of motion of the right knee due to pain and swelling. Calf is soft and nontender to palpation. Sensation intact. Neurovascular status and circulatory status are intact. - Labs CBC & Chem 7: 04/16/19 05:54 04/09/19 21:40 Labs: Abnormal Lab Results - Last 24 Hours (Table) 04/15/19 04/15/19 04/15/19 Range/Units 08:56 08:56 14:54 WBC (3.8-10.6) k/uL RBC 3.62 L (4.30-5.90) m/uL Hgb 7.6 L (13.0-17.5) gm/dL Hct 27.3 L (39.0-53.0) % MCV 75.6 L (80.0-100.0) fL MCH 21.2 L (25.0-35.0) pg MCHC 28.0 L (31.0-37.0) g/dL RDW 21.9 H (11.5-15.5) % Lymphocytes # 0.5 L (1.0-4.8) k/uL APTT 43.2 H 54.0 H (22.0-30.0) sec 04/16/19 04/16/19 Range/Units 05:54 05:54 WBC 3.7 L (3.8-10.6) k/uL RBC 3.50 L (4.30-5.90) m/uL Hgb 7.6 L (13.0-17.5) gm/dL Hct 27.7 L (39.0-53.0) % MCV 79.1 L (80.0-100.0) fL MCH 21.7 L (25.0-35.0) pg MCHC 27.5 L (31.0-37.0) g/dL RDW 21.2 H (11.5-15.5) % Lymphocytes # 0.5 L (1.0-4.8) k/uL APTT 77.3 H (22.0-30.0) sec Assessment and Plan (1) History of arthroscopy of right knee Current Visit: Yes Status: Acute Code(s): Z98.890 - OTHER SPECIFIED POSTPROCEDURAL STATES SNOMED Code(s): 881243953 (2) Deep vein thrombosis (DVT) of left upper extremity Current Visit: Yes Status: Acute Code(s): I82.622 - ACUTE EMBOLISM AND THROMBOSIS OF DEEP VEINS OF L UP EXTREM SNOMED Code(s): 014398111 (3) Effusion, right knee Current Visit: Yes Status: Acute Code(s): M25.461 - EFFUSION, RIGHT KNEE SNOMED Code(s): 481483741 Plan: 1. Cultures showing Coagulase-negative staph. 2. Appreciate input from internal medicine, hematolgoy and infectious disease. 3. No surgical intervention planned. Patient may follow up as an outpatient.
--- NOTE | 2019-04-16 12:22 | P.PN ---
Subjective Progress Note Date: 04/16/19 Principal diagnosis: Provoked UE DVT with history of HHT no bleeding on hep Objective - Vital Signs Vital signs: Vital Signs Temp 97.7 F 04/16/19 06:21 Pulse 61 04/16/19 06:21 Resp 18 04/16/19 06:21 BP 145/74 04/16/19 06:21 Pulse Ox 96 04/16/19 06:21 Intake & Output 04/15/19 04/16/19 04/16/19 18:59 06:59 18:59 Intake Total 250.000 302.769 Balance 250.000 302.769 Weight 92.533 kg Intake: Intake, IV Titration 250.000 302.769 Amount Heparin Sod,Pork in 0.45% 250.000 302.769 NaCl 25,000 unit In 0.45 % NaCl 1 250ml.bag @ 18 UNITS/KG/HR 16.656 mls/hr IV .Q15H1M [facility] Rx#: [id number] Other: Voiding Method Toilet Urinal # Voids 2 1 # Bowel Movements 0 - Exam General: Alert and Oriented x3, No Acute Distress Head: Normocytic, Atraumatic Neck: Supple Mouth: No Lesions, No Thrush Eyes: Non-sclerotic No Palpable cervical, supraclavicular, axillary adenopathy Heart: Regular Rate, Regular Rhythm Lungs: Clear to Ausculations, No Wheeze, No Rhonchi, Diminishe bilateral lower lobes, No increased respiratory effort noted Abdomen: Soft, Non-Distended, Non-Tended, BSx4 Extremities: RLE and LUE Edema, Neurological: No Focal Defects: No sensory or motor deficits noted Psych: Calm and cooperative - Labs CBC & Chem 7: 04/16/19 05:54 04/09/19 21:40 Labs: Abnormal Lab Results - Last 24 Hours (Table) 04/15/19 04/16/19 04/16/19 Range/Units 14:54 05:54 05:54 WBC 3.7 L (3.8-10.6) k/uL RBC 3.50 L (4.30-5.90) m/uL Hgb 7.6 L (13.0-17.5) gm/dL Hct 27.7 L (39.0-53.0) % MCV 79.1 L (80.0-100.0) fL MCH 21.7 L (25.0-35.0) pg MCHC 27.5 L (31.0-37.0) g/dL RDW 21.2 H (11.5-15.5) % Lymphocytes # 0.5 L (1.0-4.8) k/uL APTT 54.0 H 77.3 H (22.0-30.0) sec Assessment and Plan Plan: Assessment and Recommendations: LIDIA acute Provojked DVT: - Agree with anticoagulation at this time and recommend 3 months. - This appears provoked with history of recent surgery and picc line in same arm. HHT: - IV Iron - Anemia Iron studies Restart anticoagualation plan 3 months - BLE Doppler - Heparin drip now monitor bleeding 24-48 hours then switch DOAC\\ Will switch to eliquis today, monitor for bleeding 24 hours and if no bleeding and compltion of 5 Venofer will follow-up in office next week.
[2019-04-16] MEDS: APIXABAN 5 MG TAB PO SCH ×2 (13:17→19:02)
[2019-04-16] MEDS: SODIUM FERRIC GLUCONAT-SUCROSE 125 MG in SODIUM CHLORIDE 0.9% 100 ML IVPB SCH (20:06)
--- NOTE | 2019-04-16 20:32 | PN ---
PROGRESS NOTE DATE OF SERVICE: 04/15/2019. INTERVAL HISTORY: The patient is currently afebrile. Patient has been breathing comfortably. Denies having any chest pain or cough. No nausea, vomiting. No abdominal pain. No diarrhea. PHYSICAL EXAMINATION: Blood pressure 160/84, pulse of 59, temperature 98.4. He is 96% on room air. General description is a middle-aged male lying in bed in no distress. Respiratory system: Unlabored breathing. Clear to auscultation anteriorly. Heart S1, S2. Regular rate and rhythm. Abdomen is soft. No tenderness. Right knee is currently slightly swollen, but no redness, no drainage. LABS: Hemoglobin 7.6 with white count 5.0. DIAGNOSTIC IMPRESSION AND PLAN: Patient with right knee septic arthritis with MSSA. This patient was getting Rocephin in the outpatient setting. Subsequently developing deep vein thrombosis. The patient is status post repeat drainage and those cultures showing Staph epi, could be possibly contamination as the patient has no had clinical improvement on the Rocephin which should be continued for now to finish a course of therapy. Continue supportive care. MMODL / IJN: [id number] /
--- NOTE | 2019-04-16 20:39 | PN ---
PROGRESS NOTE DATE OF SERVICE: 04/16/2019. REASON FOR FOLLOWUP: Right knee septic arthritis. INTERVAL HISTORY: The patient is currently afebrile. Patient has been breathing comfortably. The patient denies having any chest pain. No shortness of breath. No cough. No nausea or vomiting. Pain in the right knee area. PHYSICAL EXAMINATION: Blood pressure 162/84 with a pulse of 59, temperature 98.4. He is 96% on room air. General description is a middle-aged male lying in bed in no distress. Respiratory system: Unlabored breathing. Clear to auscultation anteriorly. Heart S1, S2. Regular rate and rhythm. Abdomen soft, no tenderness. Right knee with some swelling but no drainage. LABS: Hemoglobin 7.3, white count 3.7 with right knee aspirate is Staph epi which is a sensitive pathogen. DIAGNOSTIC IMPRESSION AND PLAN: Patient with right knee septic arthritis, previous culture positive for MSSA. Repeat culture is Staph epi which is still oxacillin sensitive. Patient to continue with Rocephin 2 g daily to finish his course of therapy. Continue supportive care. MMODL / IJN: [id number] /
--- NOTE | 2019-04-16 21:57 | DS ---
DISCHARGE SUMMARY DATE OF DISCHARGE: 04/16/2019 CHIEF COMPLAINT: Swelling in the left arm. HISTORY OF PRESENT ILLNESS AND PHYSICAL EXAMINATION: Details of this man's history and physical can be found in the initial workup. LABORATORY STUDIES: While he was in the hospital he had laboratory studies, details of which can be found in the laboratory section of his chart. COURSE IN THE HOSPITAL: After admission he was placed on bedrest and anticoagulation with heparin. The PICC line was removed and the left arm slowly started to return to normal in size. He was seen by Orthopedics for the right knee, and it was not felt that this represented a pyarthrosis. While he was in the hospital he developed hemorrhage from the right nostril, which was controlled he was taken off of heparin. He was seen by Hematology, who recommended that he be anticoagulated, and Coumadin was started. He will go home on this and he will follow up with us as well as Hematology. FINAL DIAGNOSES: 1. Deep venous thrombosis of the left upper extremity. 2. Possible right knee pyarthrosis. 3. Hereditary hemorrhagic telangiectasia. 4. Epistaxis. OPERATIONS: None. CONSULTATIONS: 1. Hematology. 2. ENT. 3. Orthopedics. He is improved. MMODL / IJN: [id number] /
[2019-04-16 22:44] VITALS: RESP 20
[2019-04-17 05:20] VITALS: BP 179/92; PULSE 59; TEMP 98.1
[2019-04-17] MEDS: traMADol 50 MG TAB PO PRN (07:50)
[2019-04-17] MEDS: ACETAMINOPHEN TAB 325 MG TAB PO PRN (07:50)
[2019-04-17] MEDS: predniSONE 10 MG TAB PO SCH (07:51)
[2019-04-17] MEDS: APIXABAN 5 MG TAB PO SCH (07:51)
[2019-04-17] MEDS: FERROUS SULFATE 325 MG TAB PO SCH (07:51)
--- NOTE | 2019-04-17 13:23 | P.PN ---
Subjective Progress Note Date: 04/17/19 58 -year-old male who has a history of hereditary hemorrhagic telangiectasia presented hospital with increasing pain and swelling to his left arm. The patient had recently been hospitalized due to his significant infection to his right knee which required surgical intervention and drainage of abscess. Is receiving outpatient intravenous antibiotic therapy through the left arm PICC line. The patient had presented to the office his hemoglobin was profoundly low and he received outpatient blood transfusions via the PICC. Shortly thereafter the patient developed increasing pain and swelling to his left arm and was found evidence of a thrombosis. PICC line was removed and he was admitted and received anticoagulation. He will be discharged soon. He has received his new IV access to the right upper extremity and will be treated with anticoagulant therapy with Alquist. He will be following also with hematology. He did receive the infusion therapy also during his stay and did not require further blood transfusion. He is now feeling considerably better and looks forward to going home. No further fever chills or rigors. The knee pain is stable and not worsening. Objective - Vital Signs Vital signs: Vital Signs Temp 98.1 F 04/17/19 04:15 Pulse 59 L 04/17/19 04:15 Resp 20 04/17/19 04:15 BP 179/92 04/17/19 04:15 Pulse Ox 99 04/17/19 04:15 Intake & Output 04/16/19 04/17/19 04/17/19 18:59 06:59 18:59 Intake Total 850 100 Output Total 700 800 Balance 850 -600 -800 Intake: Oral 850 100 Output: Urine 700 800 Other: Voiding Method Toilet Urinal # Voids 2 2 - Exam HEENT: Anicteric conjunctiva are pink and moist nasal mucosa grossly intact without significant lesions, there is no thrush. Neck: The neck is supple without significant lymphadenopathy or thyromegaly. Lungs: Good bilateral air entry without significant crackles or wheezing. There is no significant bronchial sounds. There is no egophony or dullness. Heart: Regular rate and rhythm with an audible S1-S2, no S3 no S4. There is no significant murmur click or rub, PMI was nondisplaced. Abdomen: Positive bowel sounds soft and nontender without palpable masses or organomegaly. There was no guarding or rebound. Extremities:Right upper extremities shows evidence of PICC line that is intact without any difficulty. The left upper extremities shows evidence of the significant improved swelling in improvement of the blistering that had occurred. No Evidence of any drainage. The discomfort from the swelling is definitely improved. The right knee has range of motion that allows ambulation with a walker. The swelling discomfort erythema have all improved. Neuro: Awake alert oriented to person place and time. There are no acute new gross focal sensory motor deficits. - Labs CBC & Chem 7: 04/16/19 05:54 04/09/19 21:40 Labs: Laboratory Results WBC 3.7 k/uL (3.8-10.6) L 04/16/19 05:54 RBC 3.50 m/uL (4.30-5.90) L 04/16/19 05:54 Hgb 7.6 gm/dL (13.0-17.5) L 04/16/19 05:54 Hct 27.7 % (39.0-53.0) L 04/16/19 05:54 MCV 79.1 fL (80.0-100.0) L 04/16/19 05:54 MCH 21.7 pg (25.0-35.0) L 04/16/19 05:54 MCHC 27.5 g/dL (31.0-37.0) L 04/16/19 05:54 RDW 21.2 % (11.5-15.5) H 04/16/19 05:54 Plt Count 207 k/uL (150-450) 04/16/19 05:54 Neutrophils % 75 % 04/16/19 05:54 Neutrophils % (Manual) 83 % 04/14/19 05:10 Band Neutrophils % 1 % 04/14/19 05:10 Lymphocytes % 13 % 04/16/19 05:54 Lymphocytes % (Manual) 7 % 04/14/19 05:10 Monocytes % 9 % 04/16/19 05:54 Monocytes % (Manual) 9 % 04/14/19 05:10 Eosinophils % 1 % 04/16/19 05:54 Basophils % 0 % 04/16/19 05:54 Neutrophils # 2.8 k/uL (1.3-7.7) 04/16/19 05:54 Neutrophils # (Manual) 3.60 k/uL (1.3-7.7) 04/14/19 05:10 Lymphocytes # 0.5 k/uL (1.0-4.8) L 04/16/19 05:54 Lymphocytes # (Manual) 0.31 k/uL (1.0-4.8) L 04/14/19 05:10 Monocytes # 0.3 k/uL (0-1.0) 04/16/19 05:54 Monocytes # (Manual) 0.40 k/uL (0-1.0) 04/14/19 05:10 Eosinophils # 0.0 k/uL (0-0.7) 04/16/19 05:54 Basophils # 0.0 k/uL (0-0.2) 04/16/19 05:54 Nucleated RBCs 0 /100 WBC (0-0) 04/14/19 05:10 Manual Slide Review Performed 04/14/19 05:10 Polychromasia Present 04/14/19 05:10 Hypochromasia Marked 04/16/19 05:54 Poikilocytosis Marked 04/16/19 05:54 Poikilocytosis (manual Present 04/14/19 05:10 Anisocytosis Moderate 04/16/19 05:54 Anisocytosis (manual) Present 04/14/19 05:10 Microcytosis Moderate 04/16/19 05:54 Ovalocytes Present 04/14/19 05:10 Retic Count 5.9 % (0.5-2.0) H 04/13/19 19:58 PT 11.8 sec (9.0-12.0) 04/15/19 08:56 INR 1.1 (<1.2) 04/15/19 08:56 APTT 77.3 sec (22.0-30.0) H 04/16/19 05:54 Sodium 138 mmol/L (137-145) 04/09/19 21:40 Potassium 4.0 mmol/L (3.5-5.1) 04/09/19 21:40 Chloride 99 mmol/L (98-107) 04/09/19 21:40 Carbon Dioxide 31 mmol/L (22-30) H 04/09/19 21:40 Anion Gap 8 mmol/L 04/09/19 21:40 BUN 20 mg/dL (9-20) 04/09/19 21:40 Creatinine 0.47 mg/dL (0.66-1.25) L 04/09/19 21:40 Est GFR (CKD-EPI)AfAm >90 (>60 ml/min/1.73 sqM) 04/09/19 21:40 Est GFR (CKD-EPI)NonAf >90 (>60 ml/min/1.73 sqM) 04/09/19 21:40 Glucose 92 mg/dL (74-99) 04/09/19 21:40 Plasma Lactic Acid Fred 1.2 mmol/L (0.7-2.0) 04/09/19 21:40 Calcium 8.6 mg/dL (8.4-10.2) 04/09/19 21:40 Iron 7 ug/dL (65-175) L 04/12/19 06:18 TIBC 236 ug/dL (228-460) 04/12/19 06:18 Iron Saturation 2.97 (15.00-50.00) L 04/12/19 06:18 Ferritin 7.8 ng/mL (22.0-322.0) L 04/12/19 06:18 Total Bilirubin 0.9 mg/dL (0.2-1.3) 04/09/19 21:40 AST 23 U/L (17-59) 04/09/19 21:40 ALT 15 U/L (21-72) L 04/09/19 21:40 Alkaline Phosphatase 61 U/L (38-126) 04/09/19 21:40 Lactate Dehydrogenase 464 U/L (313-618) 04/13/19 10:55 Troponin I <0.012 ng/mL (0.000-0.034) 04/09/19 21:40 Total Protein 6.3 g/dL (6.3-8.2) 04/09/19 21:40 Albumin 3.3 g/dL (3.5-5.0) L 04/09/19 21:40 Vitamin B12 249.0 pg/mL (200.0-944.0) 04/12/19 06:18 Methylmalonic Acid 0.16 umol/L (<0.40) 04/12/19 06:18 Urine Color Yellow 04/09/19 21:40 Urine Appearance Clear (Clear) 04/09/19 21:40 Urine pH 6.0 (5.0-8.0) 04/09/19 21:40 Ur Specific [place] 1.025 (1.001-1.035) 04/09/19 21:40 Urine Protein 2+ (Negative) H 04/09/19 21:40 Urine Glucose (UA) Negative (Negative) 04/09/19 21:40 Urine Ketones Negative (Negative) 04/09/19 21:40 Urine Blood Moderate (Negative) H 04/09/19 21:40 Urine Nitrite Negative (Negative) 04/09/19 21:40 Urine Bilirubin Negative (Negative) 04/09/19 21:40 Urine Urobilinogen <2.0 mg/dL (<2.0) 04/09/19 21:40 Ur Leukocyte Esterase Negative (Negative) 04/09/19 21:40 Urine RBC 6 /hpf (0-5) H 04/09/19 21:40 Urine WBC 5 /hpf (0-5) 04/09/19 21:40 Urine Mucus Occasional /hpf (None) H 04/09/19 21:40 Synovial Crystals None Seen (None Seen) 04/10/19 15:46 Blood Type A Positive 04/12/19 22:52 Blood Type Recheck No 04/12/19 22:52 Antibody Screen NEGATIVE 04/12/19 22:52 Crossmatch See Detail 04/12/19 22:52 Spec Expiration Date 04/15/2019235104/12/19 22:52 Microbiology 04/10/19 14:40 Knee - Right Gram Stain - Final 04/10/19 14:40 Knee - Right Body Fluid Culture - Final Staphylococcus epidermidis Assessment and Plan (1) Deep vein thrombosis (DVT) of left upper extremity Status: Acute Code(s): I82.622 - ACUTE EMBOLISM AND THROMBOSIS OF DEEP VEINS OF L UP EXTREM SNOMED Code(s): 334939686 (2) Abscess of right knee Narrative/Plan: 58-year-old male who he has HHT presents to Hospital significant pain and swelling to his left arm. This is the site of the PICC line that is in place for the significant infection to his right knee. Deep venous thrombosis of the left upper extremity was noted and the PICC line was removed and anticoagulation with heparin was performed. He is now been transitioned to [facility] and tolerating that well. Hematology has cleared him for discharge home he's received multiple iron infusions and they will follow him in the outpatient clinic. His anemia was profoundly to require transfusion outpatient setting before the onset of all these difficulties. The PICC line in the right arm is been placed and he has approximately 3 weeks of intravenous antibiotic to finish in the outpatient setting with Rocephin 2 g a day. Weekly blood work is requested. Status: Acute Code(s): L02.415 - CUTANEOUS ABSCESS OF RIGHT LOWER LIMB SNOMED Code(s): 36059835 (3) Hereditary hemorrhagic telangiectasia Status: Acute Code(s): I78.0 - HEREDITARY HEMORRHAGIC TELANGIECTASIA SNOMED Code(s): 67268667
--- NOTE | 2019-04-17 23:24 | DS ---
DISCHARGE SUMMARY DISCHARGE SUMMARY ADDENDUM: DATE OF ADDENDUM: 04/17/2019 The patient was to have been discharged yesterday, but they wanted him to get one more iron infusion. He is feeling well. He is having no complaints. Basic exam is unchanged. IMPRESSION: 1. Hereditary hemorrhagic telangiectasia. 2. Deep venous thrombosis of the left arm. 3. Cellulitis of the right knee. 4. Dehydration. He will be going home today. MMODL / IJN: [id number] /
--- NOTE | 2019-04-24 11:14 | MISC ---
MISCELLANOUS REPORT QUERY: Chronic blood-loss anemia. MMODL / IJN: [id number] /
--- NOTE | 2019-04-26 12:54 | MISC ---
MISCELLANOUS REPORT QUERY: Anemia of chronic disease. MMODL / IJN: [id number] /
== END 2019-04-17 11:28 | disposition home or self-care (01) | DRG 315 ==
LOC: EC 18:20 → 4MS4W 21:11
PROVIDERS: ADMIT Family Medicine; ATTEND Family Medicine
PROC: 0S9C3ZX Drainage of Right Knee Joint, Percutaneous Approach, Diagnostic (ICD-10-PCS; principal; 2019-04-10)
PROC: 05HB33Z Insertion of Infusion Device into Right Basilic Vein, Percutaneous Approach (ICD-10-PCS; 2019-04-13 09:06)
DX: T82.868A Thrombosis due to vascular prosthetic devices, implants and grafts, initial encounter (principal); I82.622 Acute embolism and thrombosis of deep veins of left upper extremity; L02.415 Cutaneous abscess of right lower limb; L03.115 Cellulitis of right lower limb; M00.061 Staphylococcal arthritis, right knee; T81.40XA Infection following a procedure, unspecified, initial encounter; Y82.8 Other medical devices associated with adverse incidents; R04.0 Epistaxis; E86.0 Dehydration; I78.0 Hereditary hemorrhagic telangiectasia; M25.461 Effusion, right knee; Z79.2 Long term (current) use of antibiotics; Z79.52 Long term (current) use of systemic steroids; Z82.0 Family history of epilepsy and other diseases of the nervous system; D50.0 Iron deficiency anemia secondary to blood loss (chronic)
CPT/HCPCS: 36410; 71046; 76937; 80053; 81001; 82607; 82728; 83540; 83550; 83605; 83615; 83921; 84484; 85025; 85027; 85045; 85610; 85730; 86850; 86900; 86901; 86920; 87070; 87077; 87186; 87205; 89060; 93970; 96365; 96376; 99285

== ENCOUNTER 2019-05-01 11:42 | Day surgery (SDC) | payer OTHER ==
[2019-04-30 09:01] VITALS: BMI 26.9
[~2019-05-01 11:42] MED LIST changes: +DEXAMETHASONE SOD PHOSPHATE 10 MG/ML 1 ML VIAL IV ONE; +HYDROmorphone 0.5 MG/0.5 ML SYRINGE IVP PRN; +LACTATED RINGERS 1,000 ML IV SCH; +MIDAZOLAM 2 MG/2 ML VIAL IV PRN; +ONDANSETRON 4 MG/2 ML VIAL IVP ONE; +SCOPOLAMINE 1.5MG/72HR PATCH TRANSDERM ONE
[2019-05-01 12:11] VITALS: TEMP 98
[2019-05-01] MEDS ORDERED: ONDANSETRON 4 MG/2 ML VIAL IVP ONE (12:26)
[2019-05-01] MEDS ORDERED: DEXAMETHASONE SOD PHOSPHATE 10 MG/ML 1 ML VIAL IV ONE (12:27)
[2019-05-01] MEDS ORDERED: fentaNYL (PF) 50 MCG/ML 2 ML AMP ONE (14:34)
[2019-05-01] MEDS ORDERED: PROPOFOL 10 MG/ML 20 ML VIAL IV ONE (14:34)
[2019-05-01] MEDS ORDERED: MIDAZOLAM 2 MG/2 ML VIAL ONE (14:34)
[2019-05-01] MEDS ORDERED: MORPHINE SULFATE 10 MG/ML SYRINGE ONE (14:34)
--- NOTE | 2019-05-01 15:18 | P.OP ---
Date of Procedure: 05/01/19 Preoperative Diagnosis: Infection right knee Postoperative Diagnosis: Infection right knee Procedure(s) Performed: Arthroscopic irrigation debridement of the right knee Anesthesia: GLENN Surgeon: Eligio Rollins Estimated Blood Loss (ml): 10 Pathology: other (Cultures 2) Condition: stable Disposition: PACU Indications for Procedure: This is a 58-year-old gentleman has been followed by [facility] for persistent effusion an infection of the right knee he's had a prior irrigation debridement continues to have pain and swelling in his knee. After discussing the case with the patient as well as Dr. Ulrich from infectious disease, we decided to proceed with a repeat irrigation debridement of his knee and informed consent was obtained. Operative Findings: The operative findings are consistent with a prior infection of the knee. There was no evidence of gross purulence. There was a large amount of synovitis and scar tissue. Description of Procedure: Patient was seen and evaluated in the preoperative area, the operative site was marked with a skin marker. The patient was then brought to the operating room. The patient was already on scheduled antibiotic dose, so no additional preoperative antibiotics were given. A general anesthetic was administered by the anesthesia department. Tourniquet was placed on the left upper thigh and the left lower extremity was then prepped and draped in usual sterile fashion. A universal timeout was then performed confirming the patient's name, surgical site, ALLERGIES, and consent. Standard inferior medial and inferior lateral portals were established in the knee. The trochar was inserted in the inferolateral portal. 2 cultures were taken from the fluid expressed from the trochar. It was clear and bloody, but no evidence of any purulence. The knee was then examined and again found to have no purulence within the knee. There was a large amount of synovitis and scarring. Next, using an arthroscopic shaver, an extensive synovectomy was performed as well as an excision of scar tissue. Knee was then copiously irrigated, instruments removed, incisions were left open in order to drain. Sterile dressing was applied. Patient was then transferred to recovery room in stable condition.
[2019-05-01] MEDS ORDERED: hydrALAZINE HCL 20 MG/ML 1 ML VIAL IVP ONE (16:07)
[2019-05-01] MEDS ORDERED: LACTATED RINGERS 1,000 ML IV ONE (16:11)
[2019-05-01 16:28] VITALS: RESP 18
[2019-05-01 17:00] VITALS: BP 159/84; PULSE 69
== END 2019-05-01 17:43 | disposition home or self-care (01) ==
LOC: OR 11:42
PROVIDERS: ATTEND Orthopaedic Surgery
DX: T81.40XA Infection following a procedure, unspecified, initial encounter (principal); M65.88 Other synovitis and tenosynovitis, other site; I82.409 Acute embolism and thrombosis of unspecified deep veins of unspecified lower extremity; Z79.2 Long term (current) use of antibiotics; Z79.891 Long term (current) use of opiate analgesic; Z79.52 Long term (current) use of systemic steroids; Z79.899 Other long term (current) drug therapy; Z79.01 Long term (current) use of anticoagulants
CPT/HCPCS: 29876; 87070; 87205; 87075; J2250; J0360; J1100; J2270; J2405; J3010; J1642; J2704

== ENCOUNTER → 2019-05-16 | Outpatient (CLI) | payer OTHER ==
--- NOTE | 2019-05-16 15:17 | CT ---
EXAMINATION TYPE: CT ChestAbdPelvis w con DATE OF EXAM: 05/16/2019 COMPARISON: None HISTORY: 58-year-old male Hereditary hemorrhagic telangiectasia TECHNIQUE: Contiguous axial scanning of the chest, abdomen, and pelvis performed with IV Contrast, pa tient injected with 100 mL of Isovue 300. Delayed images through the kidneys. Coronal/sagittal recons tructions performed. CT DLP: 1041.2 mGycm Automated exposure control for dose reduction was used. FINDINGS: CHEST: Heart upper limits of normal in size without pericardial effusion. Aorta normal caliber with conventional vessel branching anatomy. No thoracic lymphadenopathy by CT size criteria. Enlarged caliber to the main right and left pulmonary arteries at 3.0 and 2.7 cm, respectively, sugge sting underlying pulmonary arterial hypertension. Some strandy dependent atelectasis is noted. No abnormal pulmonary nodules, consolidation, or pleural effusion. Tiny emphysematous cyst noted at the left base. ABDOMEN: Liver mildly enlarged at 18.1 cm. No focal liver lesion is identified. Portal venous system is patent but the main portal vein is border line to mildly dilated at 1.8 cm an d the splenic vein is borderline to mildly dilated at 1.1 cm. Gallbladder, adrenal glands, kidneys, and pancreas appear within normal limits. Spleen is enlarged measuring 17.8 cm craniocaudal. No dilated small bowel, free fluid, or free air. No mesenteric or retroperitoneal lymphadenopathy. Mild stool burden. No pericolonic inflammatory change. Pelvis: Bladder is urine distended. Prostate gland measures 4.2 cm wide. A couple prominent inguinal lymph no andrzej measure up to 1.6 cm on the right, refer to sagittal image 39. This can the followed clinically. Right external iliac chain lymph node measures 1.0 cm. No abnormal fluid collection in the pelvis. Bones: Sclerotic focus right iliac bone has stellate margins suggesting a bone island. Additional scattered sclerotic foci are present in the pelvis. Mild degenerative disc disease mid thoracic spine. Hypertro phic facet arthropathy mid to lower lumbar spine with grade 1 anterolisthesis at L4-L5. IMPRESSION: 1. BORDERLINE TO MILDLY ENLARGED CALIBER TO THE MAIN PORTAL VEIN AND SPLENIC VEIN AT 1.8 CM AND 1.1 C M, RESPECTIVELY. NONSPECIFIC FINDINGS THAT MAY BE SEEN IN THE SETTING OF PORTAL VENOUS HYPERTENSION. 2. OTHERWISE, NO SPECIFIC FINDINGS OF HHT WITHIN THE CHEST, ABDOMEN, OR PELVIS. 3. SPLENOMEGALY AT 17.8 CM. CLINICALLY CORRELATE.
== END | disposition home or self-care (01) ==
LOC: RADCTMAIN 12:18
PROVIDERS: ATTEND Internal Medicine Hematology & Oncology
DX: I87.8 Other specified disorders of veins (principal); R16.1 Splenomegaly, not elsewhere classified; I78.0 Hereditary hemorrhagic telangiectasia
CPT/HCPCS: 71260; 74177; Q9967

== ENCOUNTER → 2019-06-01 | Outpatient (CLI) | payer OTHER ==
--- NOTE | 2019-06-01 09:15 | CT ---
EXAMINATION TYPE: CT brain w con DATE OF EXAM: 06/01/2019 COMPARISON: None HISTORY: Hereditary hemorrhagic telangiectasia CT DLP: 12:30 mGycm Automated exposure control for dose reduction was used. CONTRAST: CT scan of the head is performed with IV Contrast, patient injected with 100 mL of Isovue 300. FINDINGS: There is no abnormal enhancing mass or midline shift identified. The 6 mm aneurysm in the left middle cerebral artery with prominence noted coronal image 28 seen best sagittal image 40 along the anterio r superior aspect. The ventricles and sulci are within normal limits in size. Krueger-white matter dif ferentiation is maintained. Air-fluid levels bilateral maxillary sinuses are noted. There is additional dependent fluid in the sm all caliber left sphenoid sinus. There is patchy opacification lateral aspect left frontal sinus. Globes are intact bilaterally. Some secretions in the right nasal vault are noted. IMPRESSION: 1. 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 Advise MRA ambler of [place] to confirm. 2. Acute paranasal sinus disease as detailed above.
== END | disposition home or self-care (01) ==
LOC: RADCTMAIN 07:04
PROVIDERS: ATTEND Internal Medicine Hematology & Oncology
DX: I78.0 Hereditary hemorrhagic telangiectasia (principal)
CPT/HCPCS: 70460; Q9967

== ENCOUNTER → 2019-07-12 | Outpatient (CLI) | payer OTHER ==
--- NOTE | 2019-07-12 11:14 | US ---
EXAMINATION TYPE: US venous doppler duplex UE LT DATE OF EXAM: 07/12/2019 COMPARISON: NONE CLINICAL HISTORY: left upper ext, R22.32 swelling. Previous Left arm DVT. No swelling today. On Shania jakob. SIDE PERFORMED: Left Left Arm: Negative for DVT IMPRESSION: No evidence for DVT at this time.
== END | disposition home or self-care (01) ==
LOC: RADUSWWP 10:20
PROVIDERS: ATTEND Internal Medicine Hematology & Oncology
DX: R22.32 Localized swelling, mass and lump, left upper limb (principal)

== ENCOUNTER → 2023-08-10 | Outpatient (CLI) | payer OTHER ==
[2023-08-10 08:59] LABS: Anisocytosis Slight; HCT 44.1 % (39.0-53.0); HGB 13.9 gm/dL (13.0-17.5); Hypochromasia Slight; MCH 25.6 pg (25.0-35.0); MCHC 31.6 g/dL (31.0-37.0); Mean Platelet Volume 9.2; Platelet Count 157 k/uL (150-450); RBC 5.45 m/uL (4.30-5.90); WBC 4.2 k/uL (3.8-10.6)
[2023-08-10 09:11] LABS: African American GFR (CKD) >90 (>60 ml/min/1.73 sqM); Anion Gap 8 mmol/L; Blood Urea Nitrogen 23 mg/dL (9-20); Calcium 9.4 mg/dL (8.4-10.2); Carbon Dioxide 27 mmol/L (22-30); Chloride 101 mmol/L (98-107); Glucose 121 mg/dL (74-99); Non-African American GFR(CKD) >90 (>60 ml/min/1.73 sqM); Potassium 4.2 mmol/L (3.5-5.1); Prothrombin Time 11.3 sec (10.0-12.5); Sodium 136 mmol/L (137-145)
== END | disposition home or self-care (01) ==
LOC: LABWHC1 08:21
PROVIDERS: ATTEND Internal Medicine Cardiovascular Disease
DX: I48.0 Paroxysmal atrial fibrillation (principal)
CPT/HCPCS: 36415; 80048; 85027; 85610

== ENCOUNTER 2024-05-27 08:39 | Inpatient (IN) | payer OTHER ==
[2024-05-27] MEDS: SODIUM CHLORIDE 0.9% 500 ML 500 ML IV ONE (09:23)
[2024-05-27 09:29] LABS: Anisocytosis Slight; Basophils % (A) 0 %; Eosinophils % (A) 1 %; HCT 37.1 % (39.0-53.0); HGB 12.4 gm/dL (13.0-17.5); Lymphocytes # (A) 0.4 k/uL (1.0-4.8); Lymphocytes % (A) 4 %; MCH 27.1 pg (25.0-35.0); MCHC 33.4 g/dL (31.0-37.0); Microcytosis Slight; Monocytes # (A) 0.7 k/uL (0-1.0); Monocytes % (A) 8 %; Neutrophils % (A) 86 %; Platelet Count 171 k/uL (150-450); RBC 4.58 m/uL (4.30-5.90); WBC 9.3 k/uL (3.8-10.6)
[2024-05-27 09:58] LABS: ALT 23 U/L (4-49); AST 33 U/L (17-59); African American GFR (CKD) >90 (>60 ml/min/1.73 sqM); Albumin 3.6 g/dL (3.5-5.0); Alkaline Phosphatase 50 U/L (38-126); Anion Gap 8 mmol/L; Blood Urea Nitrogen 23 mg/dL (9-20); Calcium 8.8 mg/dL (8.4-10.2); Carbon Dioxide 26 mmol/L (22-30); Chloride 100 mmol/L (98-107); Glucose 163 mg/dL (74-99); Non-African American GFR(CKD) >90 (>60 ml/min/1.73 sqM); Potassium 3.4 mmol/L (3.5-5.1); Sodium 134 mmol/L (137-145); Total Bilirubin 1.4 mg/dL (0.2-1.3); Total Protein 6.1 g/dL (6.3-8.2)
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
--- NOTE | 2024-05-27 10:35 | XR ---
Clavicle. HISTORY: Trauma. COMPARISON: None. TECHNIQUE: 2 views of the left clavicle were obtained. FINDINGS: There is a mildly displaced and apex angulated left mid clavicular fracture. There is minimal degener ation of the AC joint. IMPRESSION: Left mid clavicular fracture with displacement as described.
--- NOTE | 2024-05-27 11:25 | CT ---
EXAMINATION TYPE: CT ChestAbdPelvis w con DATE OF EXAM: 05/27/2024 COMPARISON: 05/16/2019 HISTORY: trauma, left side pain CT DLP: 1026.4 mGycm Automated exposure control for dose reduction was used. CONTRAST: CT scan of the chest, abdomen and pelvis is performed without Oral Contrast and with IV Contrast, pat ient injected with 100ml mL of Isovue 300. FINDINGS: CT chest: Interval development of bibasilar consolidative infiltrates with probable small left effusion. There is no pneumothorax. The great vessels and chest are normal there is no mediastinal, hilar or axillary adenopathy. There i s moderate cardiomegaly. There is a 13 mm right high right nodule, thyroid ultrasound recommended. There is a mildly displaced fracture through the mid left clavicle. There is a comminuted nonintra-articular fracture of the left scapula. There is minimally displaced fractures of the left lateral sixth, seventh, eighth, ninth and 10th rib s. CT abdomen and pelvis: Gallbladder is normal without distention, pericholecystic fluid, wall thickening or gallstone. There is no biliary ductal dilatation. There is no focal mass or organomegaly involving the liver, pancreas or adrenal glands. The spleen is approximately 14 cm in length consistent with borderline megaly. There is no solid renal mass or hydronephrosis. There is no retroperitoneal adenopathy or hemorrhage in the caliber of the abdominal aorta is normal. The bowel loops are normal in caliber and there is no dilatation or obstruction. No inflammatory galloway ges identified in the bowel wall and mesentery. There is mild scattered ascites adjacent to the liver edge, the spleen and within the pelvis. There is no pelvic mass or adenopathy. No focal osseous lesions are seen. Soft tissues of the abdominal wall and pelvis are normal. IMPRESSION: 1. Small to moderate bibasilar consolidative opacities with probable small left pleural effusion. Fin dings suggests bibasilar pneumonia. 2. Fractures of the left clavicle, left scapula and multiple left ribs as described above. 3. Mild splenomegaly 4 mild ascites
[2024-05-27] MEDS ORDERED: HYDROcodone/APAP 10-325MG 1 EACH TAB PO PRN (11:34)
[2024-05-27] MEDS ORDERED: ACETAMINOPHEN TAB 325 MG TAB PO PRN (11:34)
[2024-05-27] MEDS ORDERED: NALOXONE 0.4 MG/ML 1 ML VIAL IV PRN (11:34)
[2024-05-27] MEDS ORDERED: ONDANSETRON 4 MG/2 ML VIAL IVP PRN (11:34)
[2024-05-27] MEDS ORDERED: metFORMIN 500 MG TAB PO SCH (12:15)
[2024-05-27 12:46] LABS: Partial Thromboplastin Time 22.5 sec (22.0-30.0); Prothrombin Time 11.3 sec (10.0-12.5)
[2024-05-27 12:46] LABS: Appearance,Urine Clear (Clear); Bilirubin,Urine Negative (Negative); Blood,Urine Negative (Negative); Color,Urine Light Yellow; Glucose,Urine (UA) Negative (Negative); Ketones,Urine Negative (Negative); Leukocyte Esterase,Urine Negative (Negative); Nitrite,Urine Negative (Negative); Protein,Urine Negative (Negative); Urobilinogen,Urine <2.0 mg/dL (<2.0)
[2024-05-27 12:53] LABS: Specific Gravity,Urine >1.050 (1.001-1.035)
[2024-05-27] MEDS: MORPHINE SULFATE 2 MG/ML SYRINGE IVP PRN (13:23)
--- NOTE | 2024-05-27 15:11 | P.GSHP ---
History of Present Illness H&P Date: 05/27/24 Patient is status post fall. He presents with complicated clavicle fracture including multiple fractured right ribs. He complains mostly of right chest pain and epigastric pain. No otherwise diffuse abdominal pain. Patient is resting comfortably. He is using incentive spirometer. Recommend pulmonary toilet, pulmonary, pain management due to multiple rib fractures. Inpatient hospitalization with discharge pending consultants and treatment. Past Medical History Past Medical History: Blood Disorder, Deep Vein Thrombosis (DVT) Additional Past Medical History / Comment(s): HX Hereditary Hemorrhagic telangiectasia, recent hospitalization for cellulitis right knee,DVT left ARM, iron transfusions History of Any Multi-Drug Resistant Organisms: None Reported Past Surgical History: Orthopedic Surgery, Tonsillectomy Additional Past Surgical History / Comment(s): arm, wrist, and SONG Knee surgeries, right knee arthroscopy in February Past Anesthesia/Blood Transfusion Reactions: No Reported Reaction Past Psychological History: No Psychological Hx Reported Smoking Status: Never smoker Past Alcohol Use History: Occasional Past Drug Use History: None Reported - Past Family History Father Additional Family Medical History / Comment(s): Nessa Garigs disease Brother(s) History Unknown: Yes Additional Family Medical History / Comment(s): hemorrhagic Telangietasia Medications and Allergies Home Medications Medication Instructions Recorded Confirmed Type Ferrous Sulfate [Iron (65 MG 325 mg PO DAILY 10/08/19 05/27/24 History Elemental)] Chlorthalidone 25 mg PO DAILY 07/12/22 05/27/24 History Losartan Potassium 100 mg PO DAILY 07/12/22 05/27/24 History Ergocalciferol [Vitamin D2 (1250 1,250 mcg PO Q30D 07/20/23 05/27/24 History Mcg = 84498 Iu)] metFORMIN HCL 500 mg PO DIRECTED 10/10/23 05/27/24 History Metoprolol Succinate [Metoprolol 12.5 mg PO DAILY 05/27/24 05/27/24 History Succinate ER] Allergies Allergy/AdvReac Type Severity Reaction Status Date / Time No Known Allergies Allergy Verified 05/27/24 11:59 Surgical - Exam Vital Signs Temp Pulse Resp BP Pulse Ox 97.9 F 85 20 112/72 99 05/27/24 08:47 05/27/24 08:47 05/27/24 08:47 05/27/24 08:47 05/27/24 08:47 Results - Labs 05/27/24 09:22 05/27/24 09:22 Abnormal Lab Results - Last 24 Hours (Table) 05/27/24 05/27/24 05/27/24 Range/Units 09:22 09:22 09:22 Hgb 12.4 L (13.0-17.5) gm/dL Hct 37.1 L (39.0-53.0) % RDW 17.0 H (11.5-15.5) % Neutrophils # 8.0 H (1.3-7.7) k/uL Lymphocytes # 0.4 L (1.0-4.8) k/uL Sodium 134 L (137-145) mmol/L Potassium 3.4 L (3.5-5.1) mmol/L BUN 23 H (9-20) mg/dL Glucose 163 H (74-99) mg/dL Total Bilirubin 1.4 H (0.2-1.3) mg/dL Total Protein 6.1 L (6.3-8.2) g/dL Ur Specific [place] >1.050 H (1.001-1.035) Diabetes panel 05/27/24 Range/Units 09:22 Sodium 134 L (137-145) mmol/L Potassium 3.4 L (3.5-5.1) mmol/L Chloride 100 (98-107) mmol/L Carbon Dioxide 26 (22-30) mmol/L BUN 23 H (9-20) mg/dL Creatinine 0.69 (0.66-1.25) mg/dL Glucose 163 H (74-99) mg/dL Calcium 8.8 (8.4-10.2) mg/dL AST 33 (17-59) U/L ALT 23 (4-49) U/L Alkaline Phosphatase 50 (38-126) U/L Total Protein 6.1 L (6.3-8.2) g/dL Albumin 3.6 (3.5-5.0) g/dL Calcium panel 05/27/24 Range/Units 09:22 Calcium 8.8 (8.4-10.2) mg/dL Albumin 3.6 (3.5-5.0) g/dL Pituitary panel 05/27/24 Range/Units 09:22 Sodium 134 L (137-145) mmol/L Potassium 3.4 L (3.5-5.1) mmol/L Chloride 100 (98-107) mmol/L Carbon Dioxide 26 (22-30) mmol/L BUN 23 H (9-20) mg/dL Creatinine 0.69 (0.66-1.25) mg/dL Glucose 163 H (74-99) mg/dL Calcium 8.8 (8.4-10.2) mg/dL Adrenal panel 05/27/24 Range/Units 09:22 Sodium 134 L (137-145) mmol/L Potassium 3.4 L (3.5-5.1) mmol/L Chloride 100 (98-107) mmol/L Carbon Dioxide 26 (22-30) mmol/L BUN 23 H (9-20) mg/dL Creatinine 0.69 (0.66-1.25) mg/dL Glucose 163 H (74-99) mg/dL Calcium 8.8 (8.4-10.2) mg/dL Total Bilirubin 1.4 H (0.2-1.3) mg/dL AST 33 (17-59) U/L ALT 23 (4-49) U/L Alkaline Phosphatase 50 (38-126) U/L Total Protein 6.1 L (6.3-8.2) g/dL Albumin 3.6 (3.5-5.0) g/dL
[2024-05-27] MEDS: MORPHINE SULFATE 4 MG/ML SYRINGE IVP PRN (18:24)
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
[2024-05-28 06:45] LABS: Anisocytosis Slight; Basophils % (A) 0 %; Eosinophils # (A) 0.1 k/uL (0-0.7); Eosinophils % (A) 1 %; HCT 33.3 % (39.0-53.0); HGB 11.4 gm/dL (13.0-17.5); Lymphocytes # (A) 0.4 k/uL (1.0-4.8); Lymphocytes % (A) 6 %; MCH 27.9 pg (25.0-35.0); MCHC 34.3 g/dL (31.0-37.0); MCV 81.3 fL (80.0-100.0); Mean Platelet Volume 8.5; Microcytosis Slight; Monocytes # (A) 0.5 k/uL (0-1.0); Monocytes % (A) 7 %; Neutrophils # (A) 5.9 k/uL (1.3-7.7); Neutrophils % (A) 83 %; Platelet Count 127 k/uL (150-450); RDW 17.3 % (11.5-15.5); WBC 7.1 k/uL (3.8-10.6)
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
[2024-05-28] MEDS: LOSARTAN 50 MG TAB PO SCH (08:39)
[2024-05-28] MEDS: CHLORTHALIDONE 25 MG TAB PO SCH (08:39)
[2024-05-28] MEDS: FERROUS SULFATE 325 MG TAB PO SCH (08:39)
[2024-05-28] MEDS: METOPROLOL SUCCINATE (ER) 25 MG TAB.ER.24H PO SCH (08:40)
[2024-05-28] MEDS: HYDROcodone/APAP 5-325MG 1 EACH TAB PO PRN (08:44)
--- NOTE | 2024-05-28 09:08 | XR ---
EXAMINATION TYPE: XR chest 1V portable DATE OF EXAM: 05/28/2024 Comparison: CT 05/27/2024 Clinical History: 63-year-old male Chest Trauma, increasing pain Findings: Exam limited by portable technique, rightward patient rotation, and patient being tilted towards the right. The positioning alters the normal cardiomediastinal contours. Prominence to the aortic knob li mary due to rotation. Focal bibasilar opacities, left greater than right lung with trace left pleural effusion. Known fractures of the mid left clavicular shaft with similar 4 mm of displacement. Known fracture body of the left scapula not well-distended. Known fractures of multiple left-sided ribs not well depicted on the current exam. Impression: 1. Exam limited by positioning and rotation. Known fractures of the mid left clavicular shaft, body o f the left scapula, and multiple left-sided rib fractures not as well characterized on patient's CT f rom yesterday. 2. Focal bibasilar opacities, left greater than right, redemonstrated. Correlate to exclude aspiratio n pneumonitis. Trace left pleural effusion. No appreciable pneumothorax.
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
[2024-05-28 13:26] LABS: African American GFR (CKD) >90 (>60 ml/min/1.73 sqM); Anion Gap 4 mmol/L; Blood Urea Nitrogen 20 mg/dL (9-20); Calcium 8.5 mg/dL (8.4-10.2); Carbon Dioxide 31 mmol/L (22-30); Chloride 97 mmol/L (98-107); Glucose 127 mg/dL (74-99); Non-African American GFR(CKD) >90 (>60 ml/min/1.73 sqM); Potassium 3.3 mmol/L (3.5-5.1); Sodium 132 mmol/L (137-145)
[2024-05-28] MEDS ORDERED: SENNOSIDES 8.6 MG TAB PO PRN (15:25)
--- NOTE | 2024-05-28 15:25 | P.PAINPG ---
Objective - Vital Signs Vital signs: Vital Signs Temp 97.9 F 05/27/24 08:47 Pulse 90 05/28/24 14:00 Resp 18 05/28/24 14:00 BP 123/90 05/28/24 14:00 Pulse Ox 98 05/28/24 14:00 FiO2 Intake & Output 05/27/24 05/28/24 05/28/24 18:59 06:59 18:59 Output Total 1000 Balance -1000 Weight 102.058 kg Output: Urine 1000 - Labs CBC & Chem 7: 05/28/24 06:26 05/28/24 06:26 Labs: Abnormal Lab Results - Last 24 Hours (Table) 05/28/24 05/28/24 Range/Units 06:26 06:26 RBC 4.10 L (4.30-5.90) m/uL Hgb 11.4 L (13.0-17.5) gm/dL Hct 33.3 L (39.0-53.0) % RDW 17.3 H (11.5-15.5) % Plt Count 127 L (150-450) k/uL Lymphocytes # 0.4 L (1.0-4.8) k/uL Sodium 132 L (137-145) mmol/L Potassium 3.3 L (3.5-5.1) mmol/L Chloride 97 L (98-107) mmol/L Carbon Dioxide 31 H (22-30) mmol/L Creatinine 0.58 L (0.66-1.25) mg/dL Glucose 127 H (74-99) mg/dL PQRS Measure Charge Sheet Comment: HISTORY OF PRESENT ILLNESS: A 63 yr old inpatient male as a referral from [facility] presents today w severe acute L chest pain secondary to fracture from fall 1 day ago for evaluation. Pt states pain level is provoked at 10 /10 in intensity w any movement, constant, generalized in the L shoulder and L chest region, sharp in character without shooting pain. Pain is alleviated by medications ([place] 10/325mg q6h prn, MS 4mg IVP q4h prn, Tyl 650mg q6h prn), repositioning and rest . PMH: OA, DVT, Hereditary Hemorrhagic Telangiectasia PSH: Orthopedic Surgery, Tonsillectomy, BL Knee Surgeries, R Knee Arthroscopy (Feb 2024) SH: Never smoker, Occasional ETOH use, No ilicit drug use FH: Fa- ALS. Bro- Hemorrhagic Telangietasia All: See list Meds: See list REVIEW OF ORGAN SYSTEMS: CONSTITUTIONAL: No fevers or chills. No recent weight loss. NEUROLOGICAL: + numbness and tingling along the distal extremities. No seizure disorders or headaches. MUSCULOSKELETAL: + pain PSYCHIATRIC: Denies current depression or suicidal thoughts. Physical Examinations : Constitutional : Cooperative , not in acute distress . Neurologic : Cranial nerve II to XII intact. No focal neurological deficits. Psychiatric : alert & oriented x 3. Matching mood & appropriate affect. Judgment & insight intact. Musculoskeletal : Cervical Spine +L diffuse shoulder TTP w L chest axillary midline TTP Motor strength in the deltoid and biceps: Normal right side. Normal Left side Motor strength biceps and the wrist extensors: Normal right side . Normal left side Motor strength in the triceps muscle: Normal right side. Normal left side Deep tendon reflexes: Normal at the biceps. Normal at Brachioradialis. Normal at triceps Vertebral body tenderness to deep palpation over Cervical facet loading test: positive bilaterally Spurling test: positive bilaterally Neck distraction test: positive bilaterally Nuha sign: positive bilaterally Lumbar spine Motor strength lower extremities ,thigh and legs 5/5 Right side , 5/5 Left side Deep tendon reflexes : Normal Knee Jerk. Normal Ankle Jerk Vertebral body tenderness over Raya Test positive Lumbar facet Loading Test: positive Right / positive Left Range of motion of the lumbar spine Flexion 30 degrees, extension 10 degrees Straight Leg Raise test: Left/ Right positive at degrees Nathan test: positive right / positive left. Severe tenderness over the Sacroiliac joint on the Right / Left sides Gaenslen test: positive bilaterally Seated flexion test: positive bilaterally. Sacral spine : Severe tenderness over the Sacroiliac joint: right side / left side Range of motion: Flexion of the lumbar spine <60 degrees Range of motion: Extension of the lumbar spine <20 degrees Gaenslen's Test positive Nathan test: positive right side / left side Thigh Thrust Test Sacral Thrust Test Imaging: L shoulder x ray from 05/27/24 reviewed CXR from 05/28/[address] non contrast of chest from 05/27/24 reviewed Assessment/ Plan : L mid clavicular Fx, L scapular Fx, L mildly displaced L 6th- 10th rib fractures Recommendation of medication management. Continue Anitha, MS IVP and Tyl as di rected. Pt complained of constipation so will add Senokot 8.6mg BID prn. All questions answered. I have spent greater than 30 minutes on patient care today. Dr Pérez was available by phone for the evaluation of this patient. The time was used to review the medical records including relevant urine studies and Prescription history (MAPs), review of the available imaging, evaluation and examination of the patient, coordination of care with the medical staff and if applicable referring physicians, as well as creation of the medical record PQRS Narrative: Smoking Status Never smoker Blood Pressure 123/90 Pain Intensity 4 Pain Scale Used Numeric (1 - 10) Scale Used Numeric (1 - 10) Home Medications: Ambulatory Orders Ferrous Sulfate [Iron (65 MG Elemental)] 325 mg PO DAILY 10/08/19 Chlorthalidone 25 mg PO DAILY 07/12/22 Losartan Potassium 100 mg PO DAILY 07/12/22 Ergocalciferol [Vitamin D2 (1250 Mcg = 67515 Iu)] 1,250 mcg PO Q30D 07/20/23 metFORMIN HCL 500 mg PO DIRECTED 10/10/23 Metoprolol Succinate [Metoprolol Succinate ER] 12.5 mg PO DAILY 05/27/24 Controlled Substance Measures - Controlled Substance Measures Is patient prescribed a controlled substance at discharge?: No
[2024-05-29 07:48] VITALS: RESP 16
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
[2024-05-29] MEDS: polyethylene glycoL 3350 17 GM POWD.PACK PO SCH (13:58)
[2024-05-29] MEDS: FAMOTIDINE 20 MG TAB PO SCH (13:59)
[2024-05-29] MEDS: POTASSIUM CHLORIDE ER 20 MEQ TAB.ER PO STA (13:59)
[2024-05-29] MEDS: HEPARIN SODIUM,PORCINE 5,000 UNIT/ML 1 ML VIAL SQ SCH (13:59)
[2024-05-29] MEDS: KETOROLAC 15 MG/ML 1 ML VIAL IVP SCH (14:01)
[2024-05-29] MEDS: SENNOSIDES 8.6 MG TAB PO SCH (20:44)
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
[2024-05-30 11:13] LABS: African American GFR (CKD) 88 (>60 ml/min/1.73 sqM); Anion Gap 7 mmol/L; Blood Urea Nitrogen 45 mg/dL (9-20); Calcium 8.6 mg/dL (8.4-10.2); Carbon Dioxide 34 mmol/L (22-30); Chloride 93 mmol/L (98-107); Glucose 161 mg/dL (74-99); Non-African American GFR(CKD) 76 (>60 ml/min/1.73 sqM); Potassium 3.2 mmol/L (3.5-5.1); Sodium 134 mmol/L (137-145)
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
[2024-05-30 13:06] VITALS: BP 115/77; PULSE 74; TEMP 98.3
[2024-05-30] MEDS: POTASSIUM CHLORIDE ER 20 MEQ TAB.ER PO STA (13:13)
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
[2024-06-19] MEDS ORDERED: ERGOCALCIFEROL 1,250 MCG (50,000 IU) CAPSULE PO SCH (09:00)
== END 2024-05-30 15:45 | disposition home or self-care (01) | DRG 342 ==
LOC: EC 08:39 → 4SSUR 11:50 → 5NMEDONC 19:48
PROVIDERS: ADMIT Surgery Plastic and Reconstructive Surgery; ATTEND Surgery Plastic and Reconstructive Surgery
DX: S42.022A Displaced fracture of shaft of left clavicle, initial encounter for closed fracture (principal); S22.42XA Multiple fractures of ribs, left side, initial encounter for closed fracture; S27.321A Contusion of lung, unilateral, initial encounter; I78.0 Hereditary hemorrhagic telangiectasia; S42.102A Fracture of unspecified part of scapula, left shoulder, initial encounter for closed fracture; V86.56XA Driver of dirt bike or motor/cross bike injured in nontraffic accident, initial encounter; J98.11 Atelectasis; I10 Essential (primary) hypertension; I48.91 Unspecified atrial fibrillation; K59.00 Constipation, unspecified; Z79.84 Long term (current) use of oral hypoglycemic drugs; Z79.899 Other long term (current) drug therapy; Z86.718 Personal history of other venous thrombosis and embolism
CPT/HCPCS: 36415; 71045; 71260; 74177; 80048; 80053; 81003; 83605; 85025; 85610; 85730; 96361; 96374; 96376; 99285